=== PATIENT | female | born 1970 | race Caucasian/White ===

== ENCOUNTER 2017-05-03 11:02 | Emergency (ER) | payer OTHER ==
[2017-05-03 11:11] VITALS: BP 117/73; PULSE 83; TEMP 99.1; BMI 25.7
[2017-05-03] MEDS ORDERED: KETOROLAC TROMETHAMINE 60 MG/2 ML VIAL IM ONE (12:04)
--- NOTE | 2017-05-03 12:04 | PDOC ---
History of Present Illness - General Chief Complaint: Pain, Acute Stated Complaint: BACK PAIN Time Seen by Provider: 05/03/17 11:43 History Source: Patient Exam Limitations: No Limitations Past History - Past Medical History Allergies/Adverse Reactions: Allergies Allergy/AdvReac Type Severity Reaction Status Date / Time Iodinated Contrast- Oral and Allergy Hives Verified 05/03/17 11:07 IV Dye [Iodinated Contrast Media - IV Dye] Home Medications: Ambulatory Orders Levetiracetam [Keppra] 1,000 mg PO BID 03/17/15 Cyclobenzaprine HCl [Flexeril -] 10 mg PO HS #10 tablet 05/03/17 Ibuprofen 800 mg PO TID #30 tablet 05/03/17 COPD: No DVT: No Dementia: No Seizures: Yes - Surgical History Appendectomy: Yes - Immunization History Immunization Up to Date: Yes - Suicide/Smoking/Psychosocial Hx Smoking Status: No Smoking History: Never smoked Have you smoked in the past 12 months: No Number of Cigarettes Smoked Daily: 0 Information on smoking cessation initiated: No Hx Alcohol Use: No Drug/Substance Use Hx: No Substance Use Type: None Hx Substance Use Treatment: No *Physical Exam - Vital Signs Last Vital Signs Temp Pulse Resp BP Pulse Ox 99.1 F 83 15 117/73 98 05/03/17 11:08 05/03/17 11:08 05/03/17 11:08 05/03/17 11:08 05/03/17 11:08 *DC/Admit/Observation/Transfer Diagnosis at time of Disposition: Upper back pain on left side - Discharge Dispostion Disposition: HOME Condition at time of disposition: Good Admit: No - Prescriptions Prescriptions: Cyclobenzaprine HCl [Flexeril -] 10 mg PO HS #10 tablet Ibuprofen 800 mg PO TID #30 tablet - Referrals Referrals: Burt Mas MD [Staff Physician] - Kareem Clark MD [Staff Physician] - - Patient Instructions Printed Discharge Instructions: DI for Thoracic Back Pain Additional Instructions: You have back pain due to a muscle spasm. Please take ibuprofen 800 mg 3 times a day not to exceed 3000 mg a day. You were also prescribed Flexeril. Please take this medication every 8 hours for the first day. Then take the medication before you go to bed. Do not drive after taking this medication as it may make you sleepy. You may use warm compresses on your back to help with your symptoms. Please follow-up with your primary care doctor. If your symptoms do not resolve in 3-5 days, follow-up with orthopedics. A referral has been provided for you. Return to the emergency department if you have worsening back pain, bladder or bowel incontinence, numbness and tingling in her legs, changes in the way you walk, or any new or worsening symptoms. - Post Discharge Activity Forms/Work/School Notes: Back to Work
[2017-05-03] MEDS ORDERED: CYCLOBENZAPRINE HCL 10 MG TABLET (FP) PO ONE (12:06)
[2017-05-03] MEDS ORDERED: KETOROLAC TROMETHAMINE 60 MG/2 ML VIAL ONE (12:08)
[2017-05-03] MEDS ORDERED: CYCLOBENZAPRINE HCL 10 MG TABLET (FP) ONE (12:12)
== END 2017-05-03 12:44 | disposition home or self-care (01) ==
LOC: JERFT 11:02
PROC: 3E0233Z Introduction of Anti-inflammatory into Muscle, Percutaneous Approach (ICD-10-PCS; principal; 2017-05-03)
DX: M54.6 Pain in thoracic spine (principal); Z86.69 Personal history of other diseases of the nervous system and sense organs
CPT/HCPCS: 96372; 99281-25

== ENCOUNTER 2017-07-19 09:27 | Day surgery (SDC) | payer OTHER ==
[2017-07-16 15:10] VITALS: BMI 26.5
[2017-07-19] MEDS ORDERED: PROPOFOL 20 ML ONE (09:34)
[2017-07-19] MEDS ORDERED: LIDOCAINE HCL 2% (20ML MULTI-DOSE VIAL) NR ONE (09:34)
[2017-07-19 12:11] VITALS: TEMP 97.6
--- NOTE | 2017-07-19 12:16 | PROC ---
Endoscopy Procedure Endoscopy procedure completed. Please see scanned procedure report.
[2017-07-19 12:36] VITALS: PULSE 54
[2017-07-19 13:22] VITALS: BP 109/60
[2017-07-19] MEDS ORDERED: CITRIC ACID/SODIUM CITRATE 30 ML UNIT-DOSE CUP ONE (14:10)
--- NOTE | 2017-07-20 11:55 | PATH ---
Surgical Pathology Report Patient Name: ANURAG VALVERDE [facility]. Rec. #: [id number] /Age/Gender: 1970 (Age: 47) / F Account: [id number] Location: [facility]-ENDOSCOPY Taken: 07/19/2017 Received: 07/19/2017 Reported: 07/20/2017 Physicians: Ziggy Rivero M.D. Specimen(s) Received A: BX SECOND PORTION DUODENUM B: BX ANTRUM / BODY C: POLYP IN THE FUNDUS Clinical History Preoperative diagnosis: Epigastric pain, family history of GI malignancy Postoperative diagnosis: Polyp in the fundus, gastritis, normal colonoscopy Final Diagnosis A. DUODENUM, SECOND PORTION, BIOPSY: DUODENAL MUCOSA WITH NO PATHOLOGIC CHANGES. NO HISTOLOGIC EVIDENCE OF GLUTEN SENSITIVE ENTEROPATHY (CELIAC SPRUE) IDENTIFIED. B. STOMACH, ANTRUM AND BODY, BIOPSY: GASTRIC MUCOSA WITH NO PATHOLOGIC CHANGES. IMMUNOSTAIN FOR H. PYLORI IS NEGATIVE. C. STOMACH, FUNDUS POLYP, BIOPSY: HYPERPLASTIC FOVEOLAR GLAND POLYP WITH ASSOCIATED MILD CHRONIC INFLAMMATION. NO ADENOMATOUS CHANGE IDENTIFIED. IMMUNOSTAIN FOR H. PYLORI IS NEGATIVE. Electronically Signed Sunday Burch M.D. Gross Description A. Received in formalin, labeled "biopsy second portion of duodenum" is a shaw, irregular portion of soft tissue measuring 0.5 cm. in greatest dimension. The specimen is submitted in toto in one cassette. B. Received in formalin, labeled "biopsy antrum/body" are 3 shaw, irregular portions of soft tissue ranging from 0.1-0.3 cm. in greatest dimension. The specimens are submitted in toto in one cassette. C. Received in formalin, labeled "biopsy polyp in the fundus" are 2 shaw, irregular portions of soft tissue measuring 0.2 and 0.5 cm. in greatest dimension. The specimens are submitted in toto in one cassette. /07/19/201707/19/2017
== END 2017-07-19 14:09 | disposition home or self-care (01) ==
LOC: JASU-ENDO 09:27
PROVIDERS: ATTEND Internal Medicine Gastroenterology
PROC: 0DB68ZX Excision of Stomach, Via Natural or Artificial Opening Endoscopic, Diagnostic (ICD-10-PCS; 2017-07-19)
PROC: 0DJD8ZZ Inspection of Lower Intestinal Tract, Via Natural or Artificial Opening Endoscopic (ICD-10-PCS; 2017-07-19)
PROC: 0DB98ZX Excision of Duodenum, Via Natural or Artificial Opening Endoscopic, Diagnostic (ICD-10-PCS; principal; 2017-07-19 10:30)
DX: Z12.11 Encounter for screening for malignant neoplasm of colon (principal); Z80.0 Family history of malignant neoplasm of digestive organs; K64.8 Other hemorrhoids; K25.9 Gastric ulcer, unspecified as acute or chronic, without hemorrhage or perforation; K31.7 Polyp of stomach and duodenum
CPT/HCPCS: 43239; G0105; 88305-TC; 88342-TC

== ENCOUNTER 2018-04-25 23:49 | Inpatient (IN) | payer OTHER ==
--- NOTE | 2018-04-26 01:15 | PDOC ---
History of Present Illness - General Chief Complaint: Pain, Acute Stated Complaint: BACK PAIN Time Seen by Provider: 04/26/18 01:13 History Source: Patient - History of Present Illness Initial Comments: 04/26/18 01:47 48-year-old Female complaining of left-sided back pain radiating to left side abdomen for the last 10 days. Patient reports that for the past 3 days she's been having consistent pain to the left side/flank, dysuria, frequency of urination, chills. Patient has been taking Motrin at home with no relief in pain. Patient medical history : seizures, hysterectomy for DUB / right oopherctomy for cyst, left ovarian cyst multiple family members have history of renal disease, renal cancers. 04/26/18 04:12 Past History - Past Medical History Allergies/Adverse Reactions: Allergies Allergy/AdvReac Type Severity Reaction Status Date / Time Iodinated Contrast- Oral and Allergy Hives Verified 05/07/18 17:54 IV Dye [Iodinated Contrast Media - IV Dye] Home Medications: Ambulatory Orders Levetiracetam [Keppra] 1,000 mg PO BID 03/17/15 Propranolol HCl 20 mg PO DAILY 04/27/18 Anemia: No Asthma: No Cancer: No Cardiac Disorders: No CVA: No COPD: No CHF: No DVT: No Dementia: No Diabetes: No GI Disorders: No Disorders: No HTN: No Hypercholesterolemia: No Liver Disease: No Seizures: Yes (EPILEPSY) Thyroid Disease: No - Surgical History Abdominal Surgery: No Appendectomy: Yes Cardiac Surgery: No Cholecystectomy: No Lung Surgery: No Neurologic Surgery: No Orthopedic Surgery: No - Immunization History Immunization Up to Date: Yes - Suicide/Smoking/Psychosocial Hx Smoking Status: No Smoking History: Never smoked Have you smoked in the past 12 months: No Number of Cigarettes Smoked Daily: 0 Hx Alcohol Use: No Drug/Substance Use Hx: No Substance Use Type: None Hx Substance Use Treatment: No Review of Systems - Review of Systems Able to Perform ROS?: Yes Is the patient limited Sinhala proficient: No Constitutional: Yes: Chills ABD/GI: Yes: Abdominal cramping : Yes: Burning, Dysuria, Frequency, Flank Pain, Urgency *Physical Exam - Vital Signs 04/26/18 01:50 Last Vital Signs Temp Pulse Resp BP Pulse Ox 97.8 F 76 22 H 118/77 96 04/25/18 23:55 04/25/18 23:55 04/25/18 23:55 04/25/18 23:55 04/25/18 23:55 - Physical Exam General Appearance: Yes: Appropriately Dressed Gastrointestinal/Abdominal: positive: Normal Bowel Sounds, Tender (LLQ), Soft Musculoskeletal: positive: CVA Tenderness (L). negative: Vertebral Tenderness Extremity: positive: Normal Capillary Refill, Normal Inspection, Normal Range of Motion Integumentary: positive: Normal Color, Dry, Warm Neurologic: positive: Fully Oriented, Alert, Normal Mood/Affect ED Treatment Course - LABORATORY CBC & Chemistry Diagram: 04/27/18 07:00 04/27/18 07:00 Medical Decision Making - Medical Decision Making 04/26/18 01:51 A: pyelonephritis CT spiral: Mild left perinephric fat stranding and periureteral fat stranding may be due to pyelonephritis. Moderate left hydronephrosis and hydroureter. No stones in the left ureter and no stones in the bladder. Left adnexa 5 x 4.3 x 3.1 cm nonspecific mass like prominence of the left ovary with mild left adnexa fat stranding is suspicious for tubo-ovarian abscess infection or a benign or malignant left ovarian mass inseparable from the left distal ureter and associated infection or malignant spread near or surrounding the left distal ureter cannot be completely excluded with partial obstruction of the distal left ureter on axial images 96-109. If clinically indicated recommend correlation with Transabdominal Pelvic Ultrasound And Endovaginal Pelvic Ultrasound.04/26/18 04:11 04/26/18 04:[address] Felipe (interior decorator painting) recommends treatment of abscess. send tumor markers, patient to be admitted for further management of care. patient signed out to Dr. Bowman/ Dr cruz *DC/Admit/Observation/Transfer Diagnosis at time of Disposition: Acute left flank pain, Pyelonephritis, Intractable abdominal pain, Left tubo- ovarian abscess - Discharge Dispostion Disposition: HOME Condition at time of disposition: Good Decision to Admit order: Yes - Referrals - Patient Instructions - Post Discharge Activity
[2018-04-26] MEDS ORDERED: SODIUM CHLORIDE 0.9% 500 ML INFUS.BAG IV ONE (01:32)
[2018-04-26 01:52] LABS: URINE APPEARANCE CLOUDY; URINE BILIRUBIN NEGATIVE (<2.0 mg/dL); URINE COLOR YELLOW; URINE GLUCOSE (UA) NEGATIVE (NEGATIVE); URINE KETONE NEGATIVE (NEGATIVE); URINE LEUK ESTERASE 3+ (NEGATIVE); URINE NITRITE POSITIVE (NEGATIVE); URINE PROTEIN 1+ (NEGATIVE); URINE UROBILINOGEN NEGATIVE mg/dL (0.2-1.0)
[2018-04-26 01:59] LABS: EPI CELLS RARE /HPF (FEW); URINE BACTERIA RARE /hpf (NONE SEEN); URINE HYALINE CAST 3 /lpf; URINE MUCUS MANY
[2018-04-26] MEDS ORDERED: CEFTRIAXONE 1,000 MG in DEXTROSE 5%-WATER - 50 ML IVPB ONE (02:12)
[2018-04-26] MEDS ORDERED: KETOROLAC TROMETHAMINE 30 MG/1 ML VIAL IVPUSH ONE (02:13)
[2018-04-26] MEDS ORDERED: CEFTRIAXONE 1 GM/50 ML BAG ONE (02:17)
[2018-04-26] MEDS ORDERED: KETOROLAC TROMETHAMINE 30 MG/1 ML VIAL ONE (02:17)
[2018-04-26 02:54] LABS: HEMATOCRIT 39.1 % (32.4-45.2); HEMOGLOBIN 13.9 GM/dL (10.7-15.3); RBC 4.21 M/mm3 (3.60-5.2); WHITE BLOOD COUNT 13.2 K/mm3 (4.0-10.0)
[2018-04-26 02:55] LABS: BASO % 0.3 % (0-2.0); EOS % 0.3 % (0-4.5); LYMPH % 23.7 % (8-40); MCH 32.9 pg (25.7-33.7); MCHC 35.5 g/dl (32.0-36.0); MEAN CELL VOLUME 92.8 fl (80-96); MONO % 5.4 % (3.8-10.2); NEUT % 70.3 % (42.8-82.8); RDW 12.3 % (11.6-15.6)
[2018-04-26 03:17] LABS: PLATELET ESTIMATE NORMAL
[2018-04-26 03:20] LABS: ALBUMIN 4.2 g/dl (3.4-5.0); ALK PHOS 79 U/L (45-117); ANION GAP 6 MMOL/L (8-16); BILIRUBIN,TOTAL 0.4 mg/dL (0.2-1); BLOOD UREA NITROGEN 18 mg/dL (7-18); CHLORIDE 104 mmol/L (98-107); CO2 26 mmol/L (21-32); CREATININE 1.1 mg/dL (0.55-1.3); GLUCOSE,RANDOM 101 mg/dL (74-106); PLATELET COUNT 213 K/MM3 (134-434); POTASSIUM 4.2 mmol/L (3.5-5.1); SGOT/AST 22 U/L (15-37); SGPT/ALT 31 U/L (13-61); SODIUM 136 mmol/L (136-145); TOT PROT 8.2 g/dl (6.4-8.2)
[2018-04-26] MEDS ORDERED: DOXYCYCLINE INJECTION 100 MG in DEXTROSE 5%-WATER - 100 ML IVPB ONE (04:46)
[2018-04-26] MEDS ORDERED: morphine CARPU-JECT 4 MG/1 ML DISP.SYRIN IVPUSH ONE (04:50)
[2018-04-26] MEDS ORDERED: SODIUM CHLORIDE 1,000 ML IV SCH (05:00)
--- NOTE | 2018-04-26 05:32 | PN ---
Teaching Attending Note Name of Resident: Larry Bowman ATTENDING PHYSICIAN STATEMENT I saw and evaluated the patient. I reviewed the resident's note and discussed the case with the resident. I agree with the resident's findings and plan as documented. SUBJECTIVE: Seen and examined; please refer to resident note for further historical details. Briefly, this is a 48 y/o female presenting to the ER with 10 days of LLQ and flank pain not made better or worse with anything. Also endorses frequency and severe dysuria and dark urine. She has a history of seizures. Also has a history of R-ovarian cysts that resulted in a R-oopherectomy back in [place]; the L-side was known to have cysts at that time but operative management was deferred. She is not septic. +UA with WBC. 10 sys ROS done and negative aside from HPI PMH and PSH reviewed FH asked and noncontributory Socially denies alcohol or drug abuse Medications reviewed; pending reconciliation OBJECTIVE: VS, labs, imaging reviewed NAD, AAO, resting comfortably in bed RRR s1/2 no mgr Lungs CTAB w/ sym exp Flank pain to fist percussion, vague abd pain to deep palp Normal mood, appropriate behavior Labs show leukocytosis with 13 with elevated LACING OPERATOR count, unremarkable chemistry with normal LFTs. UA with +Nitrite, 3+ LE, +blood/protein. 166 WBC. Blood and urine cx pending EKG reviewed CT abdomen/pelvis shows on prelim read with [id number] L ovarian mass with fat stranding. Hemorrhagic cyst vs. tuboovarian abscess vs. benign v malig ovarian mass that would be inseparable from the L-distal ureter with possible partial ureteral obstruction. Final report pending ASSESSMENT AND PLAN: Patient presents with a UTI found to have a L-adenexal mass with broad ddx that may be causing potential L-uteteral obstruction 1) Acute Cystitis with Hematuria -Given concerns for #2 being a tuboovarian abscess will place on cefoxitin and doxycycline IV and monitor for response. Not septic. Consulting ID for further guidance. Followup blood and urine cultures. 2) L-adenexal mass with fat stranding -Broad ddx as discussed above; DIRECTOR OF INFECTION CONTROL was called by the ER who recommended serologic cancer Ag testing. They will see the patient today. -Placing on IV cefoxitin and doxycycline empirically, consulting ID. -Check Transvaginal US -Check GC probe, RPR -History of R-cysts noted -CA-125, Ca-19-9 ordered and pending 3) History of Seizures -Continue home keppra FENA -PO -PRN replete -Regular -As tolerated
[2018-04-26] MEDS ORDERED: morphine SULFATE 4 MG/ML VIAL ONE (06:22)
[2018-04-26] MEDS ORDERED: ACETAMINOPHEN 1000 MG/100 ML VIAL (NON FORMULARY) IVPB PRN (06:32)
--- NOTE | 2018-04-26 06:37 | HP ---
<Chris Ahumada - Last Filed: 04/26/18 07:02> CHIEF COMPLAINT: PCP: HISTORY OF PRESENT ILLNESS: 48 yo F w/ PMH seizures, hysterectomy for DUB / right oopherctomy for cyst, left ovarian cyst, p/w worsening left-sided flank pain radiating to left side abdomen down L leg x10d associated w/ brown urine, nausea, polyuria/urgency, and 1 episode of diarrhea. Patient reports that for the past 3 days she's been having consistent pain to the left side/flank, dysuria, frequency of urination, chills. Patient has been taking Motrin at home with no relief in pain. Of note, has a history of R-ovarian cysts that resulted in a R-oopherectomy back in [place]; the L-side was known to have cysts at that time but operative management was deferred. Denies fevers, cp ,NAVARRETE, vomit, hematuria ER course was notable for: (1)CTX, 1 L NS, toradol (2) CT A/P (3) Recent Travel: PAST MEDICAL HISTORY: per hpi PAST SURGICAL HISTORY: Appendectomy Social History: Smoking: denies Alcohol: denies Drugs: denies Family History: multiple family members have history of renal disease, renal cancers. Allergies Iodinated Contrast- Oral and IV Dye [Iodinated Contrast Media - IV Dye] Allergy (Verified 04/26/18 01:34) Hives HOME MEDICATIONS: Home Medications Medication Instructions Recorded Levetiracetam [Keppra] 1,000 mg PO BID 03/17/15 REVIEW OF SYSTEMS as per hpi PHYSICAL EXAMINATION Vital Signs - 24 hr 04/25/18 04/26/18 23:55 05:53 Temperature 97.8 F Pulse Rate 76 Respiratory 22 H Rate Blood Pressure 118/77 O2 Sat by Pulse 96 98 Oximetry (%) GENERAL: AOX3 NAD HEAD: Normal with no signs of trauma. EYES: Pupils equal, round and reactive to light, extraocular movements intact, sclera anicteric, conjunctiva clear. No lid lag. EARS, NOSE, THROAT: Ears normal, nares patent, oropharynx clear without exudates. Moist mucous membranes. NECK: Normal range of motion, supple without lymphadenopathy, JVD, or masses. LUNGS: Breath sounds equal, clear to auscultation bilaterally. No wheezes, and no crackles. No accessory muscle use. HEART: Regular rate and rhythm, normal S1 and S2 without murmur, rub or gallop. ABDOMEN: Soft, TTP LLQ and L lower back/flank, not distended, normoactive bowel sounds, no rebound, no masses. MUSCULOSKELETAL: Normal range of motion at all joints. No bony deformities or tenderness. UPPER EXTREMITIES: 2+ pulses, warm, well-perfused. No cyanosis. No clubbing. No peripheral edema. LOWER EXTREMITIES: 2+ pulses, warm, well-perfused. No calf tenderness. No peripheral edema. NEUROLOGICAL: Cranial nerves II-XII intact. Normal speech. PSYCHIATRIC: Cooperative. Good eye contact. Appropriate mood and affect. SKIN: Warm, dry, normal turgor, no rashes or lesions noted, normal capillary refill. Laboratory Results - last 24 hr 04/26/18 04/26/18 04/26/18 01:40 01:40 02:40 WBC 13.2 H RBC 4.21 Hgb 13.9 Hct 39.1 MCV 92.8 MCH 32.9 MCHC 35.5 RDW 12.3 Plt Count 213 MPV 9.0 Absolute Neuts (auto) 9.2 H Neutrophils % 70.3 D Lymphocytes % 23.7 D Monocytes % 5.4 Eosinophils % 0.3 Basophils % 0.3 Nucleated RBC % 0 Platelet Estimate Normal Platelet Comment Present Sodium Potassium Chloride Carbon Dioxide Anion Gap BUN Creatinine Creat Clearance w eGFR Random Glucose Calcium Total Bilirubin AST ALT Alkaline Phosphatase Total Protein Albumin Urine Color Yellow Urine Appearance Cloudy Urine pH 5.0 D Ur Specific [place] 1.018 Urine Protein 1+ H Urine Glucose (UA) Negative Urine Ketones Negative Urine Blood 2+ H Urine Nitrite Positive Urine Bilirubin Negative Urine Urobilinogen Negative Ur Leukocyte Esterase 3+ H Urine WBC (Auto) 166 Urine RBC (Auto) 11 Ur Epithelial Cells Rare Urine Bacteria Rare Hyaline Casts 3 Urine Mucus Many Urine HCG, Qual Negative 04/26/18 02:40 WBC RBC Hgb Hct MCV MCH MCHC RDW Plt Count MPV Absolute Neuts (auto) Neutrophils % Lymphocytes % Monocytes % Eosinophils % Basophils % Nucleated RBC % Platelet Estimate Platelet Comment Sodium 136 Potassium 4.2 Chloride 104 Carbon Dioxide 26 Anion Gap 6 L BUN 18 Creatinine 1.1 Creat Clearance w eGFR 53.47 Random Glucose 101 Calcium 9.0 Total Bilirubin 0.4 AST 22 ALT 31 Alkaline Phosphatase 79 Total Protein 8.2 Albumin 4.2 Urine Color Urine Appearance Urine pH Ur Specific [place] Urine Protein Urine Glucose (UA) Urine Ketones Urine Blood Urine Nitrite Urine Bilirubin Urine Urobilinogen Ur Leukocyte Esterase Urine WBC (Auto) Urine RBC (Auto) Ur Epithelial Cells Urine Bacteria Hyaline Casts Urine Mucus Urine HCG, Qual A: pyelonephritis CT spiral: Mild left perinephric fat stranding and periureteral fat stranding may be due to pyelonephritis. Moderate left hydronephrosis and hydroureter. No stones in the left ureter and no stones in the bladder. Left adnexa 5 x 4.3 x 3.1 cm nonspecific mass like prominence of the left ovary with mild left adnexa fat stranding is suspicious for tubo-ovarian abscess infection or a benign or malignant left ovarian mass inseparable from the left distal ureter and associated infection or malignant spread near or surrounding the left distal ureter cannot be completely excluded with partial obstruction of the distal left ureter on axial images 96-109. If clinically indicated recommend correlation with Transabdominal Pelvic Ultrasound And Endovaginal Pelvic Ultrasound.04/26/18 04:11 ASSESSMENT/PLAN: 48 yo F w/ PMH seizures, hysterectomy for DUB / right oopherctomy for cyst, left ovarian cyst, p/w worsening left-sided flank pain radiating to left side abdomen down L leg x10d associated w/ brown urine, nausea, polyuria/urgency, and 1 episode of diarrhea. UTI with Hematuria - afebrile. leukocytosis, pos UA ID consult s/p CTX, 1 L NS, toradol in ED cefoxitin and doxycycline IV for UTI as well as covering for concerns of a tuboovarian abscess Follow up blood and urine cultures. L-adenexal mass with fat stranding - CT A/P prelim read reviewed above -OBGYN consult -cefoxitin and doxycycline IV -Check Transvaginal US -Check GC probe, RPR -History of R-cysts noted -CA-125, Ca-19-9 ordered and pending, per OBGYN recs History of Seizures -Continue home keppra FEN -NS 125cc -PRN replete -NPO pending OBGYN eval for any potential procedures/drainage ppx SCDs for now, SQH or Lovenox pending OBGYN eval for any planned potential procedures/drainage Dispo Med surg Visit type - Emergency Visit Emergency Visit: Yes ED Registration Date: 04/26/18 Care time: The patient presented to the Emergency Department on the above date and was hospitalized for further evaluation of their emergent condition. - New Patient This patient is new to me today: Yes Date on this admission: 04/26/18 - Critical Care Critical Care patient: No <HelenacitlalijomarMehul - Last Filed: 05/09/18 19:41> Seen and examined;agree with all the above aside form as edited by me in my own note. Thank you. Was present for all vital parts of encounter; plan discussed with me. Agree with above as documented by the resident.
[2018-04-26] MEDS ORDERED: DOXYCYCLINE INJECTION 100 MG in DEXTROSE 5%-WATER - 100 ML IVPB SCH ×2 (06:45→16:00)
[2018-04-26] MEDS: SODIUM CHLORIDE 1,000 ML IV SCH ×2 (08:00→17:37)
[2018-04-26] MEDS: cefOXitin SODIUM 2 GM/50 PREMIX IN DEXTROSE (RESTRICTED TO ID) IVPB SCH ×2 (08:18→12:31)
[2018-04-26 08:29] VITALS: BMI 26.1
[2018-04-26] MEDS: levETIRAcetam 500 MG TABLET (FP) PO SCH ×2 (09:02→21:47)
[2018-04-26 09:05] LABS: BASO % 0.8 % (0-2.0); EOS % 0.5 % (0-4.5); HEMOGLOBIN 12.1 GM/dL (10.7-15.3); LYMPH % 28.2 % (8-40); MCH 31.6 pg (25.7-33.7); MCHC 33.5 g/dl (32.0-36.0); MEAN CELL VOLUME 94.2 fl (80-96); MEAN PLT VOLUME 7.7 fl (7.5-11.1); MONO % 6.2 % (3.8-10.2); NEUT % 64.3 % (42.8-82.8); PLATELET COUNT 176 K/MM3 (134-434); RBC 3.82 M/mm3 (3.60-5.2); RDW 12.2 % (11.6-15.6); WHITE BLOOD COUNT 6.5 K/mm3 (4.0-10.0)
[2018-04-26 09:39] LABS: ALBUMIN 3.5 g/dl (3.4-5.0); ALK PHOS 66 U/L (45-117); ANION GAP 8 MMOL/L (8-16); BILIRUBIN,TOTAL 0.4 mg/dL (0.2-1); BLOOD UREA NITROGEN 16 mg/dL (7-18); CALCIUM 8.1 mg/dL (8.5-10.1); CHLORIDE 109 mmol/L (98-107); CO2 24 mmol/L (21-32); CREATININE 1.8 mg/dL (0.55-1.3); GLUCOSE,RANDOM 99 mg/dL (74-106); PHOSPHOROUS 3.5 mg/dL (2.5-4.9); POTASSIUM 4.1 mmol/L (3.5-5.1); SGOT/AST 10 U/L (15-37); SGPT/ALT 24 U/L (13-61); SODIUM 141 mmol/L (136-145); TOT PROT 6.8 g/dl (6.4-8.2)
--- NOTE | 2018-04-26 09:59 | EKG ---
Test Reason : Blood Pressure : / mmHG Vent. Rate : 086 BPM Atrial Rate : 086 BPM P-R Int : 176 ms QRS Dur : 072 ms QT Int : 388 ms P-R-T Axes : 048 064 045 degrees QTc Int : 464 ms NORMAL SINUS RHYTHM NORMAL ECG WHEN COMPARED WITH ECG OF 19-AUG-2007 21:00, NO SIGNIFICANT CHANGE WAS FOUND Confirmed by Chirag Ken MD ([id number]) on 04/26/2018 9:58:51 AM Referred By: Confirmed By:Chirag Ken MD
--- NOTE | 2018-04-26 10:06 | CON.OBG ---
Consult Consult Specialty:: MANAGER GLOBAL COMMUNICATIONS Reason for Consultation:: Left ovarian cyst - History of Present Illness Chief Complaint: Left flank pain History of Present Illness: 48 yo F w/ PMH seizures, hysterectomy for DUB / right oopherctomy for cyst, left ovarian cyst, p/w worsening left-sided flank pain radiating to left side abdomen down L leg x10d associated w/ brown urine, nausea, polyuria/urgency, and 1 episode of diarrhea. Patient reports that for the past 3 days she's been having consistent pain to the left side/flank, dysuria, frequency of urination, chills. Patient has been taking Motrin at home with no relief in pain. She's seen and evaluated; she's lying in bed. No significant discomfort. She's afebrile. 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 No: Peripheral Neuropathy ...: No ...Para: 1 - Past Surgical History Past Surgical History: Yes: Hysterectomy, Appendectomy - Alcohol/Substance Use Hx Alcohol Use: No - Smoking History Smoking history: Never smoked Have you smoked in the past 12 months: No Aproximately how many cigarettes per day: 0 - Social History ADL: Independent History of Recent Travel: No Home Medications - Allergies Allergies/Adverse Reactions: Allergies Allergy/AdvReac Type Severity Reaction Status Date / Time Iodinated Contrast- Oral and Allergy Hives Verified 04/26/18 01:34 IV Dye [Iodinated Contrast Media - IV Dye] - Home Medications Home Medications: Ambulatory Orders Levetiracetam [Keppra] 1,000 mg PO BID 03/17/15 Family Disease History - Family Disease History Family Disease History: Diabetes: Father, Mother, Heart Disease: Father, Mother Review of Systems - Review of Systems Constitutional: reports: No Symptoms Eyes: reports: No Symptoms HENT: reports: No Symptoms Neck: reports: No Symptoms Cardiovascular: reports: No Symptoms Respiratory: reports: No Symptoms Gastrointestinal: reports: No Symptoms Genitourinary: reports: Pain Breasts: reports: No Symptoms Reported Musculoskeletal: reports: No Symptoms Pain Intensity: 6 Physical Exam-MANAGER GLOBAL COMMUNICATIONS Vital Signs: Vital Signs Temperature 97.6 F 04/26/18 08:21 Pulse Rate 82 04/26/18 08:21 Respiratory Rate 20 04/26/18 08:21 Blood Pressure 120/72 04/26/18 08:21 O2 Sat by Pulse Oximetry (%) 99 04/26/18 08:33 Constitutional: Yes: Well Nourished Eyes: Yes: Conjunctiva Clear HENT: Yes: Atraumatic Neck: Yes: Supple Cardiovascular: Yes: Regular Rate and Rhythm Respiratory: Yes: Regular Gastrointestinal: Yes: Normal Bowel Sounds Pelvis: Yes: WNL External Genitalia: Yes: Normal Vaginal Exam: Yes: Normal Breast(s): Yes: WNL Neurological: Yes: Alert, Oriented ...Motor Strength: WNL Psychiatric: Yes: Alert, Oriented Labs: CBC, BMP 04/26/18 08:40 04/26/18 08:40 Assessment/Plan Abdominal pain Pyelonephritis Left ovarian cyst F/U transvaginal sonogram F/U Tumor markers Continue antibiotic Continue analgesia
[2018-04-26 10:53] LABS: INR 1.09 (0.83-1.09); PROTHROMBIN TIME (PATIENT) 12.9 SEC (9.7-13.0)
[2018-04-26 10:55] LABS: ACTIVATED PTT 27.5 SECONDS (25.2-36.5)
--- NOTE | 2018-04-26 12:01 | CON.ID ---
Consult Consult Specialty:: infectious diseases Referred by:: hospitalist Reason for Consultation:: uti,sepsis - History of Present Illness Chief Complaint: left sided abd pain History of Present Illness: 48 yo F w/ PMH seizures, hysterectomy for DUB / right oopherctomy for cyst, left ovarian cyst,came to the hospital with left sided abd pain and left sided flank pain since 14 days .patient mentions that the pain is very severe.Denies any fever but has been having chills . also the pain radiating to the left flank taking motrin at home with no releif Of note, has a history of R-ovarian cysts that resulted in a R-oopherectomy back in [place]; the L-side was known to have cysts at that time but operative management was deferred. currently she comes with severe pain and says she is also nauseous no fevers - History Source History Provided By: Patient, Family Member Limitations to Obtaining History: No Limitations - Past Medical History SAFETY ADVISOR: Yes: Seizure. No: Peripheral Neuropathy ...: No - Past Surgical History Past Surgical History: Yes: Hysterectomy, Appendectomy - Alcohol/Substance Use Hx Alcohol Use: No - Smoking History Smoking history: Never smoked Have you smoked in the past 12 months: No Aproximately how many cigarettes per day: 0 - Social History ADL: Independent History of Recent Travel: No Home Medications - Allergies Allergies/Adverse Reactions: Allergies Allergy/AdvReac Type Severity Reaction Status Date / Time Iodinated Contrast- Oral and Allergy Hives Verified 04/26/18 01:34 IV Dye [Iodinated Contrast Media - IV Dye] - Home Medications Home Medications: Ambulatory Orders Levetiracetam [Keppra] 1,000 mg PO BID 03/17/15 Family Disease History - Family Disease History Family Disease History: Diabetes: Father, Mother, Heart Disease: Father, Mother Review of Systems - Review of Systems Constitutional: reports: Chills Eyes: reports: No Symptoms HENT: reports: No Symptoms Neck: reports: No Symptoms Cardiovascular: reports: No Symptoms Respiratory: reports: No Symptoms Gastrointestinal: reports: No Symptoms Genitourinary: reports: Flank Pain, Pain Musculoskeletal: reports: No Symptoms Integumentary: reports: No Symptoms Neurological: reports: No Symptoms Endocrine: reports: No Symptoms Hematology/Lymphatic: reports: No Symptoms Psychiatric: reports: No Symptoms Physical Exam Vital Signs: Vital Signs Temperature 97.6 F 04/26/18 08:21 Pulse Rate 82 04/26/18 08:21 Respiratory Rate 20 04/26/18 08:21 Blood Pressure 120/72 04/26/18 08:21 O2 Sat by Pulse Oximetry (%) 99 04/26/18 09:00 Constitutional: Yes: Calm, Moderate Distress Eyes: Yes: Conjunctiva Clear Neck: Yes: Supple, Trachea Midline Cardiovascular: Yes: Regular Rate and Rhythm Respiratory: Yes: Regular, CTA Bilaterally Gastrointestinal: Yes: Normal Bowel Sounds, Soft Renal/: Yes: CVA Tenderness - Right, Other Musculoskeletal: Yes: WNL Extremities: Yes: WNL Neurological: Yes: Alert, Oriented Psychiatric: Yes: Alert, Oriented Labs: CBC, BMP 04/26/18 08:40 04/26/18 08:40 Imaging - Results Chest X-ray: Report Reviewed, Image Reviewed Cat Scan: Report Reviewed, Image Reviewed Assessment/Plan 48 yo F w/ PMH seizures, hysterectomy for DUB / right oopherctomy for cyst, left ovarian cyst, p/w worsening left-sided flank pain radiating to left side abdomen down L leg x10d associated w/ brown urine, nausea, polyuria/urgency, and 1 episode of diarrhea. 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
[2018-04-26] MEDS: oxyCODONE HCL 5 MG TABLET PO PRN ×2 (13:06→21:49)
[2018-04-26] MEDS: DOCUSATE SODIUM 100 MG CAPSULE (FP) PO SCH (13:09)
[2018-04-26] MEDS ORDERED: DEXTROSE 5%-WATER - 50 ML IVPB ONE ×2 (13:13→17:27)
[2018-04-26] MEDS ORDERED: PIPERACILLIN/TAZOBACTAM 2.25 GM VIAL IVPB ONE ×2 (13:13→17:26)
[2018-04-26] MEDS: PIPERACILLIN/TAZOB 2.25 GM 2.25 GM in DEXTROSE 5%-WATER - 50 ML IVPB SCH ×2 (13:17→17:36)
--- NOTE | 2018-04-26 14:56 | PN ---
Physical Exam: SUBJECTIVE: Patient seen and examined this AM. She states that her pain is better but still present. She denies any fevers or chills overnight OBJECTIVE: Vital Signs Period Temp Pulse Resp BP Sys/Davis Pulse Ox Last 24 Hr 97.6 F-97.8 F 72-82 18-22 118-121/61-77 96-99 Laboratory Results - last 24 hr 04/26/18 04/26/18 04/26/18 01:40 01:40 02:40 WBC 13.2 H RBC 4.21 Hgb 13.9 Hct 39.1 MCV 92.8 MCH 32.9 MCHC 35.5 RDW 12.3 Plt Count 213 MPV 9.0 Absolute Neuts (auto) 9.2 H Neutrophils % 70.3 D Lymphocytes % 23.7 D Monocytes % 5.4 Eosinophils % 0.3 Basophils % 0.3 Nucleated RBC % 0 Platelet Estimate Normal Platelet Comment Present PT with INR INR PTT (Actin FS) Sodium Potassium Chloride Carbon Dioxide Anion Gap BUN Creatinine Creat Clearance w eGFR Random Glucose Calcium Phosphorus Magnesium Total Bilirubin AST ALT Alkaline Phosphatase Total Protein Albumin Urine Color Yellow Urine Appearance Cloudy Urine pH 5.0 D Ur Specific [place] 1.018 Urine Protein 1+ H Urine Glucose (UA) Negative Urine Ketones Negative Urine Blood 2+ H Urine Nitrite Positive Urine Bilirubin Negative Urine Urobilinogen Negative Ur Leukocyte Esterase 3+ H Urine WBC (Auto) 166 Urine RBC (Auto) 11 Ur Epithelial Cells Rare Urine Bacteria Rare Hyaline Casts 3 Urine Mucus Many Urine HCG, Qual Negative RPR Titer 04/26/18 04/26/18 04/26/18 02:40 08:40 08:40 WBC 6.5 RBC 3.82 Hgb 12.1 Hct 36.0 MCV 94.2 MCH 31.6 MCHC 33.5 RDW 12.2 Plt Count 176 MPV 7.7 D Absolute Neuts (auto) 4.2 Neutrophils % 64.3 Lymphocytes % 28.2 Monocytes % 6.2 Eosinophils % 0.5 Basophils % 0.8 Nucleated RBC % 0 Platelet Estimate Platelet Comment PT with INR INR PTT (Actin FS) Sodium 136 141 Potassium 4.2 4.1 Chloride 104 109 H Carbon Dioxide 26 24 Anion Gap 6 L 8 BUN 18 16 Creatinine 1.1 1.8 H Creat Clearance w eGFR 53.47 30.29 Random Glucose 101 99 Calcium 9.0 8.1 L Phosphorus 3.5 Magnesium 2.0 Total Bilirubin 0.4 0.4 AST 22 10 L ALT 31 24 Alkaline Phosphatase 79 66 Total Protein 8.2 6.8 Albumin 4.2 3.5 Urine Color Urine Appearance Urine pH Ur Specific [place] Urine Protein Urine Glucose (UA) Urine Ketones Urine Blood Urine Nitrite Urine Bilirubin Urine Urobilinogen Ur Leukocyte Esterase Urine WBC (Auto) Urine RBC (Auto) Ur Epithelial Cells Urine Bacteria Hyaline Casts Urine Mucus Urine HCG, Qual RPR Titer 04/26/18 04/26/18 08:40 10:17 WBC RBC Hgb Hct MCV MCH MCHC RDW Plt Count MPV Absolute Neuts (auto) Neutrophils % Lymphocytes % Monocytes % Eosinophils % Basophils % Nucleated RBC % Platelet Estimate Platelet Comment PT with INR 12.90 INR 1.09 PTT (Actin FS) 27.5 Sodium Potassium Chloride Carbon Dioxide Anion Gap BUN Creatinine Creat Clearance w eGFR Random Glucose Calcium Phosphorus Magnesium Total Bilirubin AST ALT Alkaline Phosphatase Total Protein Albumin Urine Color Urine Appearance Urine pH Ur Specific [place] Urine Protein Urine Glucose (UA) Urine Ketones Urine Blood Urine Nitrite Urine Bilirubin Urine Urobilinogen Ur Leukocyte Esterase Urine WBC (Auto) Urine RBC (Auto) Ur Epithelial Cells Urine Bacteria Hyaline Casts Urine Mucus Urine HCG, Qual RPR Titer Nonreactive Active Medications Generic Name Dose Route Start Last Admin Trade Name Freq PRN Reason Stop Dose Admin Acetaminophen 1,000 mg 04/26/18 06:32 04/26/18 11:02 Ofirmev Injection - IVPB 1,000 mg Q6H PRN Administration PAIN LEVEL 6-10 Docusate Sodium 100 mg 04/26/18 13:00 04/26/18 13:09 Colace - PO 100 mg DAILY RENATO Administration Cefoxitin Sodium 2 gm/ 100 mls @ 200 mls/hr 04/26/18 06:45 Dextrose IVPB Q6H-IV RENATO Protocol Sodium Chloride 1,000 mls @ 125 mls/hr 04/26/18 06:46 04/26/18 08:00 Normal Saline - IV 125 mls/hr ASDIR RENATO Administration Piperacillin Sod/Tazobactam 50 mls @ 100 mls/hr 04/26/18 12:30 04/26/18 13:17 Sod 2.25 gm/ Dextrose IVPB 100 mls/hr Q8H-IV RENATO Administration Protocol Levetiracetam 1,000 mg 04/26/18 10:00 04/26/18 09:02 Keppra - PO 1,000 mg BID RENATO Administration Oxycodone HCl 5 mg 04/26/18 12:22 04/26/18 13:06 Roxicodone - PO 5 mg Q4H PRN Administration PAIN LEVEL 6-10 ASSESSMENT/PLAN: 48 yo F w/ PMH seizures, hysterectomy for DUB / right oopherctomy for cyst, left ovarian cyst, admitted with worsening left-sided flank pain radiating to left side abdomen down L leg x10d associated w/ brown urine, nausea, polyuria/ urgency, and 1 episode of diarrhea. UTI with concerns for Ureteritis vs Pylonephritis -3+ LE, 166 WBCs, CT questionable for Ureteritis and mass like density in left hemipelvis -Gynecology Consult appreciated, no surgical intervention at this time likely pyelo -TVUS: several left ovarian follicles, recommend outpatient MRI to rule out malignancy -Tumor markers pending -Oxycodone 5 mg Q4 for pain, Colace PRN, Zofran PRN for nausea -ID consult appreciated: Zosyn -Will consult Urology with possibility of ureteritis. less concern for obstruction with CT findings but cannot be ruled out with Cr elevation Seizure Disorder -Currently stable with no seizures on this admission -Keppra 1000 mg PO BID DVT Prophylaxis -Lovenox 40 mg SQ Daily FEN -Fluids: NS @ 125 cc/hr -Electrolytes: No electrolyte abnormalities, BMP in AM -Nutrition: Clear liquids as tolerated, can advance when tolerating well Disposition Med/Surg Visit type - Emergency Visit Emergency Visit: Yes ED Registration Date: 04/26/18 Care time: The patient presented to the Emergency Department on the above date and was hospitalized for further evaluation of their emergent condition. - New Patient This patient is new to me today: No - Critical Care Critical Care patient: No
[2018-04-26] MEDS: ONDANSETRON 4 MG/2 ML VIAL IVPUSH PRN ×2 (16:10→21:46)
--- NOTE | 2018-04-26 16:21 | PN ---
Teaching Attending Note Name of Resident: Casey Max ATTENDING PHYSICIAN STATEMENT I saw and evaluated the patient. I reviewed the resident's note and discussed the case with the resident. I agree with the resident's findings and plan as documented. SUBJECTIVE: Patient is having left sided abdominal and flank pain. OBJECTIVE: Vital Signs Period Temp Pulse Resp BP Sys/Davis Pulse Ox Last 24 Hr 97.6 F-97.8 F 72-82 18-22 118-121/61-77 96-99 HEART: S1S2, RRR LUNGS: Clear ABDOMEN: Soft, non-distended, (+) LLQ tenderness, (+) left CVA tenderness, normal BS EXTREMITIES: No edema Laboratory Results - last 24 hr 04/26/18 04/26/18 04/26/18 01:40 01:40 02:40 WBC 13.2 H RBC 4.21 Hgb 13.9 Hct 39.1 MCV 92.8 MCH 32.9 MCHC 35.5 RDW 12.3 Plt Count 213 MPV 9.0 Absolute Neuts (auto) 9.2 H Neutrophils % 70.3 D Lymphocytes % 23.7 D Monocytes % 5.4 Eosinophils % 0.3 Basophils % 0.3 Nucleated RBC % 0 Platelet Estimate Normal Platelet Comment Present PT with INR INR PTT (Actin FS) Sodium Potassium Chloride Carbon Dioxide Anion Gap BUN Creatinine Creat Clearance w eGFR Random Glucose Calcium Phosphorus Magnesium Total Bilirubin AST ALT Alkaline Phosphatase Total Protein Albumin Urine Color Yellow Urine Appearance Cloudy Urine pH 5.0 D Ur Specific [place] 1.018 Urine Protein 1+ H Urine Glucose (UA) Negative Urine Ketones Negative Urine Blood 2+ H Urine Nitrite Positive Urine Bilirubin Negative Urine Urobilinogen Negative Ur Leukocyte Esterase 3+ H Urine WBC (Auto) 166 Urine RBC (Auto) 11 Ur Epithelial Cells Rare Urine Bacteria Rare Hyaline Casts 3 Urine Mucus Many Urine HCG, Qual Negative RPR Titer 04/26/18 04/26/18 04/26/18 02:40 08:40 08:40 WBC 6.5 RBC 3.82 Hgb 12.1 Hct 36.0 MCV 94.2 MCH 31.6 MCHC 33.5 RDW 12.2 Plt Count 176 MPV 7.7 D Absolute Neuts (auto) 4.2 Neutrophils % 64.3 Lymphocytes % 28.2 Monocytes % 6.2 Eosinophils % 0.5 Basophils % 0.8 Nucleated RBC % 0 Platelet Estimate Platelet Comment PT with INR INR PTT (Actin FS) Sodium 136 141 Potassium 4.2 4.1 Chloride 104 109 H Carbon Dioxide 26 24 Anion Gap 6 L 8 BUN 18 16 Creatinine 1.1 1.8 H Creat Clearance w eGFR 53.47 30.29 Random Glucose 101 99 Calcium 9.0 8.1 L Phosphorus 3.5 Magnesium 2.0 Total Bilirubin 0.4 0.4 AST 22 10 L ALT 31 24 Alkaline Phosphatase 79 66 Total Protein 8.2 6.8 Albumin 4.2 3.5 Urine Color Urine Appearance Urine pH Ur Specific [place] Urine Protein Urine Glucose (UA) Urine Ketones Urine Blood Urine Nitrite Urine Bilirubin Urine Urobilinogen Ur Leukocyte Esterase Urine WBC (Auto) Urine RBC (Auto) Ur Epithelial Cells Urine Bacteria Hyaline Casts Urine Mucus Urine HCG, Qual RPR Titer 04/26/18 04/26/18 08:40 10:17 WBC RBC Hgb Hct MCV MCH MCHC RDW Plt Count MPV Absolute Neuts (auto) Neutrophils % Lymphocytes % Monocytes % Eosinophils % Basophils % Nucleated RBC % Platelet Estimate Platelet Comment PT with INR 12.90 INR 1.09 PTT (Actin FS) 27.5 Sodium Potassium Chloride Carbon Dioxide Anion Gap BUN Creatinine Creat Clearance w eGFR Random Glucose Calcium Phosphorus Magnesium Total Bilirubin AST ALT Alkaline Phosphatase Total Protein Albumin Urine Color Urine Appearance Urine pH Ur Specific [place] Urine Protein Urine Glucose (UA) Urine Ketones Urine Blood Urine Nitrite Urine Bilirubin Urine Urobilinogen Ur Leukocyte Esterase Urine WBC (Auto) Urine RBC (Auto) Ur Epithelial Cells Urine Bacteria Hyaline Casts Urine Mucus Urine HCG, Qual RPR Titer Nonreactive Current Medications Generic Name Dose Route Start Last Admin Trade Name Jasonq PRN Reason Stop Dose Admin Acetaminophen 1,000 mg 04/26/18 06:32 04/26/18 11:02 Ofirmev Injection - IVPB 1,000 mg Q6H PRN Administration PAIN LEVEL 6-10 Docusate Sodium 100 mg 04/26/18 13:00 04/26/18 13:09 Colace - PO 100 mg DAILY RENATO Administration Cefoxitin Sodium 2 gm/ 100 mls @ 200 mls/hr 04/26/18 06:45 Dextrose IVPB Q6H-IV RENATO Protocol Sodium Chloride 1,000 mls @ 125 mls/hr 04/26/18 06:46 04/26/18 08:00 Normal Saline - IV 125 mls/hr ASDIR RENATO Administration Piperacillin Sod/Tazobactam 50 mls @ 100 mls/hr 04/26/18 12:30 04/26/18 13:17 Sod 2.25 gm/ Dextrose IVPB 100 mls/hr Q8H-IV RENATO Administration Protocol Levetiracetam 1,000 mg 04/26/18 10:00 04/26/18 09:02 Keppra - PO 1,000 mg BID RENATO Administration Ondansetron HCl 4 mg 04/26/18 16:04 04/26/18 16:10 Zofran Injection IVPUSH 4 mg Q6H PRN Administration NAUSEA Oxycodone HCl 5 mg 04/26/18 12:22 04/26/18 13:06 Roxicodone - PO 5 mg Q4H PRN Administration PAIN LEVEL 6-10 ASSESSMENT AND PLAN: This is a 48 year old woman with a history of seizures, ovarian cysts, right oophorectomy, abnormal uterine bleeding, hysterectomy who presented to the ED with left flank and left abdominal pain with nausea, urinary frequency and urgency, brown urine, chills, and diarrhea 1. Acute cystitis with hematuria, left pelvic mass with fat stranding -Given concerns for #2 being a tuboovarian abscess will place on cefoxitin and doxycycline IV and monitor for response. Not septic. Consulting ID for further guidance. Followup blood and urine cultures. -Broad ddx as discussed above; [employer] JOU[employer]LIST was called by the ER who recommended serologic cancer Ag testing. They will see the patient today. -Placing on IV cefoxitin and doxycycline empirically, consulting ID. -Check Transvaginal US -Check GC probe, RPR -History of R-cysts noted -CA-125, Ca-19-9 ordered and pending 2. History of seizures -Continue home keppra
--- NOTE | 2018-04-26 19:02 | CONSULT ---
Consult - text type - Consultation Consultation Note: CC: left ovarian abscess with uti hpi: Patient with history of mass involving left ovary. Patient also with uti but is afebrile. Patient does have left flank and lower pelvic pain with nausea. Patient has also had a bump in her creatinine to 1.8 PE afebrile/VSS abd- mild left CVAT with left lower quadran tenderness imp left ovarian abscess with involvement of left ureter with mild left hydro plan follow creatinine continue iv antibiotics for left ovarian abscess
[2018-04-27] MEDS ORDERED: DEXTROSE 5%-WATER - 50 ML IVPB ONE ×3 (01:57→16:46)
[2018-04-27] MEDS ORDERED: PIPERACILLIN/TAZOBACTAM 2.25 GM VIAL IVPB ONE ×2 (01:57→09:10)
[2018-04-27] MEDS: PIPERACILLIN/TAZOB 2.25 GM 2.25 GM in DEXTROSE 5%-WATER - 50 ML IVPB SCH ×2 (02:05→11:05)
[2018-04-27] MEDS: oxyCODONE HCL 5 MG TABLET PO PRN ×2 (02:05→21:53)
[2018-04-27] MEDS: SODIUM CHLORIDE 1,000 ML IV SCH ×2 (07:45→20:30)
[2018-04-27 07:46] LABS: BASO % 0.6 % (0-2.0); EOS % 1.2 % (0-4.5); HEMOGLOBIN 10.9 GM/dL (10.7-15.3); LYMPH % 36.9 % (8-40); MCH 32.8 pg (25.7-33.7); MCHC 35.2 g/dl (32.0-36.0); MEAN PLT VOLUME 7.7 fl (7.5-11.1); MONO % 5.2 % (3.8-10.2); NEUT % 56.1 % (42.8-82.8); PLATELET COUNT 175 K/MM3 (134-434); RBC 3.33 M/mm3 (3.60-5.2); RDW 12.2 % (11.6-15.6); WHITE BLOOD COUNT 5.2 K/mm3 (4.0-10.0)
[2018-04-27] MEDS: CEFOXITIN SODIUM 2 GM in DEXTROSE 5%-WATER - 100 ML IVPB SCH (07:46)
[2018-04-27 08:18] LABS: ANION GAP 3 MMOL/L (8-16); BLOOD UREA NITROGEN 9 mg/dL (7-18); CALCIUM 8.2 mg/dL (8.5-10.1); CHLORIDE 111 mmol/L (98-107); CO2 26 mmol/L (21-32); CREATININE 0.7 mg/dL (0.55-1.3); GLUCOSE,RANDOM 83 mg/dL (74-106); MAGNESIUM 2.2 mg/dL (1.8-2.4); PHOSPHOROUS 3.1 mg/dL (2.5-4.9); POTASSIUM 4.4 mmol/L (3.5-5.1); SODIUM 140 mmol/L (136-145)
[2018-04-27] MEDS: levETIRAcetam 500 MG TABLET (FP) PO SCH ×2 (11:02→21:50)
[2018-04-27] MEDS: ENOXAPARIN NA (PORCINE) 40 MG/0.4 ML DISP.SYRIN SQ SCH (11:02)
[2018-04-27] MEDS: DOCUSATE SODIUM 100 MG CAPSULE (FP) PO SCH (11:03)
--- NOTE | 2018-04-27 11:57 | PN ---
Progress Note, Physician History of Present Illness: patient stable still with pain urology note noted - Current Medication List Current Medications: Active Medications Acetaminophen (Ofirmev Injection -) 1,000 mg IVPB Q6H PRN PRN Reason: PAIN LEVEL 6-10 Last Admin: 04/26/18 11:02 Dose: 1,000 mg Docusate Sodium (Colace -) 100 mg PO DAILY [facility] Last Admin: 04/27/18 11:03 Dose: 100 mg Enoxaparin Sodium (Lovenox -) 40 mg SQ DAILY [facility] Last Admin: 04/27/18 11:02 Dose: 40 mg Sodium Chloride (Normal Saline -) 1,000 mls @ 125 mls/hr IV ASDIR [facility] Last Admin: 04/27/18 07:45 Dose: Not Given Piperacillin Sod/Tazobactam (Sod 2.25 gm/ Dextrose) 50 mls @ 100 mls/hr IVPB Q8H-IV RENATO; Protocol Last Admin: 04/27/18 11:05 Dose: 100 mls/hr Levetiracetam (Keppra -) 1,000 mg PO BID [facility] Last Admin: 04/27/18 11:02 Dose: 1,000 mg Ondansetron HCl (Zofran Injection) 4 mg IVPUSH Q6H PRN PRN Reason: NAUSEA Last Admin: 04/26/18 21:46 Dose: 4 mg Oxycodone HCl (Roxicodone -) 5 mg PO Q4H PRN PRN Reason: PAIN LEVEL 6-10 Last Admin: 04/27/18 02:05 Dose: 5 mg - Objective Vital Signs: Vital Signs Temperature 98.3 F 04/27/18 06:38 Pulse Rate 82 04/27/18 06:38 Respiratory Rate 20 04/27/18 06:38 Blood Pressure 85/53 L 04/27/18 06:38 O2 Sat by Pulse Oximetry (%) 94 L 04/26/18 21:00 Constitutional: Yes: No Distress, Calm Cardiovascular: Yes: Regular Rate and Rhythm Respiratory: Yes: Regular, CTA Bilaterally Gastrointestinal: Yes: Normal Bowel Sounds, Soft Musculoskeletal: Yes: WNL Extremities: Yes: WNL Neurological: Yes: Alert, Oriented Psychiatric: Yes: Alert, Oriented Labs: CBC, BMP 04/27/18 07:00 04/27/18 07:00 INR, PTT INR 1.09 (0.83-1.09) 04/26/18 10:17 Assessment/Plan 48 yo F w/ PMH seizures, hysterectomy for DUB / right oopherctomy for cyst, left ovarian cyst, p/w worsening left-sided flank pain radiating to left side abdomen down L leg x10d associated w/ brown urine, nausea, polyuria/urgency, and 1 episode of diarrhea. UTI Hematuria - L-adenexal mass with fat stranding seizures ureteritis ac renal failure leukocytosis creatinine has normalized plan continue abx await for plan for the mass/abscess rest as per the team monitor enal functions will change dose of abx
--- NOTE | 2018-04-27 13:36 | PN ---
Progress Note, Physician History of Present Illness: 48 yo F w/ PMH seizures, hysterectomy for DUB / right oopherctomy for cyst, left ovarian cyst, p/w worsening left-sided flank pain radiating to left side abdomen down L leg x10d associated w/ brown urine, nausea, polyuria/urgency, and 1 episode of diarrhea. Patient reports that for the past 3 days she's been having consistent pain to the left side/flank, dysuria, frequency of urination, chills. Patient has been taking Motrin at home with no relief in pain. Transvaginal sonogram and tumor markers reviewed; there's evidence of left ovarian follicles but tumor markers are WNL. Ovarian neoplasm is unlikely. - Current Medication List Current Medications: Active Medications Acetaminophen (Ofirmev Injection -) 1,000 mg IVPB Q6H PRN PRN Reason: PAIN LEVEL 6-10 Last Admin: 04/26/18 11:02 Dose: 1,000 mg Docusate Sodium (Colace -) 100 mg PO DAILY [facility] Last Admin: 04/27/18 11:03 Dose: 100 mg Enoxaparin Sodium (Lovenox -) 40 mg SQ DAILY [facility] Last Admin: 04/27/18 11:02 Dose: 40 mg Sodium Chloride (Normal Saline -) 1,000 mls @ 125 mls/hr IV ASDIR [facility] Last Admin: 04/27/18 07:45 Dose: Not Given Piperacillin Sod/Tazobactam (Sod 3.375 gm/ Dextrose) 50 mls @ 100 mls/hr IVPB Q8H-IV RENATO; Protocol Levetiracetam (Keppra -) 1,000 mg PO BID [facility] Last Admin: 04/27/18 11:02 Dose: 1,000 mg Ondansetron HCl (Zofran Injection) 4 mg IVPUSH Q6H PRN PRN Reason: NAUSEA Last Admin: 04/26/18 21:46 Dose: 4 mg Oxycodone HCl (Roxicodone -) 5 mg PO Q4H PRN PRN Reason: PAIN LEVEL 6-10 Last Admin: 04/27/18 02:05 Dose: 5 mg - Objective Vital Signs: Vital Signs Temperature 98.3 F 04/27/18 06:38 Pulse Rate 82 04/27/18 06:38 Respiratory Rate 20 04/27/18 06:38 Blood Pressure 85/53 L 04/27/18 06:38 O2 Sat by Pulse Oximetry (%) 94 L 04/26/18 21:00 Constitutional: Yes: Well Nourished Eyes: Yes: Conjunctiva Clear HENT: Yes: Atraumatic Neck: Yes: Supple Cardiovascular: Yes: Regular Rate and Rhythm Respiratory: Yes: Regular Gastrointestinal: Yes: Normal Bowel Sounds Neurological: Yes: Alert, Oriented Psychiatric: Yes: Alert, Oriented Labs: CBC, BMP 04/27/18 07:00 04/27/18 07:00 INR, PTT INR 1.09 (0.83-1.09) 04/26/18 10:17 Assessment/Plan Abdominal pain Pyelonephritis Left ovarian cyst Continue management as per PMD F/U with [employer] as outpatient
[2018-04-27] MEDS: PIPERACILLIN/TAZOB 3.375 GM 3.375 GM in DEXTROSE 5%-WATER - 50 ML IVPB SCH ×2 (14:22→17:19)
[2018-04-27] MEDS ORDERED: ACETAMINOPHEN/CAFFEINE/BUTALBITAL 1 TAB PO ONE (16:15)
[2018-04-27] MEDS ORDERED: PIPERACILLIN/TAZOBACTAM 3.375 GM VIAL IVPB ONE (16:46)
--- NOTE | 2018-04-27 17:40 | PN ---
Teaching Attending Note Name of Resident: Casey Max ATTENDING PHYSICIAN STATEMENT I saw and evaluated the patient. I reviewed the resident's note and discussed the case with the resident. I agree with the resident's findings and plan as documented. SUBJECTIVE: Patient reports left flank/abdominal pain is improving. OBJECTIVE: Vital Signs Period Temp Pulse Resp BP Sys/Davis Pulse Ox Last 24 Hr 97.9 F-98.9 F 77-83 18-20 82-103/53-65 94 HEART: S1S2, RRR LUNGS: Clear ABDOMEN: Soft, non-distended, (+) LLQ tenderness, (+) left CVA tenderness, normal BS EXTREMITIES: No edema Laboratory Results - last 24 hr 04/26/18 04/27/18 04/27/18 08:40 07:00 07:00 WBC 5.2 RBC 3.33 L Hgb 10.9 Hct 31.0 L MCV 93.0 MCH 32.8 MCHC 35.2 RDW 12.2 Plt Count 175 MPV 7.7 Absolute Neuts (auto) 2.9 Neutrophils % 56.1 Lymphocytes % 36.9 D Monocytes % 5.2 Eosinophils % 1.2 D Basophils % 0.6 Nucleated RBC % 0 Sodium 140 Potassium 4.4 Chloride 111 H Carbon Dioxide 26 Anion Gap 3 L BUN 9 Creatinine 0.7 Creat Clearance w eGFR > 60 Random Glucose 83 Calcium 8.2 L Phosphorus 3.1 Magnesium 2.2 CA 19-9 Antigen 13 CA 125 Antigen 5.1 Current Medications Generic Name Dose Route Start Last Admin Trade Name Freq PRN Reason Stop Dose Admin Docusate Sodium 100 mg 04/26/18 13:00 04/27/18 11:03 Colace - PO 100 mg DAILY RENATO Administration Enoxaparin Sodium 40 mg 04/27/18 10:00 04/27/18 11:02 Lovenox - SQ 40 mg DAILY RENATO Administration Sodium Chloride 1,000 mls @ 125 mls/hr 04/26/18 06:46 04/27/18 07:45 Normal Saline - IV Not Given ASDIR RENATO Piperacillin Sod/Tazobactam 50 mls @ 100 mls/hr 04/27/18 12:00 04/27/18 17:19 Sod 3.375 gm/ Dextrose IVPB 100 mls/hr Q8H-IV RENATO Administration Protocol Levetiracetam 1,000 mg 04/26/18 10:00 04/27/18 11:02 Keppra - PO 1,000 mg BID RENATO Administration Ondansetron HCl 4 mg 04/26/18 16:04 04/26/18 21:46 Zofran Injection IVPUSH 4 mg Q6H PRN Administration NAUSEA Oxycodone HCl 5 mg 04/26/18 12:22 04/27/18 02:05 Roxicodone - PO 5 mg Q4H PRN Administration PAIN LEVEL 6-10 Propranolol HCl 20 mg 04/27/18 16:15 04/27/18 17:19 Inderal - PO 20 mg DAILY RENATO Administration ASSESSMENT AND PLAN:
--- NOTE | 2018-04-27 17:52 | PN ---
Physical Exam: SUBJECTIVE: Patient seen and examined this AM. Abdominal pain improving, though pt complains of headache. She states she gets regular headaches at home and has a medication she takes but does not know the name of it. OBJECTIVE: Vital Signs Period Temp Pulse Resp BP Sys/Davis Pulse Ox Last 24 Hr 97.9 F-98.9 F 77-83 18-20 82-103/53-65 94 GENERAL: A&O, no acute distress HEAD: Normocephalic, atraumatic. EYES: PERRL, no scleral icterus EARS, NOSE, THROAT: oropharynx clear without exudates. Moist mucous membranes. NECK: supple without lymphadenopathy LUNGS: CTA b/l, no crackles or wheezes HEART: Regular rate and rhythm, normal S1 and S2 without murmur ABDOMEN: Soft, tender to palpation more so on the left, normoactive bowel sounds MUSCULOSKELETAL: Left sided CVA tenderness EXTREMITIES: 2+ pulses, warm, well-perfused. No peripheral edema. NEUROLOGICAL: Cranial nerves II-XII grossly intact. Normal speech. PSYCHIATRIC: Cooperative. Good eye contact. Appropriate mood and affect. SKIN: Warm, dry, no rashes or lesions noted Laboratory Results - last 24 hr 04/26/18 04/27/18 04/27/18 08:40 07:00 07:00 WBC 5.2 RBC 3.33 L Hgb 10.9 Hct 31.0 L MCV 93.0 MCH 32.8 MCHC 35.2 RDW 12.2 Plt Count 175 MPV 7.7 Absolute Neuts (auto) 2.9 Neutrophils % 56.1 Lymphocytes % 36.9 D Monocytes % 5.2 Eosinophils % 1.2 D Basophils % 0.6 Nucleated RBC % 0 Sodium 140 Potassium 4.4 Chloride 111 H Carbon Dioxide 26 Anion Gap 3 L BUN 9 Creatinine 0.7 Creat Clearance w eGFR > 60 Random Glucose 83 Calcium 8.2 L Phosphorus 3.1 Magnesium 2.2 CA 19-9 Antigen 13 CA 125 Antigen 5.1 Active Medications Generic Name Dose Route Start Last Admin Trade Name Freq PRN Reason Stop Dose Admin Docusate Sodium 100 mg 04/26/18 13:00 04/27/18 11:03 Colace - PO 100 mg DAILY RENATO Administration Enoxaparin Sodium 40 mg 04/27/18 10:00 04/27/18 11:02 Lovenox - SQ 40 mg DAILY RENATO Administration Sodium Chloride 1,000 mls @ 125 mls/hr 04/26/18 06:46 04/27/18 07:45 Normal Saline - IV Not Given ASDIR RENATO Piperacillin Sod/Tazobactam 50 mls @ 100 mls/hr 04/27/18 12:00 04/27/18 17:19 Sod 3.375 gm/ Dextrose IVPB 100 mls/hr Q8H-IV RENATO Administration Protocol Levetiracetam 1,000 mg 04/26/18 10:00 04/27/18 11:02 Keppra - PO 1,000 mg BID RENATO Administration Ondansetron HCl 4 mg 04/26/18 16:04 04/26/18 21:46 Zofran Injection IVPUSH 4 mg Q6H PRN Administration NAUSEA Oxycodone HCl 5 mg 04/26/18 12:22 04/27/18 02:05 Roxicodone - PO 5 mg Q4H PRN Administration PAIN LEVEL 6-10 Propranolol HCl 20 mg 04/27/18 16:15 04/27/18 17:19 Inderal - PO 20 mg DAILY RENATO Administration ASSESSMENT/PLAN: 48 yo F w/ PMH seizures, hysterectomy for DUB / right oopherctomy for cyst, left ovarian cyst, admitted with worsening left-sided flank pain radiating to left side abdomen down L leg x10d associated w/ brown urine, nausea, polyuria/ urgency, and 1 episode of diarrhea. UTI with concerns for Ureteritis vs Pylonephritis -3+ LE, 166 WBCs, CT questionable for Ureteritis and mass like density in left hemipelvis -Gynecology Consult appreciated, no surgical intervention at this time likely pyelo -TVUS: several left ovarian follicles, recommend outpatient MRI to rule out malignancy -Tumor markers normal, unlikely ovarian malignancy -Oxycodone 5 mg Q4 for pain, Colace PRN, Zofran PRN for nausea -ID consult appreciated: Zosyn -Urology recommends no surgical management at this time, continue abx for pylo Seizure Disorder -Currently stable with no seizures on this admission -Keppra 1000 mg PO BID Headache, possible migraine disorder -Continue home propranolol -Will give one time Fioricet and reevaluate DVT Prophylaxis -Lovenox 40 mg SQ Daily FEN -Fluids: NS @ 125 cc/hr -Electrolytes: No electrolyte abnormalities, BMP in AM -Nutrition: Regular diet Disposition Med/Surg Visit type - Emergency Visit Emergency Visit: Yes ED Registration Date: 04/26/18 Care time: The patient presented to the Emergency Department on the above date and was hospitalized for further evaluation of their emergent condition. - New Patient This patient is new to me today: No - Critical Care Critical Care patient: No
[2018-04-28] MEDS ORDERED: PIPERACILLIN/TAZOBACTAM 3.375 GM VIAL IVPB ONE ×2 (02:50→08:57)
[2018-04-28] MEDS ORDERED: DEXTROSE 5%-WATER - 50 ML IVPB ONE ×3 (02:50→16:07)
[2018-04-28] MEDS: PIPERACILLIN/TAZOB 3.375 GM 3.375 GM in DEXTROSE 5%-WATER - 50 ML IVPB SCH ×2 (03:00→09:49)
[2018-04-28] MEDS: SODIUM CHLORIDE 1,000 ML IV SCH ×2 (06:12→22:58)
[2018-04-28] MEDS ORDERED: oxyCODONE HCL 5 MG TABLET PO PRN (07:52)
[2018-04-28] MEDS ORDERED: PT OWN MED DRAWER 7, Y5N ONE (08:56)
[2018-04-28] MEDS: ENOXAPARIN NA (PORCINE) 40 MG/0.4 ML DISP.SYRIN SQ SCH (09:49)
[2018-04-28] MEDS: DOCUSATE SODIUM 100 MG CAPSULE (FP) PO SCH (09:49)
[2018-04-28] MEDS: levETIRAcetam 500 MG TABLET (FP) PO SCH ×2 (09:49→21:40)
--- NOTE | 2018-04-28 14:32 | PN ---
Physical Exam: SUBJECTIVE: Patient seen and examined this AM. She states that her headache is improved though she is still having left sided abdominal and flank pain which is also present somewhat on the right flank as well. OBJECTIVE: Vital Signs Period Temp Pulse Resp BP Sys/Davis Pulse Ox Last 24 Hr 97.9 F-98.4 F 64-83 18-20 102-114/60-70 96-96 GENERAL: A&O, no acute distress HEAD: Normocephalic, atraumatic. EYES: PERRL, no scleral icterus EARS, NOSE, THROAT: oropharynx clear without exudates. Moist mucous membranes. NECK: supple without lymphadenopathy LUNGS: CTA b/l, no crackles or wheezes HEART: Regular rate and rhythm, normal S1 and S2 without murmur ABDOMEN: Soft, tender to palpation more so on the left, normoactive bowel sounds MUSCULOSKELETAL: Left sided CVA tenderness EXTREMITIES: 2+ pulses, warm, well-perfused. No peripheral edema. NEUROLOGICAL: Cranial nerves II-XII grossly intact. Normal speech. PSYCHIATRIC: Cooperative. Good eye contact. Appropriate mood and affect. SKIN: Warm, dry, no rashes or lesions noted Active Medications Generic Name Dose Route Start Last Admin Trade Name Freq PRN Reason Stop Dose Admin Docusate Sodium 100 mg 04/26/18 13:00 04/28/18 09:49 Colace - PO 100 mg DAILY RENATO Administration Enoxaparin Sodium 40 mg 04/27/18 10:00 04/28/18 09:49 Lovenox - SQ 40 mg DAILY RENATO Administration Sodium Chloride 1,000 mls @ 125 mls/hr 04/26/18 06:46 04/28/18 06:12 Normal Saline - IV 125 mls/hr ASDIR RENATO Administration Piperacillin Sod/Tazobactam 50 mls @ 100 mls/hr 04/27/18 12:00 04/28/18 09:49 Sod 3.375 gm/ Dextrose IVPB 100 mls/hr Q8H-IV RENATO Administration Protocol Levetiracetam 1,000 mg 04/26/18 10:00 04/28/18 09:49 Keppra - PO 1,000 mg BID RENATO Administration Ondansetron HCl 4 mg 04/26/18 16:04 04/26/18 21:46 Zofran Injection IVPUSH 4 mg Q6H PRN Administration NAUSEA Propranolol HCl 20 mg 04/27/18 16:15 04/28/18 09:49 Inderal - PO 20 mg DAILY RENATO Administration ASSESSMENT/PLAN: 48 yo F w/ PMH seizures, hysterectomy for DUB / right oopherctomy for cyst, left ovarian cyst, admitted with worsening left-sided flank pain radiating to left side abdomen down L leg x10d associated w/ brown urine, nausea, polyuria/ urgency, and 1 episode of diarrhea. UTI with concerns for Ureteritis vs Pylonephritis -3+ LE, 166 WBCs, CT questionable for Ureteritis and mass like density in left hemipelvis -Gynecology Consult appreciated, no surgical intervention at this time likely pyelo -TVUS: several left ovarian follicles, recommend outpatient MRI to rule out malignancy -Tumor markers normal, unlikely ovarian malignancy -Zofran PRN for nausea -Oxycodone d/c as pt was not requiring -ID consult appreciated: Zosyn switched to Ceftriaxone -Urology recommends no surgical management at this time, continue abx for pylo Seizure Disorder -Currently stable with no seizures on this admission -Keppra 1000 mg PO BID Headache, possible migraine disorder -Continue home propranolol -Fioricet once with good effect, discussed with pt to ask for more if further headaches DVT Prophylaxis -Lovenox 40 mg SQ Daily FEN -Fluids: NS @ 125 cc/hr -Electrolytes: No electrolyte abnormalities, BMP in AM -Nutrition: Regular diet Disposition Med/Surg Visit type - Emergency Visit Emergency Visit: Yes ED Registration Date: 04/26/18 Care time: The patient presented to the Emergency Department on the above date and was hospitalized for further evaluation of their emergent condition. - New Patient This patient is new to me today: No - Critical Care Critical Care patient: No
--- NOTE | 2018-04-28 15:39 | PN ---
Progress Note, Physician History of Present Illness: stable says pain better had 2 loose bowel movement greenish in color - Current Medication List Current Medications: Active Medications Docusate Sodium (Colace -) 100 mg PO DAILY [facility] Last Admin: 04/28/18 09:49 Dose: 100 mg Enoxaparin Sodium (Lovenox -) 40 mg SQ DAILY [facility] Last Admin: 04/28/18 09:49 Dose: 40 mg Sodium Chloride (Normal Saline -) 1,000 mls @ 125 mls/hr IV ASDIR [facility] Last Admin: 04/28/18 06:12 Dose: 125 mls/hr Piperacillin Sod/Tazobactam (Sod 3.375 gm/ Dextrose) 50 mls @ 100 mls/hr IVPB Q8H-IV RENATO; Protocol Last Admin: 04/28/18 09:49 Dose: 100 mls/hr Levetiracetam (Keppra -) 1,000 mg PO BID [facility] Last Admin: 04/28/18 09:49 Dose: 1,000 mg Ondansetron HCl (Zofran Injection) 4 mg IVPUSH Q6H PRN PRN Reason: NAUSEA Last Admin: 04/26/18 21:46 Dose: 4 mg Propranolol HCl (Inderal -) 20 mg PO DAILY [facility] Last Admin: 04/28/18 09:49 Dose: 20 mg - Objective Vital Signs: Vital Signs Temperature 98.3 F 04/28/18 15:30 Pulse Rate 82 04/28/18 15:30 Respiratory Rate 18 04/28/18 15:30 Blood Pressure 123/70 04/28/18 15:30 O2 Sat by Pulse Oximetry (%) 96 04/28/18 09:00 Constitutional: Yes: No Distress, Calm Cardiovascular: Yes: Regular Rate and Rhythm Respiratory: Yes: Regular, CTA Bilaterally Gastrointestinal: Yes: Normal Bowel Sounds, Soft, Tenderness Musculoskeletal: Yes: WNL Extremities: Yes: WNL Neurological: Yes: Alert, Oriented Psychiatric: Yes: Alert, Oriented Labs: CBC, BMP 04/27/18 07:00 04/27/18 07:00 INR, PTT INR 1.09 (0.83-1.09) 04/26/18 10:17 Assessment/Plan 48 yo F w/ PMH seizures, hysterectomy for DUB / right oopherctomy for cyst, left ovarian cyst, p/w worsening left-sided flank pain radiating to left side abdomen down L leg x10d associated w/ brown urine, nausea, polyuria/urgency, and 1 episode of diarrhea. UTI Hematuria - L-adenexal mass with fat stranding seizures ureteritis ac renal failure leukocytosis creatinine has normalized plan will change abx to ceftriaxone await for final plan if dirrhoea sens for cdiff rest as per the team
[2018-04-28] MEDS ORDERED: cefTRIAXone SODIUM 1 GM VIAL ONE (16:07)
[2018-04-28] MEDS: CEFTRIAXONE 1 GM in DEXTROSE 5%-WATER - 50 ML IVPB SCH (16:09)
--- NOTE | 2018-04-28 18:20 | PN ---
Teaching Attending Note Name of Resident: Casey Max ATTENDING PHYSICIAN STATEMENT I saw and evaluated the patient. I reviewed the resident's note and discussed the case with the resident. I agree with the resident's findings and plan as documented. SUBJECTIVE: OBJECTIVE: Vital Signs Period Temp Pulse Resp BP Sys/Davis Pulse Ox Last 24 Hr 98.1 F-99 F 64-82 18-20 98-123/53-70 96-96 Current Medications Generic Name Dose Route Start Last Admin Trade Name Freq PRN Reason Stop Dose Admin Enoxaparin Sodium 40 mg 04/27/18 10:00 04/28/18 09:49 Lovenox - SQ 40 mg DAILY RENATO Administration Sodium Chloride 1,000 mls @ 125 mls/hr 04/26/18 06:46 04/28/18 06:12 Normal Saline - IV 125 mls/hr ASDIR RENATO Administration Ceftriaxone Sodium 1 gm/ 50 mls @ 100 mls/hr 04/28/18 15:45 04/28/18 16:09 Dextrose IVPB 100 mls/hr DAILY RENATO Administration Protocol Levetiracetam 1,000 mg 04/26/18 10:00 04/28/18 09:49 Keppra - PO 1,000 mg BID RENATO Administration Ondansetron HCl 4 mg 04/26/18 16:04 04/26/18 21:46 Zofran Injection IVPUSH 4 mg Q6H PRN Administration NAUSEA Propranolol HCl 20 mg 04/27/18 16:15 04/28/18 09:49 Inderal - PO 20 mg DAILY RENATO Administration ASSESSMENT AND PLAN:
[2018-04-28] MEDS ORDERED: KETOROLAC TROMETHAMINE 30 MG/1 ML VIAL IVPUSH ONE (21:32)
[2018-04-29] MEDS ORDERED: cefTRIAXone SODIUM 1 GM VIAL ONE (10:30)
[2018-04-29] MEDS ORDERED: PT OWN MED DRAWER 7, Y5N ONE (10:30)
[2018-04-29] MEDS ORDERED: DEXTROSE 5%-WATER - 50 ML IVPB ONE (10:31)
[2018-04-29] MEDS: CEFTRIAXONE 1 GM in DEXTROSE 5%-WATER - 50 ML IVPB SCH (10:33)
[2018-04-29] MEDS: levETIRAcetam 500 MG TABLET (FP) PO SCH (10:33)
[2018-04-29] MEDS: ENOXAPARIN NA (PORCINE) 40 MG/0.4 ML DISP.SYRIN SQ SCH (10:34)
[2018-04-29] MEDS: SODIUM CHLORIDE 1,000 ML IV SCH (10:36)
--- NOTE | 2018-04-29 12:25 | PN ---
Progress Note, Physician History of Present Illness: stable no new issues pain improving - Current Medication List Current Medications: Active Medications Enoxaparin Sodium (Lovenox -) 40 mg SQ DAILY [facility] Last Admin: 04/29/18 10:34 Dose: 40 mg Sodium Chloride (Normal Saline -) 1,000 mls @ 125 mls/hr IV ASDIR RENATO Last Admin: 04/29/18 10:36 Dose: 125 mls/hr Ceftriaxone Sodium 1 gm/ (Dextrose) 50 mls @ 100 mls/hr IVPB DAILY [facility]; Protocol Last Admin: 04/29/18 10:33 Dose: 100 mls/hr Levetiracetam (Keppra -) 1,000 mg PO BID [facility] Last Admin: 04/29/18 10:33 Dose: 1,000 mg Ondansetron HCl (Zofran Injection) 4 mg IVPUSH Q6H PRN PRN Reason: NAUSEA Last Admin: 04/26/18 21:46 Dose: 4 mg Propranolol HCl (Inderal -) 20 mg PO DAILY [facility] Last Admin: 04/29/18 10:34 Dose: 20 mg - Objective Vital Signs: Vital Signs Temperature 98.1 F 04/29/18 09:00 Pulse Rate 70 04/29/18 09:00 Respiratory Rate 20 04/29/18 09:00 Blood Pressure 104/57 L 04/29/18 09:00 O2 Sat by Pulse Oximetry (%) 96 04/29/18 09:00 Constitutional: Yes: No Distress, Calm Cardiovascular: Yes: Regular Rate and Rhythm Respiratory: Yes: Regular, CTA Bilaterally Gastrointestinal: Yes: Normal Bowel Sounds, Soft Musculoskeletal: Yes: WNL Extremities: Yes: WNL Neurological: Yes: Alert, Oriented Psychiatric: Yes: Alert, Oriented Labs: CBC, BMP 04/27/18 07:00 04/27/18 07:00 INR, PTT INR 1.09 (0.83-1.09) 04/26/18 10:17 Assessment/Plan 48 yo F w/ PMH seizures, hysterectomy for DUB / right oopherctomy for cyst, left ovarian cyst, p/w worsening left-sided flank pain radiating to left side abdomen down L leg x10d associated w/ brown urine, nausea, polyuria/urgency, and 1 episode of diarrhea. UTI Hematuria - L-adenexal mass with fat stranding seizures ureteritis ac renal failure leukocytosis plan continue abx patient improving will d/w the team rest as per the eam
--- NOTE | 2018-04-29 12:59 | PN ---
Teaching Attending Note Name of Resident: Casey Max ATTENDING PHYSICIAN STATEMENT I saw and evaluated the patient. I reviewed the resident's note and discussed the case with the resident. I agree with the resident's findings and plan as documented. SUBJECTIVE: OBJECTIVE: Vital Signs Period Temp Pulse Resp BP Sys/Davis Pulse Ox Last 24 Hr 98.1 F-99 F 62-82 18-20 98-123/53-71 96-96 Laboratory Results - last 24 hr 04/27/18 13:00 C. trachomatis (SHIMA) Negative N. gonorrhoeae (SHIMA) Negative Current Medications Generic Name Dose Route Start Last Admin Trade Name Freq PRN Reason Stop Dose Admin Enoxaparin Sodium 40 mg 04/27/18 10:00 04/29/18 10:34 Lovenox - SQ 40 mg DAILY RENATO Administration Sodium Chloride 1,000 mls @ 125 mls/hr 04/26/18 06:46 04/29/18 10:36 Normal Saline - IV 125 mls/hr ASDIR RENATO Administration Ceftriaxone Sodium 1 gm/ 50 mls @ 100 mls/hr 04/28/18 15:45 04/29/18 10:33 Dextrose IVPB 100 mls/hr DAILY RENATO Administration Protocol Levetiracetam 1,000 mg 04/26/18 10:00 04/29/18 10:33 Keppra - PO 1,000 mg BID RENATO Administration Ondansetron HCl 4 mg 04/26/18 16:04 04/26/18 21:46 Zofran Injection IVPUSH 4 mg Q6H PRN Administration NAUSEA Propranolol HCl 20 mg 04/27/18 16:15 04/29/18 10:34 Inderal - PO 20 mg DAILY RENATO Administration ASSESSMENT AND PLAN:
[2018-04-29 14:16] VITALS: TEMP 97.9
--- NOTE | 2018-04-29 16:50 | DS ---
Physical Exam: SUBJECTIVE: Patient seen and examined this AM. She states that her pain is much improved. Discussed with patient the possibility of going home and she was very excited about possibly being discharged today. OBJECTIVE: Vital Signs Period Temp Pulse Resp BP Sys/Davis Pulse Ox Last 24 Hr 97.9 F-98.1 F 62-76 18-20 102-105/57-71 96-96 PHYSICAL EXAM GENERAL: A&O, no acute distress HEAD: Normocephalic, atraumatic. EYES: PERRL, no scleral icterus EARS, NOSE, THROAT: oropharynx clear without exudates. Moist mucous membranes. NECK: supple without lymphadenopathy LUNGS: CTA b/l, no crackles or wheezes HEART: Regular rate and rhythm, normal S1 and S2 without murmur ABDOMEN: Soft, nontender to palpation, normoactive bowel sounds MUSCULOSKELETAL: still with some Left sided CVA tenderness though improved EXTREMITIES: 2+ pulses, warm, well-perfused. No peripheral edema. NEUROLOGICAL: Cranial nerves II-XII grossly intact. Normal speech. PSYCHIATRIC: Cooperative. Good eye contact. Appropriate mood and affect. SKIN: Warm, dry, no rashes or lesions noted LABS Laboratory Results - last 24 hr 04/27/18 13:00 C. trachomatis ([facility]IM[facility]) Negative N. gonorrhoeae ([facility]IMA) Negative HOSPITAL COURSE: Date of Admission:04/26/18 Date of Discharge: 04/29/18 HPI on Admission: 48 yo F w/ PMH seizures, hysterectomy for DUB / right oopherctomy for cyst, left ovarian cyst, p/w worsening left-sided flank pain radiating to left side abdomen down L leg x10d associated w/ brown urine, nausea, polyuria/urgency, and 1 episode of diarrhea. Patient reports that for the past 3 days she's been having consistent pain to the left side/flank, dysuria, frequency of urination, chills. Patient has been taking Motrin at home with no relief in pain. Of note, has a history of R-ovarian cysts that resulted in a R-oopherectomy back in [place]; the L-side was known to have cysts at that time but operative management was deferred. Denies fevers, cp ,NAVARRETE, vomit, hematuria Hospital Course: CT revealed mass like structure around left ovary, on TVUS appeared as follicles with some debri. Given Zosyn initially for possible abscess vs pyelonephritis. Seen by Enroute Controller and Urology who both agreed with pyelonephritis. Cultures grew E. coli pittman sensitive. She was converted to ceftriaxone. She clinically improved quickly and was deemed medically safe for discharge with total 10 day course of abx (d/c on Keflex) and close follow up with primary care physician and gynecology. Minutes to complete discharge: 35 Discharge Summary Reason For Visit: ACUTE LT FLANK PAIN, LT TUBO-OVARIAN ABSCELL INTRA Current Active Problems Acute left flank pain (Acute) Intractable abdominal pain (Acute) Left tubo-ovarian abscess (Acute) Pyelonephritis (Acute) Condition: Good - Instructions Diet, Activity, Other Instructions: You were admitted with a Urinary tract infection that likely spread up to your kidney which was causing you a lot of pain. On your initial imaging there was some concern for a mass or an abscess, but further imaging and lab work was not concerning. It is likely you have some ovarian follicles that are not emergently concerning at this time. Your infection improved with antibiotics and you are medically safe to go home today. You should take Keflex (antibiotic) for 7 more days. You should take one tablet in the morning and one at night. You can take a probiotic prior to starting the antibiotic and daily to help prevent any diarrhea that may be caused by the antibiotic. You should otherwise take all of your home meds as they are prescribed. You should follow up with your primary doctor within 1 week of discharge. You should follow up with a electronic warfare technician within 2 weeks of discharge. If you have high fevers, severe pain, or any other concerning symptoms, you should be seen by your doctor or return to the emergency department. Referrals: Burt Mas MD [Primary Care Provider] - Alondra Felipe MD [Staff Physician] - Disposition: HOME - Home Medications Comprehensive Discharge Medication List: Ambulatory Orders Levetiracetam [Keppra] 1,000 mg PO BID 03/17/15 Propranolol HCl 20 mg PO DAILY 04/27/18 Cephalexin Monohydrate [Keflex -] 500 mg PO BID #7 capsule 04/29/18 This patient is new to me today: No Emergency Visit: Yes ED Registration Date: 04/26/18 Care time: The patient presented to the Emergency Department on the above date and was hospitalized for further evaluation of their emergent condition. Critical Care patient: No - Discharge Referral Referred to [facility] Med [facility] No
[2018-04-29 17:37] VITALS: BP 105/62; PULSE 59
--- NOTE | 2018-06-02 08:01 | EKG ---
Test Reason : Blood Pressure : / mmHG Vent. Rate : 084 BPM Atrial Rate : 084 BPM P-R Int : 174 ms QRS Dur : 078 ms QT Int : 376 ms P-R-T Axes : 054 072 050 degrees QTc Int : 444 ms NORMAL SINUS RHYTHM NORMAL ECG WHEN COMPARED WITH ECG OF 26-APR-2018 07:19, NO SIGNIFICANT CHANGE WAS FOUND Confirmed by VIRGINIA GANN MD ([id number]) on 04/27/2018 1:07:33 PM Also confirmed by VIRGINIA GANN MD ([id number]), industrial editor IVÁN BECKETT ([id number]) on 06/02/2018 8:00:39 AM Referred By: Bianca CARDENAS Confirmed By:VIRGINIA GANN MD
== END 2018-04-29 17:55 | disposition home or self-care (01) | DRG 463 ==
LOC: JER 23:49 → JERBED 04-26 04:45 → J8W 04-26 08:20
PROVIDERS: ADMIT Internal Medicine; ATTEND Internal Medicine
DX: N30.01 Acute cystitis with hematuria (principal); N70.92 Oophoritis, unspecified; D72.829 Elevated white blood cell count, unspecified; N13.6 Pyonephrosis; G40.909 Epilepsy, unspecified, not intractable, without status epilepticus; N17.9 Acute kidney failure, unspecified; N83.202 Unspecified ovarian cyst, left side; G43.909 Migraine, unspecified, not intractable, without status migrainosus
CPT/HCPCS: 36415; 71046-TC-FY; 74176; 76830-TC; 80048; 80053; 81003; 81015; 83735; 84100; 84703; 85025; 85610; 85730; 86301; 86304; 86593; 87040; 87086; 87186; 87491; 87591; 93005; 93010; 99282-25; J0131; J7030

== ENCOUNTER 2018-05-07 17:45 | Emergency (ER) | payer OTHER ==
[2018-05-07 17:59] VITALS: BP 114/79; PULSE 79; TEMP 97.8; BMI 26.0
--- NOTE | 2018-05-07 18:10 | PDOC ---
Attending Attestation - HPI HPI: 05/07/18 18:36 The patient is a 48 year old female with a past medical history of ovarian abscess here today for evaluation of abdominal pain. The patient reports coming to [place] on 04/26/18 and was diagnosed with an ovarian cyst that caused hydronephrosis and pyelonephritis. She reports left lower quadrant abdominal pain today. Patient denies headache, lightheadedness. Denies fever, chills. Denies chest pain, shortness of breath. Denies nausea, vomiting, diarrhea. Allergies: iodinated contrast, oral and IV dye PCP: none reported - Physicial Exam PE: 05/07/18 18:37 Constitutional: Awake, alert, oriented. No acute distress. Head: Normocephalic. Atraumatic Eyes: PERRL. EOMI. Conjunctivae are not pale. ENT: Mucous membranes are moist and intact. Posterior pharynx without exudates or erythema. Uvula midline. Neck: Supple. Full ROM. No lymphadenopathy. Cardiovascular: Regular rate. Regular rhythm. S1, S2 regular. Distal pulses are 2+ and symmetric. Pulmonary/Chest: No evidence of respiratory distress. Clear to auscultation bilaterally No wheezing, rales or rhonchi. Abdominal: +left lower quadrant tenderness. +left lower quadrant pain reproducible when right lower quadrant is palpated. Soft and non-distended. No rebound, guarding or rigidity. No organomegaly. No palpable masses. Good bowel sounds. Back: +left CVA tenderness. Musculoskeletal: No edema. No cyanosis. No clubbing. Full range of motion in all extremities. No calf tenderness. Radial/pedal pulses are intact and 2+ bilaterally Skin: Skin is warm and dry. No petechiae. No purpura. Neurological: Alert and oriented to person, place, and time. Cranial nerves II -XII are grossly intact. Normal speech. Strength is grossly symmetric. No sensory deficits. Psychiatric: Good eye contact. Normal interaction, affect and behavior. - Medical Decision Making 05/07/18 18:37 Documentation prepared by MARCO Shah, acting as medical device for Stella Sawant DO. <Pierce Carolina - Last Filed: 05/07/18 18:36> - Resident Resident Name: Valdo Srinivasan - ED Attending Attestation I have performed the following: I have examined & evaluated the patient, The case was reviewed & discussed with the resident, I agree w/resident's findings & plan, Exceptions are as noted - Medical Decision Making 05/07/18 18:10 I, Dr. Stella Sawant, DO, attest that this document has been prepared under my direction and personally reviewed by me in its entirety. I further attest, that it accurately reflects all work, treatment, procedures and medical decision -making performed by me. 05/07/18 18:32 a/p: 48yo female with recent L TOA and L pyelo/hydro from the TOA presents for persistent and worsening pain -LLQ, L CVA ttp, concern for persistent TOA/Pyelo -saw Dr. Katz on - repeated UA, but doesn't have results -pain worsens throughout the day -acutely ttp LLQ and L cva -will send labs, urine culture -will obtain ct abd/pelvis -will give pain control, nausea control -will monitor and reassess -Dr. Muir was urology, Dr. Felipe was PROCESS SERVER 05/07/18 18:59 pt will be signed out to the oncoming ED physician pending labs and imaging L adnexal ttp on exam <Stella Sawant - Last Filed: 05/07/18 18:59>
--- NOTE | 2018-05-07 18:11 | PDOC ---
History of Present Illness - General Chief Complaint: Back Pain Stated Complaint: PAIN Time Seen by Provider: 05/07/18 18:07 - History of Present Illness Initial Comments: 05/07/18 18:10 48 yo F w/ PMH seizures, hysterectomy for DUB / right oopherctomy for cyst, left ovarian cyst, p/w worsening left-sided flank pain radiating to left side abdomen down L leg x10d associated w/ brown urine, nausea, polyuria/urgency, and 1 episode of diarrhea. Patient reports that for the past 3 days she's been having consistent pain to the left side/flank, dysuria, frequency of urination, chills. Patient has been taking Motrin at home with no relief in pain. Of note, has a history of R-ovarian cysts that resulted in a R-oopherectomy back in [place]; the L-side was known to have cysts at that time but operative management was deferred. Denies fevers, cp ,NAVARRETE, vomit, hematuria Hospital Course: CT revealed mass like structure around left ovary, on TVUS appeared as follicles with some debri. Given Zosyn initially for possible abscess vs pyelonephritis. Seen by [facility] who both agreed with pyelonephritis. Cultures grew E. coli pittman sensitive. She was converted to ceftriaxone. She clinically improved quickly and was deemed medically safe for discharge with total 10 day course of abx (d/c on Keflex) and close follow up with primary care physician and gynecology. Past History - Past Medical History Allergies/Adverse Reactions: Allergies Allergy/AdvReac Type Severity Reaction Status Date / Time Iodinated Contrast- Oral and Allergy Hives Verified 05/07/18 17:54 IV Dye [Iodinated Contrast Media - IV Dye] Home Medications: Ambulatory Orders Levetiracetam [Keppra] 1,000 mg PO BID 03/17/15 Propranolol HCl 20 mg PO DAILY 04/27/18 Cephalexin Monohydrate [Keflex -] 500 mg PO BID #14 capsule 04/29/18 Anemia: No Asthma: No Cancer: No Cardiac Disorders: No CVA: No COPD: No CHF: No DVT: No Dementia: No Diabetes: No GI Disorders: No Disorders: No HTN: No Hypercholesterolemia: No Liver Disease: No Seizures: Yes (EPILEPSY) Thyroid Disease: No - Surgical History Abdominal Surgery: No Appendectomy: Yes Cardiac Surgery: No Cholecystectomy: No Lung Surgery: No Neurologic Surgery: No Orthopedic Surgery: No - Immunization History Immunization Up to Date: Yes - Suicide/Smoking/Psychosocial Hx Smoking Status: No Smoking History: Never smoked Have you smoked in the past 12 months: No Number of Cigarettes Smoked Daily: 0 Hx Alcohol Use: No Drug/Substance Use Hx: No Substance Use Type: None Hx Substance Use Treatment: No *Physical Exam - Vital Signs Last Vital Signs Temp Pulse Resp BP Pulse Ox 97.8 F 79 17 114/79 98 05/07/18 17:54 05/07/18 17:54 05/07/18 17:54 05/07/18 17:54 05/07/18 17:54 Moderate Sedation - Procedure Monitoring Vital Signs: Procedure Monitoring Vital Signs Temperature 97.8 F 05/07/18 17:54 Pulse Rate 79 05/07/18 17:54 Respiratory Rate 17 05/07/18 17:54 Blood Pressure 114/79 05/07/18 17:54 O2 Sat by Pulse Oximetry (%) 98 05/07/18 17:54
--- NOTE | 2018-05-07 18:30 | PDOC ---
History of Present Illness - General Chief Complaint: Back Pain Stated Complaint: PAIN Time Seen by Provider: 05/07/18 18:07 - History of Present Illness Initial Comments: 48 year old female with PMH of seizures, hysterectomy for DUB, right oopherctomy for a large cyst, left ovarian cyst, presenting with left sided flank pain for the past few weeks and urinary symptoms. Patient was recently discharged from [facility] 8 days prior for a large left ovarian cyst and pyelonephritis for which she was given IV abx including ceftriaxone then discharged with remaining 10 dya course of keflex. She saw her PCP two days prior and he repeated a urinalysis of which she hasn't yet received the results. Her pain a has overall improved from when she was first admitted a few weeks ago but still bothersome. The pain is worse with movement and she hasn't tried Tylenol or Motrin. She does have some mild nausea but no vomiting, diarrhea, chest pain, SOB, fevers, or other symptoms. States that she finished her abx course a few days prior. She does have [facility] follow up appointment in a few weeks. Past History - Past Medical History Allergies/Adverse Reactions: Allergies Allergy/AdvReac Type Severity Reaction Status Date / Time Iodinated Contrast- Oral and Allergy Hives Verified 05/07/18 17:54 IV Dye [Iodinated Contrast Media - IV Dye] Home Medications: Ambulatory Orders Levetiracetam [Keppra] 1,000 mg PO BID 03/17/15 Propranolol HCl 20 mg PO DAILY 04/27/18 Anemia: No Asthma: No Cancer: No Cardiac Disorders: No CVA: No COPD: No CHF: No DVT: No Dementia: No Diabetes: No GI Disorders: No Disorders: No HTN: No Hypercholesterolemia: No Liver Disease: No Seizures: Yes (EPILEPSY) Thyroid Disease: No - Surgical History Abdominal Surgery: No Appendectomy: Yes Cardiac Surgery: No Cholecystectomy: No Lung Surgery: No Neurologic Surgery: No Orthopedic Surgery: No - Immunization History Immunization Up to Date: Yes - Suicide/Smoking/Psychosocial Hx Smoking Status: No Smoking History: Never smoked Have you smoked in the past 12 months: No Number of Cigarettes Smoked Daily: 0 Hx Alcohol Use: No Drug/Substance Use Hx: No Substance Use Type: None Hx Substance Use Treatment: No Review of Systems - Review of Systems Constitutional: Yes: Chills. No: Diaphoresis, Fever, Loss of Appetite HEENTM: No: Blurred Vision, Tearing, Recent change in vision Respiratory: No: Cough, Orthopnea, Shortness of Breath, SOB with Exertion Cardiac (ROS): No: Chest Pain, Edema, Irregular Heart Rate, Lightheadedness ABD/GI: Yes: Nausea. No: Constipated, Poor Appetite, Poor Fluid Intake, Vomiting : No: Dysuria, Discharge, Frequency Musculoskeletal: No: Back Pain, Joint Pain Integumentary: No: Bruising, Pallor, Rash Neurological: No: Headache, Numbness, Paresthesia, Weakness Psychiatric: No: Anxiety, Depression Hematologic/Lymphatic: No: Anemia, Blood Clots, Easy Bleeding *Physical Exam - Vital Signs Last Vital Signs Temp Pulse Resp BP Pulse Ox 97.8 F 79 17 114/79 98 05/07/18 17:54 05/07/18 17:54 05/07/18 17:54 05/07/18 17:54 05/07/18 17:54 - Physical Exam General Appearance: Yes: Nourished, Appropriately Dressed. No: Apparent Distress HEENT: positive: EOMI, GERONIMO, Normal ENT Inspection, Normal Voice Neck: positive: Trachea midline, Normal Thyroid, Supple. negative: Tender, Rigid Respiratory/Chest: positive: Lungs Clear, Normal Breath Sounds. negative: Chest Tender, Respiratory Distress, Accessory Muscle Use Cardiovascular: positive: Regular Rhythm, Regular Rate Female Pelvic Exam: positive: normal external exam. negative: normal adnexa Gastrointestinal/Abdominal: positive: Normal Bowel Sounds, Tender (let lower quadrant tenderness), Flat, Soft Musculoskeletal: positive: Normal Inspection. negative: CVA Tenderness Extremity: positive: Normal Capillary Refill, Normal Inspection, Normal Range of Motion. negative: Tender Integumentary: positive: Normal Color, Dry, Warm Neurologic: positive: Fully Oriented, Alert, Normal Mood/Affect, Normal Response , Motor Strength 5/5 Moderate Sedation - Procedure Monitoring Vital Signs: Procedure Monitoring Vital Signs Temperature 97.8 F 05/07/18 17:54 Pulse Rate 79 05/07/18 17:54 Respiratory Rate 17 05/07/18 17:54 Blood Pressure 114/79 05/07/18 17:54 O2 Sat by Pulse Oximetry (%) 98 05/07/18 17:54 ED Treatment Course - LABORATORY CBC & Chemistry Diagram: 05/07/18 18:36 05/07/18 18:36 Medical Decision Making - Medical Decision Making 48 year old with known left ovarian cyst and recent admission for pyelonephritis for which she has received an appropriate dose of antibiotics presenting with left sided lower abdominal pain. Pelvic demonstrating left adnexal tenderness and fullness. Patient pending abdomen/ pelvis dry and tvus + labs. Want to evaluate size of cyst and re-evaluate left kidney for pyelo/ hydro. Signed out to Dr. Kebede pending these studies. 05/07/18 18:55 *DC/Admit/Observation/Transfer Diagnosis at time of Disposition: Abdominal pain Qualifiers: Abdominal location: left lower quadrant Qualified Code(s): R10.32 - Left lower quadrant pain - Discharge Dispostion Condition at time of disposition: Stable - Referrals - Patient Instructions - Post Discharge Activity
[2018-05-07] MEDS ORDERED: ACETAMINOPHEN 1000 MG/100 ML VIAL (NON FORMULARY) IVPB ONE (18:31)
[2018-05-07] MEDS ORDERED: KETOROLAC TROMETHAMINE 15 MG/ML VIAL IVPUSH ONE (18:31)
[2018-05-07] MEDS ORDERED: SODIUM CHLORIDE 0.9% 1000 ML INFUS.BAG IV ONE (18:31)
[2018-05-07] MEDS ORDERED: METOCLOPRAMIDE HCL INJECTION 10 MG/2 ML VIAL IVPUSH ONE (18:31)
[2018-05-07] MEDS ORDERED: METOCLOPRAMIDE HCL INJECTION 10 MG/2 ML VIAL ONE (18:39)
[2018-05-07] MEDS ORDERED: KETOROLAC TROMETHAMINE 60 MG/2 ML VIAL ONE (18:39)
[2018-05-07] MEDS ORDERED: ACETAMINOPHEN INJECTION 100 ML IVPB ONE (18:39)
[2018-05-07 18:48] LABS: BASO % 1.1 % (0-2.0); EOS % 1.3 % (0-4.5); HEMOGLOBIN 13.2 GM/dL (10.7-15.3); LYMPH % 43.9 % (8-40); MCH 32.5 pg (25.7-33.7); MCHC 34.8 g/dl (32.0-36.0); MEAN CELL VOLUME 93.5 fl (80-96); MEAN PLT VOLUME 7.4 fl (7.5-11.1); MONO % 8.2 % (3.8-10.2); NEUT % 45.5 % (42.8-82.8); PLATELET COUNT 278 K/MM3 (134-434); RBC 4.06 M/mm3 (3.60-5.2); RDW 12.2 % (11.6-15.6)
[2018-05-07 19:12] LABS: URINE APPEARANCE CLEAR; URINE BILIRUBIN NEGATIVE (<2.0 mg/dL); URINE COLOR LTYELLOW; URINE GLUCOSE (UA) NEGATIVE (NEGATIVE); URINE KETONE NEGATIVE (NEGATIVE); URINE LEUK ESTERASE NEGATIVE (NEGATIVE); URINE NITRITE NEGATIVE (NEGATIVE); URINE PROTEIN NEGATIVE (NEGATIVE); URINE UROBILINOGEN NEGATIVE mg/dL (0.2-1.0)
--- NOTE | 2018-05-07 19:18 | PDOC ---
*Physical Exam - Vital Signs Last Vital Signs Temp Pulse Resp BP Pulse Ox 97.8 F 79 17 114/79 98 05/07/18 17:54 05/07/18 17:54 05/07/18 17:54 05/07/18 17:54 05/07/18 17:54 ED Treatment Course - LABORATORY CBC & Chemistry Diagram: 05/07/18 18:36 05/07/18 18:36 - ADDITIONAL ORDERS Additional order review: Laboratory Results 05/07/18 18:30 Urine Color Ltyellow Urine Appearance Clear Urine pH 8.0 D Ur Specific [place] 1.017 Urine Protein Negative Urine Glucose (UA) Negative Urine Ketones Negative Urine Blood Negative Urine Nitrite Negative Urine Bilirubin Negative Urine Urobilinogen Negative Ur Leukocyte Esterase Negative 05/07/18 18:36 RBC 4.06 MCV 93.5 MCHC 34.8 RDW 12.2 MPV 7.4 L Neutrophils % 45.5 Lymphocytes % 43.9 H Monocytes % 8.2 Eosinophils % 1.3 Basophils % 1.1 - Medications Given in the ED: ED Medications Discontinued Medications Generic Name Dose Route Start Last Admin Trade Name Kong PRN Reason Stop Dose Admin Acetaminophen 1,000 mg 05/07/18 18:31 05/07/18 18:49 Ofirmev Injection - IVPB 05/07/18 18:32 1,000 mg ONCE ONE Administration Ketorolac Tromethamine 15 mg 05/07/18 18:31 05/07/18 18:48 Toradol Injection - IVPUSH 05/07/18 18:32 15 mg ONCE ONE Administration Metoclopramide HCl 10 mg 05/07/18 18:31 05/07/18 19:05 Reglan Injection - IVPUSH 05/07/18 18:32 10 mg ONCE ONE Administration Sodium Chloride 1,000 ml 05/07/18 18:31 05/07/18 18:48 Normal Saline - IV 05/07/18 18:32 1,000 ml ONCE ONE Administration Medical Decision Making - Medical Decision Making 05/07/18 19:16 I picked up patient on signout. She has a normal WBC/CBC as well as UA. Chem pending. Pt is awaiting pelvic sono today as well as a non-con CT scan of the abd pelvis. She complains of pelvic pain that remains despite her treatment for pyelonephritis in our hospital recently. She is afebrile. cancerous markers as well as RPR GC that were sent in the last visit were also normal. All of her VSS are normal 05/07/18 20:45 Patient Name: ANURAG VALVERDE THIS IS A PRELIMINARY REPORT FROM [facility] DATE OF SERVICE: 2018-05-07 19:20:23 IMAGES: 31 EXAM: TRANSVAGINAL ULTRASOUND US HISTORY: 48 year-old female with left-sided ovarian cyst/pain. COMPARISON: Noncontrast CT scan abdomen and pelvis a April 2018. Findings: Left ovary measures 4.0 x 1.9 x 3.3 cm. There is a left ovarian cyst measuring 1.4 x 1.1 x 1.4 cm. Color flow and Doppler arterial/venous signal to the left ovary demonstrated. No free fluid seen adjacent to the left ovary or left adnexa. Minimal debris suggested within the left ovarian cyst. Right ovary not visualized. Uterus not visualized. Impression: 1.. Uterus and right ovary not visualized; consistent with patient's surgical history. 2.. 1.4 x 1.1 x 1.4 cm minimally complex cyst, left ovary. No findings to suggest ovarian torsion. 05/07/18 20:46 Patient Name: ANURAG VALVERDE History: 48 year old female with ovarian cyst Comparison: CT scan abdomen and pelvis April 26, 2018. Pelvic ultrasound May 07, 2018. Procedure: CT scan abdomen and pelvis; dated May 07, 2018 . Axial images obtained followed by coronal and sagittal reconstructions. Study performed unenhanced. Findings: The unenhanced liver, spleen, pancreas, and adrenal glands are unremarkable. Gallbladder and gallbladder fossa normal in appearance. No intrarenal calculi identified. No evidence of right or left-sided hydronephrosis, hydroureter, ureteral or bladder calculi. Again noted exophytic cyst upper pole right kidney. Rectum and perirectal space unremarkable. No inflammatory changes of the large or small bowel identified. Terminal ileum normal in appearance. Appendix not visualized. Uterus and right ovary not visualized, consistent with patient's surgical history. Left ovary similar in size to previous exam however inflammatory changes previously noted adjacent to the left ovary not visualized with the current exam. No free intraperitoneal air or fluid identified. No abdominal wall defects noted. Abdominal aorta/branch vessels/IVC normal configuration. Impression: Inflammatory changes previously noted adjacent left ovary not identified with the current examination. Please see pelvic ultrasound report from same date for further evaluation of the left ovary. No evidence of GI or tract obstruction or inflammatory change. Terminal ileum normal in appearance. Appendix not visualized. Pt's imflammation is improved. HER pain is 3/10. She will be given a dose of toradol She will follow with Dr. Robbins She understands to return for intractable pain; I discussed ovarian torsion with her; ovarian fluid filled cysts and hemorrhagic cysts. She understands that she should return for feeling faint or lightheaded. 05/07/18 21:54 She will be discharged home with her son. *DC/Admit/Observation/Transfer Diagnosis at time of Disposition: Abdominal pain Qualifiers: Abdominal location: left lower quadrant Qualified Code(s): R10.32 - Left lower quadrant pain - Discharge Dispostion Disposition: HOME Condition at time of disposition: Fair - Referrals - Patient Instructions Printed Discharge Instructions: DI for Low Back Pain Additional Instructions: You were evaluated today for your abdominal pain. A transvaginal ultrasound and your cat scan showed no concerning findings. At this time you are safe for discharge home. You can take Tylenol (up to 4000 mg daily) for your pain. Follow up with Dr. Osorio as previously scheduled as well as your primary care doctor within 1 week. We are providing you with copies of your cat scans, please take these with you to your follow-up appointments. Your care is not complete until you are evaluated by heart surgeon and your primary care doctor. Your gonorrhea and chlamydia test results are pending. You can call the hospital at the number provided in your discharge instructions for the results. Return to the Emergency Department for any new/worsening/concerning symptoms. - Post Discharge Activity
[2018-05-07 19:21] LABS: ALBUMIN 4.1 g/dl (3.4-5.0); ALK PHOS 75 U/L (45-117); ANION GAP 6 MMOL/L (8-16); BILIRUBIN,TOTAL 0.7 mg/dL (0.2-1); BLOOD UREA NITROGEN 14 mg/dL (7-18); CALCIUM 8.9 mg/dL (8.5-10.1); CHLORIDE 106 mmol/L (98-107); CO2 29 mmol/L (21-32); CREATININE 0.9 mg/dL (0.55-1.3); GLUCOSE,RANDOM 82 mg/dL (74-106); POTASSIUM 4.2 mmol/L (3.5-5.1); SGOT/AST 16 U/L (15-37); SGPT/ALT 47 U/L (13-61); SODIUM 142 mmol/L (136-145); TOT PROT 7.8 g/dl (6.4-8.2)
--- NOTE | 2018-05-07 19:45 | PDOC ---
*Physical Exam - Vital Signs Last Vital Signs Temp Pulse Resp BP Pulse Ox 97.8 F 79 17 114/79 98 05/07/18 17:54 05/07/18 17:54 05/07/18 17:54 05/07/18 17:54 05/07/18 17:54 - Physical Exam General Appearance: Yes: Nourished, Obese HEENT: positive: Normal Voice, Hearing Grossly Normal Neck: positive: Trachea midline, Supple Cardiovascular: positive: S1, S2 Gastrointestinal/Abdominal: positive: Soft. negative: Guarding, Rebound, Tenderness, Hernia, Mass Musculoskeletal: positive: CVA Tenderness (L). negative: CVA Tenderness (R) Extremity: positive: Normal Capillary Refill, Normal Inspection Integumentary: positive: Normal Color, Dry, Warm Neurologic: positive: Fully Oriented, Alert ED Treatment Course - LABORATORY CBC & Chemistry Diagram: 05/07/18 18:36 05/07/18 18:36 - ADDITIONAL ORDERS Additional order review: Laboratory Results 05/07/18 05/07/18 18:36 18:30 Sodium 142 Potassium 4.2 Chloride 106 Carbon Dioxide 29 Anion Gap 6 L BUN 14 Creatinine 0.9 Creat Clearance w eGFR > 60 Random Glucose 82 Calcium 8.9 Total Bilirubin 0.7 AST 16 ALT 47 Alkaline Phosphatase 75 Total Protein 7.8 Albumin 4.1 Urine Color Ltyellow Urine Appearance Clear Urine pH 8.0 D Ur Specific [place] 1.017 Urine Protein Negative Urine Glucose (UA) Negative Urine Ketones Negative Urine Blood Negative Urine Nitrite Negative Urine Bilirubin Negative Urine Urobilinogen Negative Ur Leukocyte Esterase Negative 05/07/18 18:36 RBC 4.06 MCV 93.5 MCHC 34.8 RDW 12.2 MPV 7.4 L Neutrophils % 45.5 Lymphocytes % 43.9 H Monocytes % 8.2 Eosinophils % 1.3 Basophils % 1.1 - Medications Given in the ED: ED Medications Discontinued Medications Generic Name Dose Route Start Last Admin Trade Name Freq PRN Reason Stop Dose Admin Acetaminophen 1,000 mg 05/07/18 18:31 05/07/18 18:49 Ofirmev Injection - IVPB 05/07/18 18:32 1,000 mg ONCE ONE Administration Ketorolac Tromethamine 15 mg 05/07/18 18:31 05/07/18 18:48 Toradol Injection - IVPUSH 01/19/19 18:32 15 mg ONCE ONE Administration Metoclopramide HCl 10 mg 05/07/18 18:31 05/07/18 19:05 Reglan Injection - IVPUSH 05/07/18 18:32 10 mg ONCE ONE Administration Sodium Chloride 1,000 ml 05/07/18 18:31 05/07/18 18:48 Normal Saline - IV 05/07/18 18:32 1,000 ml ONCE ONE Administration Medical Decision Making - Medical Decision Making 05/07/18 19:44 Patient signed out by Dr. Srinivasan (Resident) and Dr. Sawant (Attending) 48 year old female with L sided flank pain and polyuria/increased urgency. Patient is recently s/p evaluation at our facility for L ovarian cyst and pyelonephritis. Completing Keflex abx course. UA clean. Labs unremarkable. Patient allergic to IV contrast, abdominal CT and TVUS pending to evaluate for further renal pathology and cyst rupture. 05/07/18 20:21 TVUS shows minimally complex L ovarian cyst 1.4 x 1.1 x 1.4; no torsion, ovary measures 4.0 x1.9 x 3.3; uterus, R ovary not visualized c/w patient's previous hysterectomy + R sided oophorectomy. 05/07/18 20:[address] shows no L sided hydronephrosis, no ureter, bladder caluli; inflammatory changes on 04/26/18 scan noted to be improved Patient reassessed @ bedside, belly soft, L sided CVA tenderness. AT this time I suspect patient's pain is MSK less likely renal and no medical emergency. Will discharge home with PMD and [facility] follow-up 05/07/18 20:46 Patient states she has a follow-up appointment with her PMD, Dr. Reynaga in 2 days as well as appointment with Dr. Osorio. Patient given copies of CT scan, return precautions and instructions for supportive care. I discussed the physical exam findings, ancillary test results and final diagnoses with the patient. I answered all of the patient's questions. The patient was satisfied with the care received and felt comfortable with the discharge plan and treatment plan. The patient will return to the Emergency Department with any new, persistent or worsening symptoms. *DC/Admit/Observation/Transfer Diagnosis at time of Disposition: Abdominal pain Qualifiers: Abdominal location: left lower quadrant Qualified Code(s): R10.32 - Left lower quadrant pain - Discharge Dispostion Disposition: HOME Condition at time of disposition: Fair Decision to Admit order: No - Referrals - Patient Instructions Printed Discharge Instructions: DI for Low Back Pain Additional Instructions: You were evaluated today for your abdominal pain. A transvaginal ultrasound and your cat scan showed no concerning findings. At this time you are safe for discharge home. You can take Tylenol (up to 4000 mg daily) for your pain. Follow up with Dr. Osorio as previously scheduled as well as your primary care doctor within 1 week. We are providing you with copies of your cat scans, please take these with you to your follow-up appointments. Your care is not complete until you are evaluated by visual merchandiser and your primary care doctor. Your gonorrhea and chlamydia test results are pending. You can call the hospital at the number provided in your discharge instructions for the results. Return to the Emergency Department for any new/worsening/concerning symptoms. - Post Discharge Activity
[2018-05-07] MEDS ORDERED: KETOROLAC TROMETHAMINE 30 MG/1 ML VIAL IVPUSH ONE (20:42)
[2018-05-07] MEDS ORDERED: KETOROLAC TROMETHAMINE 30 MG/1 ML VIAL ONE (20:47)
== END 2018-05-07 20:52 | disposition home or self-care (01) ==
LOC: JER 17:45
PROC: 3E033NZ Introduction of Analgesics, Hypnotics, Sedatives into Peripheral Vein, Percutaneous Approach (ICD-10-PCS; principal; 2018-05-07)
PROC: 3E0333Z Introduction of Anti-inflammatory into Peripheral Vein, Percutaneous Approach (ICD-10-PCS; 2018-05-07)
PROC: 3E033GC Introduction of Other Therapeutic Substance into Peripheral Vein, Percutaneous Approach (ICD-10-PCS; 2018-05-07)
DX: R10.32 Left lower quadrant pain (principal); N83.202 Unspecified ovarian cyst, left side
CPT/HCPCS: 36415; 74176-TC; 76830-TC; 80053; 81003; 85025; 86593; 87086; 87491; 87591; 99283-25; J0131; J7030

== ENCOUNTER 2018-10-05 11:22 | Emergency (ER) | payer OTHER | END 2018-10-05 20:34 | disposition home or self-care (01) | LOC: JER 11:22 ==

== ENCOUNTER 2018-10-06 14:32 | Inpatient (IN) | payer OTHER ==
[~2018-10-06 14:32] MED LIST: BUPIVACAINE HCL/PF (5 MG/ML) 30 ML VIAL IJ ONE
[2018-10-06 14:41] VITALS: BMI 27.3
--- NOTE | 2018-10-06 15:42 | PDOC ---
History of Present Illness - General Chief Complaint: Pain Stated Complaint: SENT BY PCP Time Seen by Provider: 10/06/18 15:42 - History of Present Illness Initial Comments: 10/06/18 15:42 Ms. Madrigal is a 48 yo female w/ pmh of epilepsy who presents for evaluation of 1 week of left lower quadrant pain. Patient was evaluated yesterday in ED w/ TVUS and Abd/Pelvic CT which revealed complex L ovarian cyst concerning for hemorrhagic cyst with f/u to LEGAL RECEPTIONIST. Patient re-presents to ER as LEGAL RECEPTIONIST directed her here for reported L ovary removal given size of cyst. Patient has no new complaints at this time. Allergies: Iodinated contrast - Oral and IV dye. Surgical History: Appendectomy PCP: Dr. Mas Past History - Past Medical History Allergies/Adverse Reactions: Allergies Allergy/AdvReac Type Severity Reaction Status Date / Time Iodinated Contrast- Oral and Allergy Hives Verified 10/06/18 14:41 IV Dye [Iodinated Contrast Media - IV Dye] Home Medications: Ambulatory Orders Levetiracetam [Keppra] 1,000 mg PO BID 03/17/15 Ibuprofen [Motrin -] 600 mg PO TID PRN #21 tablet 10/05/18 Anemia: No Asthma: No Cancer: No Cardiac Disorders: No CVA: No COPD: No CHF: No DVT: No Dementia: No Diabetes: No GI Disorders: No Disorders: No HTN: No Hypercholesterolemia: No Liver Disease: No Seizures: Yes (EPILEPSY) Thyroid Disease: No - Surgical History Abdominal Surgery: No Appendectomy: Yes Cardiac Surgery: No Cholecystectomy: No Lung Surgery: No Neurologic Surgery: No Orthopedic Surgery: No - Reproductive History Is Patient Now?: No - Immunization History Immunization Up to Date: Yes - Suicide/Smoking/Psychosocial Hx Smoking Status: No Smoking History: Never smoked Have you smoked in the past 12 months: No Number of Cigarettes Smoked Daily: 0 Information on smoking cessation initiated: No Hx Alcohol Use: No Drug/Substance Use Hx: No Substance Use Type: None Hx Substance Use Treatment: No Review of Systems - Review of Systems Comments:: 10/06/18 16:04 GENERAL/CONSTITUTIONAL: No fever or chills. No weakness. HEAD, EYES, EARS, NOSE AND THROAT: No change in vision. No ear pain or discharge. No sore throat. CARDIOVASCULAR: No chest pain or shortness of breath RESPIRATORY: No cough, wheezing, or hemoptysis. GASTROINTESTINAL: +LLQ pain as described. GENITOURINARY: No dysuria, frequency, or change in urination. MUSCULOSKELETAL: No joint or muscle swelling or pain. No neck or back pain. SKIN: No rash NEUROLOGIC: No headache, vertigo, loss of consciousness, or change in strength/ sensation. ENDOCRINE: No increased thirst. No abnormal weight change HEMATOLOGIC/LYMPHATIC: No anemia, easy bleeding, or history of blood clots. ALLERGIC/IMMUNOLOGIC: No hives or skin allergy. *Physical Exam - Vital Signs Last Vital Signs Temp Pulse Resp BP Pulse Ox 98.6 F 83 16 138/82 100 10/06/18 14:38 10/06/18 14:38 10/06/18 14:38 10/06/18 14:38 10/06/18 14:38 - Physical Exam Comments: 10/06/18 16:04 GENERAL: Awake, alert, and fully oriented, in no acute distress HEAD: No signs of trauma, normocephalic, atraumatic EYES: PERRLA, EOMI, sclera anicteric, conjunctiva clear ENT: Auricles normal inspection, hearing grossly normal, nares patent, oropharynx clear without exudates. Moist mucosa NECK: Normal ROM, supple, no lymphadenopathy, JVD, or masses LUNGS: No distress, speaks full sentences, clear to auscultation bilaterally HEART: Regular rate and rhythm, normal S1 and S2, no murmurs, rubs or gallops, peripheral pulses normal and equal bilaterally. ABDOMEN: +LLQ TTP. Soft, normoactive bowel sounds. No guarding, no rebound. No masses EXTREMITIES: Normal inspection, Normal range of motion, no edema. No clubbing or cyanosis. NEUROLOGICAL: Cranial nerves II through XII grossly intact. Normal speech, normal gait, no focal sensorimotor deficits SKIN: Warm, Dry, normal turgor, no rashes or lesions noted. Medical Decision Making - Medical Decision Making 10/06/18 16:29 Ms. Madrigal is a 48 yo female w/ pmh as described who presents for admission for same day L sided oophorectomy. Patient discussed with Dr. Ortega who will be performing procedure. Patient pre-op performed and admitted to hospital. Patient has not had anything PO since noon reportedly. *DC/Admit/Observation/Transfer Diagnosis at time of Disposition: Ovarian mass, left - Discharge Dispostion Condition at time of disposition: Fair Decision to Admit order: Yes - Referrals - Patient Instructions - Post Discharge Activity
[2018-10-06] MEDS ORDERED: PROPOFOL 20 ML ONE (15:49)
[2018-10-06] MEDS ORDERED: SUCCINYLCHOLINE CHLORIDE 200 MG/10 ML SYRINGE ONE (15:50)
[2018-10-06] MEDS ORDERED: ONDANSETRON 4 MG/2 ML VIAL IVPUSH ONE (16:05)
[2018-10-06] MEDS ORDERED: morphine CARPU-JECT 2 MG/1 ML DISP.SYRIN IVPUSH ONE (16:05)
--- NOTE | 2018-10-06 16:12 | PDOC ---
Attending Attestation - Resident Resident Name: Brenden Kelly - ED Attending Attestation I have performed the following: I have examined & evaluated the patient, The case was reviewed & discussed with the resident, I agree w/resident's findings & plan, Exceptions are as noted - HPI HPI: 10/06/18 16:07 48yo female with LLQ pain. Pt was seen in the ED last night and dx with L ovary mass/cyst. Pt followed up with DR. Laws today and sent back to the ER for OR with Dr. Ortega for oophorectomy. Pt states last po intake was noon today. Pt c/ o LLQ pain, nausea. No vomiting. No dysuria. No vaginal discharge. No new complaints since last night, except persistent pain. Pt is ambulatory in the ED. - Physicial Exam PE: 10/06/18 16:09 Gen: aaox3, uncomfortable heart: +s1s2 reg lungs: cta b/l abd: soft, LLQ/L pelvis ttp, no rebound or guarding, no cva ttp ext: no c/c/e - Medical Decision Making 10/06/18 16:07 I, Dr. Stella Sawant, DO, attest that this document has been prepared under my direction and personally reviewed by me in its entirety. I further attest, that it accurately reflects all work, treatment, procedures and medical decision -making performed by me. 10/06/18 16:10 a/p: 48yo female with L ovarian cyst/mass -sent by [facility] from the office for surgery [facility] -told to call Dr. Ortega upon arrival in the ED -pt NPO since noon today -labs drawn yesterday -will give zofran for nausea, npo, morphine for pain, ivf hydration -will monitor and reassess 10/06/18 16:[address] Ortega who requests coags and type and screen accepts pt to [facility] service *DC/Admit/Observation/Transfer Diagnosis at time of Disposition: Ovarian mass, left - Discharge Dispostion Condition at time of disposition: Fair Decision to Admit order: Yes - Referrals Referrals: Burt Mas MD [Primary Care Provider] - - Patient Instructions - Post Discharge Activity
[2018-10-06] MEDS ORDERED: SODIUM CHLORIDE 0.9% 1000 ML INFUS.BAG IV ONE (16:17)
--- NOTE | 2018-10-06 16:30 | HP ---
Admitting History and Physical - Past Medical History PATIENT FINANCIAL ADVOCATE: Yes: Seizure. No: Peripheral Neuropathy Cardiovascular: No: HTN, [place] Gastrointestinal: No: GERD Reproductive: Yes: Fibroids (h/o SIMA), Other (ovarian cyst) ...: No Infectious Disease: No: HIV, MRSA, STD's Psych: No: Depression, Panic - Past Surgical History Past Surgical History: Yes: Hysterectomy, Appendectomy - Smoking History Smoking history: Never smoked Have you smoked in the past 12 months: No Aproximately how many cigarettes per day: 0 - Alcohol/Substance Use Hx Alcohol Use: No - Social History ADL: Independent History of Recent Travel: No Home Medications - Allergies Allergies/Adverse Reactions: Allergies Allergy/AdvReac Type Severity Reaction Status Date / Time Iodinated Contrast- Oral and Allergy Hives Verified 10/06/18 14:41 IV Dye [Iodinated Contrast Media - IV Dye] - Home Medications Home Medications: Ambulatory Orders Levetiracetam [Keppra] 1,000 mg PO BID 03/17/15 Ibuprofen [Motrin -] 600 mg PO TID PRN #21 tablet 10/05/18 Family Disease History - Family Disease History Family Disease History: Diabetes: Father, Mother, Heart Disease: Father, Mother Review of Systems - Review of Systems Constitutional: reports: No Symptoms Eyes: reports: No Symptoms HENT: reports: No Symptoms Neck: reports: No Symptoms Cardiovascular: reports: No Symptoms Respiratory: reports: No Symptoms Gastrointestinal: reports: No Symptoms Genitourinary: reports: Other (pelvic pain, left ovarian cyst) Integumentary: reports: No Symptoms Neurological: reports: No Symptoms Endocrine: reports: No Symptoms Hematology/Lymphatic: reports: No Symptoms Psychiatric: reports: No Symptoms Physical Examination Vital Signs: Vital Signs Temperature 98.6 F 10/06/18 14:38 Pulse Rate 83 10/06/18 14:38 Respiratory Rate 16 10/06/18 14:38 Blood Pressure 138/82 10/06/18 14:38 O2 Sat by Pulse Oximetry (%) 100 10/06/18 14:38 Constitutional: Yes: Well Nourished, Calm Eyes: Yes: Conjunctiva Clear HENT: Yes: Atraumatic Neck: Yes: Supple Cardiovascular: Yes: Regular Rate and Rhythm Gastrointestinal: Yes: Normal Bowel Sounds, Soft, Tenderness Neurological: Yes: Alert, Oriented Psychiatric: Yes: Alert, Oriented Problem List - Problems (1) Ovarian cyst Code(s): N83.20 - UNSPECIFIED OVARIAN CYSTS * DO NOT USE * Qualifiers: Laterality: bilateral (2) Abdominal pain Code(s): R10.9 - UNSPECIFIED ABDOMINAL PAIN Qualifiers: Abdominal location: left lower quadrant Qualified Code(s): R10.32 - Left lower quadrant pain Assessment/Plan Pt with severe pelvic pain, large left ovarian cyst plan for laparoscopic cystectomy vs. oophorectomy - pt expressed desire for oophorectomy R/B/A discussed with pt informed consent signed anesthesia/OR team aware
[2018-10-06] MEDS ORDERED: MIDAZOLAM HCL 2 MG/2 ML SINGLE DOSE VIAL ONE (16:48)
[2018-10-06 17:00] LABS: INR 1.01 (0.83-1.09); PROTHROMBIN TIME (PATIENT) 11.9 SEC (9.7-13.0)
[2018-10-06 17:03] LABS: ACTIVATED PTT 28.6 SECONDS (25.2-36.5)
[2018-10-06] MEDS ORDERED: DEXAMETHASONE SOD PHOSPHATE 4 MG/1 ML VIAL ONE ×2 (17:18→19:03)
[2018-10-06] MEDS ORDERED: LIDOCAINE HCL/PF 2% SDV 5ML VIAL ONE (17:18)
[2018-10-06] MEDS ORDERED: ceFAZolin SODIUM 1 GM VIAL ONE ×2 (17:18→21:09)
[2018-10-06] MEDS ORDERED: KETOROLAC TROMETHAMINE 30 MG/1 ML VIAL ONE (17:18)
[2018-10-06] MEDS ORDERED: GLYCOPYRROLATE 0.2 MG/1 ML VIAL ONE (17:18)
[2018-10-06] MEDS ORDERED: NEOSTIGMINE METHYLSULFATE 0.5 MG/ML - 10 ML MDV ONE (17:18)
[2018-10-06] MEDS ORDERED: SODIUM CHLORIDE 0.9% P/F 10 ML VIAL IJ ONE (17:18)
[2018-10-06] MEDS ORDERED: BUPIVACAINE HCL/PF 0.5% (5MG/ML) 10 ML VIAL ONE (17:32)
[2018-10-06] MEDS ORDERED: BUPIVACAINE HCL/PF (5 MG/ML) 30 ML VIAL IJ ONE (19:07)
[2018-10-06] MEDS ORDERED: IBUPROFEN 800 MG/8 ML IJ IVPB PRN (19:24)
--- NOTE | 2018-10-06 19:24 | OP ---
Operative Note - Note: Operative Date: 10/06/18 (dictation [id number]) Pre-Operative Diagnosis: pelvic pain, left ovarian cyst Post-Operative Diagnosis: Other (same as preop with omental adhesions to anterior abdominal wall, colorectal adhesions to left ovary) Surgeon: Barbara Ortega Oral Pathologist: Shellie Ferreira (Dr. Winn for intraop consult) Anesthesiologist/BLUEPRINTING MACHINE OPERATOR: Chirag Herrera Anesthesia: General Specimens Removed: left ovarian cyst, portion of left ovary Estimated Blood Loss (mls): 100 Operative Report Dictated: Yes
[2018-10-06] MEDS ORDERED: oxyCODONE HCL 5 MG TABLET PO PRN (19:31)
[2018-10-06] MEDS ORDERED: METHYLERGONOVINE MALEATE 0.2 MG/1 ML AMP IM PRN (19:31)
[2018-10-06] MEDS ORDERED: ACETAMINOPHEN INJECTION 100 ML IVPB ONE (19:35)
[2018-10-06] MEDS ORDERED: ONDANSETRON 4 MG/2 ML VIAL IVPUSH PRN (19:43)
[2018-10-06] MEDS ORDERED: ACETAMINOPHEN 1000 MG/100 ML VIAL (NON FORMULARY) IVPB ONE (19:47)
[2018-10-06] MEDS: LACTATED RINGERS SOLUTION 1,000 ML IV SCH (21:00)
[2018-10-06] MEDS ORDERED: CEFAZOLIN 1 GM/D5W 1 GM/50 ML BAG IVPB SCH (21:15)
[2018-10-06] MEDS ORDERED: CEFAZOLIN 1 GM in DEXTROSE 5%-WATER - 50 ML IVPB SCH (21:34)
[2018-10-06] MEDS: levETIRAcetam 500 MG TABLET (FP) PO SCH (23:00)
[2018-10-07] MEDS: SIMETHICONE 80 MG TAB.CHEW (FP) PO PRN ×3 (00:11→14:12)
[2018-10-07] MEDS: CEFAZOLIN 1 GM/D5W 1 GM/50 ML BAG IVPB SCH ×3 (01:57→17:40)
[2018-10-07] MEDS: ACETAMINOPHEN 325 MG TABLET (FP) PO PRN ×3 (02:56→14:12)
[2018-10-07] MEDS: LACTATED RINGERS SOLUTION 1,000 ML IV SCH ×2 (05:13→20:34)
--- NOTE | 2018-10-07 07:57 | OP ---
DATE OF OPERATION: 10/06/2018 PREOPERATIVE DIAGNOSES: Pelvic pain, left ovarian cyst. POSTOPERATIVE DIAGNOSES: Pelvic pain, left ovarian cyst with colorectal adhesions to the left ovary as well as omental adhesions to the anterior abdominal wall. SURGEON: Barbara Ortega DO TUTORIAL LABORATORY SUPERVISOR: JOSE F Voss INTRAOPERATIVE CONSULTATION: With General Surgery, Sumit Winn MD. ANESTHESIA: General by Chirag Herrera MD. PROCEDURE: Laparoscopic left ovarian cystectomy and partial oophorectomy and lysis of adhesions. ESTIMATED BLOOD LOSS: 100 mL. COUNTS: Sponge, needle and instrument count correct. COMPLICATIONS: None. DISPOSITION: Stable to PACU. BRIEF HISTORY AND PROCEDURE: Patient is a 48-year-old female who was seen in the emergency department as well as subsequently in the office complaining of pelvic pain. Was found to have a large left ovarian cyst. The patient was sent to the emergency department and added on to the surgical schedule due to the severity of the patient's pain. She was consented for possible oophorectomy or ovarian cystectomy prior to the procedure. She was then taken back to the operating room, given general anesthesia and placed in the dorsal lithotomy position. A Pineda catheter was placed under sterile conditions. She was prepped and draped in the usual sterile fashion. A hard timeout was performed. A 5-mm skin incision was created in the umbilicus and a Veress needle was introduced into the 5-mm incision. The abdomen was insufflated with CO2 gas. A 5-mm trocar was then placed and the camera was inserted. After confirmation of intraperitoneal placement 2 lower quadrant ports were placed. A 5-mm left lower quadrant and a 12-mm right lower quadrant port were placed. Omental adhesions were noted to the anterior abdominal wall at the level of the umbilicus which were taken down with the LigaSure device at this time. Then the left ovary was noted to be adhered to the left pelvic sidewall as well as to the left colon and the left rectum. The ovary was bluntly dissected using the laparoscopic peanut from the left colon and the left rectum as well and elevated at this time. Anatomy was somewhat distorted due to the adhesions. The left infundibulopelvic ligament was identified and at the base of the ovary being sure to stay within the pelvic sidewall the IP ligament was clamped, cut and cauterized with the LigaSure device. The ovarian cyst was ruptured by accident during this portion of the case. The ovarian tissue was elevated and dissected off its adhesions to the colon bluntly and the free portion of the ovary was elevated and resected using the LigaSure device. At this time an EndoCatch bag was placed in the 12-mm right lower quadrant port and the specimen removed in its entirety. The surgical bed was noted to be having some bleeding. It was noted to be very close to the rectum at which point General Surgery was called in to evaluate the colorectal tissue. It did not appear that any bowel perforation had occurred. Attempts to place a serosal suture with the Endo Assist device by General Surgery was completed. However, this did continue to tear through the tissue. At this point this portion of the surgery was aborted and the surgical site was again noted to be slightly bleeding. FloSeal was placed on top the surgical site as well as a piece of Surgicel. Several minutes had passed and hemostasis was achieved. The abdomen was suctioned of any liquid and blood. At this time excellent hemostasis was again noted. The right lower quadrant port was closed with the Yang-Mitch device using 0 Vicryl suture. The abdomen was desufflated. The skin incisions were reapproximated using 4-0 Biosyn suture and skin glue. The patient was awoken from anesthesia and recovering in stable condition in the PACU at the time of this dictation. BARBARA ORTEGA DO /[id number]
[2018-10-07 08:30] LABS: BASO % 0.1 % (0-2.0); HEMATOCRIT 31.6 % (32.4-45.2); HEMOGLOBIN 10.9 GM/dL (10.7-15.3); LYMPH % 10.8 % (8-40); MCH 32.2 pg (25.7-33.7); MCHC 34.4 g/dl (32.0-36.0); MEAN CELL VOLUME 93.6 fl (80-96); MONO % 1.7 % (3.8-10.2); NEUT % 87.4 % (42.8-82.8); PLATELET COUNT 173 K/MM3 (134-434); RBC 3.38 M/mm3 (3.60-5.2); RDW 11.8 % (11.6-15.6); WHITE BLOOD COUNT 7.6 K/mm3 (4.0-10.0)
[2018-10-07] MEDS: oxyCODONE HCL 5 MG TABLET PO PRN ×2 (08:32→14:13)
--- NOTE | 2018-10-07 09:26 | PN ---
Progress Note, Physician Chief Complaint: Pt seen/evaluated. Having diffuse abdominal pain overnight. Tolerating clears , phillip catheter draining adequate clear yellow urine. No nausea/vomiting. No other complaints. - Current Medication List Current Medications: Active Medications Acetaminophen (Tylenol -) 650 mg PO Q4H PRN PRN Reason: PAIN LEVEL 1 - 3 Last Admin: 10/07/18 08:33 Dose: 650 mg Lactated Ringer's (Lactated Ringers Solution) 1,000 mls @ 125 mls/hr IV ASDIR RENATO Last Admin: 10/07/18 05:13 Dose: 125 mls/hr Cefazolin Sodium (Ancef 1 Gm Premixed Ivpb -) 1 gm in 50 mls @ 100 mls/hr IVPB Q8H-IV RENATO Stop: 10/07/18 21:33 Last Admin: 10/07/18 01:57 Dose: 100 mls/hr Ibuprofen (Caldolor Injection -) 800 mg IVPB Q8H PRN PRN Reason: Fever - If PO not effective Last Admin: 10/07/18 00:08 Dose: 800 mg Levetiracetam (Keppra -) 1,000 mg PO BID RENATO Last Admin: 10/06/18 23:00 Dose: 1,000 mg Ondansetron HCl (Zofran Injection) 4 mg IVPUSH Q6H PRN PRN Reason: NAUSEA AND/OR VOMITING Oxycodone HCl (Roxicodone -) 5 mg PO Q4H PRN PRN Reason: PAIN LEVEL 4 - 6 Last Admin: 10/07/18 05:09 Dose: 5 mg Oxycodone HCl (Roxicodone -) 10 mg PO Q4H PRN PRN Reason: PAIN LEVEL 7 - 10 Last Admin: 10/07/18 08:32 Dose: 10 mg Simethicone (Mylicon -) 80 mg PO Q4H PRN PRN Reason: GAS Last Admin: 10/07/18 08:33 Dose: 80 mg - Objective Vital Signs: Vital Signs Temperature 98.1 F 10/07/18 05:00 Pulse Rate 76 10/07/18 05:00 Respiratory Rate 18 10/07/18 05:00 Blood Pressure 93/51 L 10/07/18 05:00 O2 Sat by Pulse Oximetry (%) 99 06/20/19 21:31 Constitutional: Yes: Well Nourished, Calm Eyes: Yes: Conjunctiva Clear, EOM Intact HENT: Yes: Normocephalic Neck: Yes: Trachea Midline Cardiovascular: Yes: Regular Rate and Rhythm Respiratory: Yes: Regular, CTA Bilaterally Gastrointestinal: Yes: Tenderness (post surgical tenderness). No: Distention, Vomiting Genitourinary: Yes: Phillip Present (with clear yellow urine) Extremities: Yes: WNL Edema: No Wound/Incision: Yes: Clean/Dry, Well Approximated Labs: CBC, BMP 10/07/18 07:38 INR, PTT INR 1.01 (0.83-1.09) 10/06/18 16:25 Problem List - Problems (1) Ovarian cyst Code(s): N83.20 - UNSPECIFIED OVARIAN CYSTS * DO NOT USE * Qualifiers: Laterality: bilateral (2) Abdominal pain Code(s): R10.9 - UNSPECIFIED ABDOMINAL PAIN Qualifiers: Abdominal location: left lower quadrant Qualified Code(s): R10.32 - Left lower quadrant pain Assessment/Plan POD#1 s/p laparoscopic left ovarian cystectomy, partial oophporectomy, lysis of adhesions with intraop surgical consult Afebrile not tachycardic slighly hypotensive overnight, may be due to medications/anesthesia, will monitor WBC normal, Hgb 10.9 repeat labs around noon d/c marjan Black[facility]
[2018-10-07] MEDS: levETIRAcetam 500 MG TABLET (FP) PO SCH ×2 (10:10→21:27)
--- NOTE | 2018-10-07 12:35 | SURG ---
Surgery Silo Man Note Silo Man: Shellie Ferreira PA-C Date of Service: 10/07/18 Diagnosis: pelvic pain, left ovarian cyst Procedure: laparoscopic left ovarian cystectomy, partial oorpherctomy, with Lysis of adhesions I was present for the entirety of the operative procedure. For further detail, please refer to operative report. Visit type - Case Type Case Type: ED Admission - Emergency Emergency Visit: Yes ED Registration Date: 10/06/18 Care time: The patient presented to the Emergency Department on the above date and was hospitalized for further evaluation of their emergent condition. - New patient This patient is new to me today: Yes Date on this admission: 10/07/18
[2018-10-07 12:47] LABS: BASO % 0.1 % (0-2.0); HEMATOCRIT 31.4 % (32.4-45.2); HEMOGLOBIN 10.8 GM/dL (10.7-15.3); LYMPH % 9.1 % (8-40); MCH 32.3 pg (25.7-33.7); MCHC 34.4 g/dl (32.0-36.0); MEAN CELL VOLUME 93.9 fl (80-96); MEAN PLT VOLUME 7.9 fl (7.5-11.1); MONO % 3.2 % (3.8-10.2); NEUT % 87.6 % (42.8-82.8); PLATELET COUNT 173 K/MM3 (134-434); RBC 3.34 M/mm3 (3.60-5.2); RDW 11.8 % (11.6-15.6); WHITE BLOOD COUNT 9.3 K/mm3 (4.0-10.0)
[2018-10-07 14:22] LABS: ALBUMIN 3.1 g/dl (3.4-5.0); BILIRUBIN,TOTAL 0.2 mg/dL (0.2-1); BLOOD UREA NITROGEN 9.7 mg/dL (7-18); CALCIUM 8.5 mg/dL (8.5-10.1); CREATININE 0.9 mg/dL (0.55-1.3); TOT PROT 6.4 g/dl (6.4-8.2)
[2018-10-07] MEDS ORDERED: IBUPROFEN 800 MG/8 ML IJ IVPB SCH (16:00)
--- NOTE | 2018-10-07 16:09 | PN ---
Progress Note (short form) - Note Progress Note: Pt seen around 330pm, per pt and RN pt attempted to ambulate however was unable to take more than 2 steps due to severe pain. On exam, pt laying in bed with eyes closed, daughter bedside. Opens eyes to voice, continues to endorse 10/10 pain despite 10mg Oxycodone PO at 1400. Abdomen soft, distended (slightly moreso than this AM), hypoactive bowel sounds. +TTP in all quadrants, +rebound/guarding. Afternoon labs stable, VSS D/w attending Dr Ortega, stat CT noncon ordered to r/o free air. Radiology contacted, will call for pt shortly. RN aware.
[2018-10-07] MEDS: MORPHINE SULFATE 2 MG/ML VIAL IVPUSH PRN ×2 (17:01→22:13)
[2018-10-07] MEDS: ACETAMINOPHEN 1000 MG/100 ML VIAL (NON FORMULARY) IVPB SCH ×2 (17:23→21:27)
[2018-10-07] MEDS ORDERED: BISACODYL 10 MG SUPP.RECT RC PRN (19:31)
[2018-10-07] MEDS ORDERED: ACETAMINOPHEN 325 MG TABLET (FP) PO PRN (23:08)
[2018-10-08] MEDS: oxyCODONE HCL 5 MG TABLET PO PRN (06:03)
[2018-10-08] MEDS: SIMETHICONE 80 MG TAB.CHEW (FP) PO PRN (06:03)
--- NOTE | 2018-10-08 06:28 | PN ---
Progress Note, Physician Chief Complaint: Pt feeling much better this a.m. States pain is much improved. Was able to sleep overnight. +flatus and void, no BM yet. CT scan read noted last night, no acute issues per read/images. - Current Medication List Current Medications: Active Medications Acetaminophen (Tylenol -) 650 mg PO Q4H PRN PRN Reason: FEVER Last Admin: 10/08/18 06:03 Dose: 650 mg Levetiracetam (Keppra -) 1,000 mg PO BID RENATO Last Admin: 10/07/18 21:27 Dose: 1,000 mg Oxycodone HCl (Roxicodone -) 5 mg PO Q4H PRN PRN Reason: PAIN LEVEL 4 - 6 Last Admin: 10/07/18 05:09 Dose: 5 mg Oxycodone HCl (Roxicodone -) 10 mg PO Q4H PRN PRN Reason: PAIN LEVEL 7 - 10 Last Admin: 10/08/18 06:03 Dose: 10 mg Simethicone (Mylicon -) 80 mg PO Q4H PRN PRN Reason: GAS Last Admin: 10/08/18 06:03 Dose: 80 mg - Objective Vital Signs: Vital Signs Temperature 98.4 F 10/08/18 06:00 Pulse Rate 88 10/08/18 06:00 Respiratory Rate 18 10/08/18 06:00 Blood Pressure 96/73 10/08/18 06:00 O2 Sat by Pulse Oximetry (%) 99 10/06/18 21:31 Constitutional: Yes: Well Nourished, No Distress, Calm Eyes: Yes: Conjunctiva Clear HENT: Yes: Atraumatic Neck: Yes: Supple Cardiovascular: Yes: Regular Rate and Rhythm Respiratory: Yes: WNL Gastrointestinal: Yes: Normal Bowel Sounds, Soft Genitourinary: No: Hematuria, Vaginal Bleeding Extremities: Yes: WNL Edema: No Wound/Incision: Yes: Clean/Dry, Well Approximated Neurological: Yes: Alert, Oriented Psychiatric: Yes: Alert, Oriented Labs: CBC, BMP 10/07/18 12:18 10/07/18 12:18 INR, PTT INR 1.01 (0.83-1.09) 10/06/18 16:25 Problem List - Problems (1) Ovarian cyst Code(s): N83.20 - UNSPECIFIED OVARIAN CYSTS * DO NOT USE * Qualifiers: Laterality: bilateral (2) Abdominal pain Code(s): R10.9 - UNSPECIFIED ABDOMINAL PAIN Qualifiers: Abdominal location: left lower quadrant Qualified Code(s): R10.32 - Left lower quadrant pain Assessment/Plan POD#2 s/p laparoscopic left ovarian cystectomy, partial oophporectomy, lysis of adhesions with intraop surgical consult Afebrile not tachycardic WBC normal, Hgb stable regular diet OOB once pain control optimized with oral medications will plan for discharge home if still able to void/passing flatus/tolerating regular diet
[2018-10-08] MEDS ORDERED: diphenhydrAMINE HCL 25 MG CAPSULE (FP) PO PRN (07:34)
[2018-10-08 08:38] LABS: BASO % 0.6 % (0-2.0); EOS % 0.1 % (0-4.5); HEMATOCRIT 29.4 % (32.4-45.2); HEMOGLOBIN 10.2 GM/dL (10.7-15.3); LYMPH % 23.3 % (8-40); MCH 32.5 pg (25.7-33.7); MCHC 34.7 g/dl (32.0-36.0); MEAN CELL VOLUME 93.6 fl (80-96); MEAN PLT VOLUME 8.1 fl (7.5-11.1); MONO % 4.5 % (3.8-10.2); NEUT % 71.5 % (42.8-82.8); PLATELET COUNT 150 K/MM3 (134-434); RBC 3.14 M/mm3 (3.60-5.2)
[2018-10-08 08:52] VITALS: BP 114/71; PULSE 61; TEMP 98.2
[2018-10-08 09:06] LABS: BLOOD UREA NITROGEN 12.2 mg/dL (7-18); CALCIUM 8.2 mg/dL (8.5-10.1); CREATININE 0.8 mg/dL (0.55-1.3); POTASSIUM 3.9 mmol/L (3.5-5.1)
[2018-10-08] MEDS: levETIRAcetam 500 MG TABLET (FP) PO SCH (09:30)
--- NOTE | 2018-10-09 09:09 | DS ---
Physical Examination Vital Signs: Vital Signs Temperature 98.2 F 10/08/18 08:52 Pulse Rate 61 10/08/18 08:52 Respiratory Rate 18 10/08/18 08:52 Blood Pressure 114/71 10/08/18 08:52 O2 Sat by Pulse Oximetry (%) 99 10/06/18 21:31 Constitutional: Yes: Well Nourished, No Distress, Calm HENT: Yes: Atraumatic Neck: Yes: Supple Cardiovascular: Yes: Regular Rate and Rhythm Respiratory: Yes: Regular Gastrointestinal: Yes: Normal Bowel Sounds, Soft, Tenderness. No: Distention, Tenderness, Rebound, Vomiting Wound/Incision: Yes: Clean/Dry, Well Approximated Neurological: Yes: Alert, Oriented Labs: CBC, BMP 10/08/18 08:15 10/08/18 08:15 Discharge Summary Reason For Visit: MASS OF LEFT OVARY Procedures: Principal: laparoscopic left ovarian cystectomy, partial oophorecotmy, lysis of adhesions Hospital Course: Pt admitted through ER on 10/06 for severe abdominal pain and left ovarian cyst . Pt underwent laparoscopic left ovarian cystectomy and partial left oophorectomy complicated by adhesions (see operative report). Pt stayed as inpatient for pain control. On post op day 1 had pain out of proportion and CT scan was completed with no acute pathology or free air noted, only resolution of cyst and presence of intraoperative hemostatic agents in pelvis. Pt was kept overnight again and on post op day 2 had much better pain control, was ambulatory, voiding, passing flatus and tolerating diet . Labs were stable and patient was discharged home. Condition: Good - Instructions Diet, Activity, Other Instructions: Dr. Ortega Vp [employer] discharge instructions Physical activity Resume your normal everyday activity as tolerated no heavy lifting or exercise until seen by your surgeon. You may walk unlimited marisa of and climb stairs. You may resume driving the car when you feel safe and comfortable behind the wheel. No sexual activity as instructed by Dr. Ortega. Wound care You have a liquid glue band-aid in place. It may begin to flake off over the next few days, do not peel it, it will come off on its own. You may shower 2 days after surgery. When showering, allow soap and water to run over the incision, do not scrub the incision. Pat dry well after showering. Diet There are no dietary restrictions. Eat healthy, high-fiber foods. Drink 6 to 8 glasses of liquid each day. This will assist in keeping your bowels are regular. Pain management You may take Tylenol (Acetaminophen) or Ibuprofen (for example, Motrin, Advil etc) for mild pain. Any pain prescription medication ordered should be taken as prescribed for moderate to severe pain. Please take as directed. If the prescribed dosage is not controlling your pain, please contact Dr Ortega. Do not drive, drink alcohol or operate heavy machinery while taking narcotic pain medications. You may Acetaminophen and Ibuprofen alternating. For example, you can take Acetaminophen at 10AM followed by Ibuprofen at 1pm, followed by Acetaminophen again at 4pm. We recommend keeping track of the dosage and time you take each to ensure you do not exceed the rn pediatric's recommended daily dosage. Take Ibuprofen with food, Acetaminophen may be taken on an empty stomach. Do not exceed 3g (3000mg) of Acetaminophen in 24 hours. Do not exceed 2400mg Ibuprofen in [address] Ortega for any of the following: Severe pain not relieved by medication Fever of 101 or higher Excessive bleeding or drainage on dressing Inability to urinate Call the office at [phone] for an appointment in seven days. Disposition: HOME - Home Medications Comprehensive Discharge Medication List: Ambulatory Orders RX: Levetiracetam [Keppra] 1,000 mg PO BID 03/17/15 Ibuprofen [Motrin -] 600 mg PO TID PRN #21 tablet 10/05/18 Ibuprofen [Motrin -] 600 mg PO QID PRN #28 tablet 10/08/18 Oxycodone HCl/Acetaminophen [Percocet 5-325 mg Tablet -] 1 - 2 tab PO Q4H #30 tablet MDD 8 10/08/18
--- NOTE | 2018-10-10 16:39 | PATH ---
Surgical Pathology Report Patient Name: ANURAG VALVERDE [facility]. Rec. 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 PHYSICIAN EMERGENCY DEPT Specimen(s) Received LEFT OVARIAN CYST AND PORTION OF LEFT OVARY Clinical History Left ovarian cyst/pelvic pain Final Diagnosis LEFT OVARIAN CYST AND PORTION OF LEFT OVARY, PARTIAL LEFT OOPHORECTOMY: OVARIAN TISSUE WITH HEMORRHAGIC CORPUS LUTEUM CYST. PERIOVARIAN FIBROCONNECTIVE TISSUE WITH SEVERE ACUTE INFLAMMATION.ngitis is TUBO-OVARIAN ADHESION SHOWING PORTION OF FALLOPIAN TUBE WITH HYDROSALPINX. Electronically Signed Adrien Rivas M.D. Gross Description Received in formalin labeled "left ovarian cyst," is a 5.2 x 5.0 x 1.6 cm aggregate of abundant leblanc-brown portions of tissue, consistent with a disrupted ovarian cyst. Sectioning reveals foci of hemorrhage. No normal appearing ovarian parenchyma is identified. 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 DL/10/07/2018 saudi/10/07/2018
== END 2018-10-08 12:45 | disposition home or self-care (01) | DRG 513 ==
LOC: JER 14:32 → JERBED 16:15 → J3W 21:30
PROVIDERS: ADMIT Obstetrics & Gynecology; ATTEND Obstetrics & Gynecology
PROC: 0DNU4ZZ Release Omentum, Percutaneous Endoscopic Approach (ICD-10-PCS; 2018-10-06)
PROC: 0UB14ZZ Excision of Left Ovary, Percutaneous Endoscopic Approach (ICD-10-PCS; principal; 2018-10-06 14:30)
DX: N83.202 Unspecified ovarian cyst, left side (principal); I95.81 Postprocedural hypotension; G40.909 Epilepsy, unspecified, not intractable, without status epilepticus
CPT/HCPCS: 36415; 74176-TC; 80048; 80053; 85025; 85610; 85730; 86850; 86900; 86901; 88305-TC; 94760; 99282-25; J0131

== ENCOUNTER 2018-12-05 11:41 | Inpatient (IN) | payer OTHER ==
[2018-12-05] MEDS ORDERED: SODIUM CHLORIDE 2,177 ML IV ONE (12:05)
[2018-12-05] MEDS ORDERED: ACETAMINOPHEN 1000 MG/100 ML VIAL (NON FORMULARY) IVPB ONE ×2 (12:06→17:07)
[2018-12-05] MEDS ORDERED: ACETAMINOPHEN INJECTION 100 ML IVPB ONE ×2 (12:12→17:38)
[2018-12-05] MEDS ORDERED: METOCLOPRAMIDE HCL INJECTION 10 MG/2 ML VIAL IVPB ONE (12:14)
--- NOTE | 2018-12-05 12:19 | PDOC ---
History of Present Illness - General Chief Complaint: SIRS, Suspected/Possible Stated Complaint: FEVER, BODYACHE, VOMITING Time Seen by Provider: 12/05/18 12:04 History Source: Patient Exam Limitations: No Limitations - History of Present Illness Initial Comments: 12/05/18 12:15 48yo F with PMH of Epilepsy, Migraines presenting to ED with family with complaints of fever, body aches and headache since yesterday. Pt returned from a 15 day trip to [place] yesterday and since the return she has had fevers, body aches and headache. She took 4 Advil yesterday with out much relief and 2 Motrin today. She says she was bitten by mosquitos. She also states that there were 4 people that she knew in the area that were sick with Dengue Fever. She states that the headache is all around her head, associated with photophobia and pain in her neck. She also endorses abdominal pain (only when touched), nausea, joint pains. She also notes dysuria, frequency and urgency. Denies rashes, diarrhea, constipation, vomiting, cough, sore throat, congestion. Denies history of STDs, Herpes, HIV. PMD: Tg PMH: see hpi PSH: hysterectomy Meds: Keppra Allergies: contrast Past History - Past Medical History Allergies/Adverse Reactions: Allergies Allergy/AdvReac Type Severity Reaction Status Date / Time Iodinated Contrast Media Allergy Hives Verified 12/05/18 11:49 [Iodinated Contrast Media - IV Dye] Home Medications: Ambulatory Orders Levetiracetam [Keppra] 1,000 mg PO BID 03/17/15 Anemia: No Asthma: No Cancer: No Cardiac Disorders: No CVA: No COPD: No CHF: No DVT: No Dementia: No Diabetes: No GI Disorders: No Disorders: No HTN: No Hypercholesterolemia: No Liver Disease: No Seizures: Yes (EPILEPSY) Thyroid Disease: No - Surgical History Abdominal Surgery: No Appendectomy: Yes Cardiac Surgery: No Cholecystectomy: No Lung Surgery: No Neurologic Surgery: No Orthopedic Surgery: No - Immunization History Immunization Up to Date: Yes - Suicide/Smoking/Psychosocial Hx Smoking Status: No Smoking History: Never smoked Have you smoked in the past 12 months: No Number of Cigarettes Smoked Daily: 0 Hx Alcohol Use: No Drug/Substance Use Hx: No Substance Use Type: None Hx Substance Use Treatment: No Review of Systems - Review of Systems Constitutional: Yes: Chills, Fever, Weakness HEENTM: Yes: See HPI. No: Throat Pain, Throat Swelling Respiratory: No: Cough, Shortness of Breath Cardiac (ROS): No: Chest Pain, Syncope, Chest Tightness ABD/GI: Yes: See HPI, Nausea. No: Constipated, Diarrhea, Rectal Bleeding, Vomiting : Yes: Burning, Dysuria, Frequency Musculoskeletal: Yes: Back Pain, Joint Pain, Muscle Pain, Neck Pain Integumentary: No: Pruritus, Rash Neurological: Yes: Headache. No: Numbness, Paresthesia, Tingling, Tremors *Physical Exam - Vital Signs Last Vital Signs Temp Pulse Resp BP Pulse Ox 103.0 F H 130 H 20 132/78 100 12/05/18 11:43 12/05/18 11:43 12/05/18 11:43 12/05/18 11:43 12/05/18 11:43 - Physical Exam General Appearance: Yes: Nourished, Appropriately Dressed, Moderate Distress HEENT: positive: EOMI, GERONIMO, Normal ENT Inspection. negative: Pharyngeal Erythema, Rhinorrhea Neck: positive: Tender, Trachea midline, Supple. negative: Lymphadenopathy (R) , Lymphadenopathy (L) Respiratory/Chest: positive: Chest Tender, Lungs Clear, Normal Breath Sounds. negative: Crackles, Rales, Rhonchi, Stridor, Wheezing Cardiovascular: positive: Regular Rhythm, S1, S2, Tachycardia. negative: Edema , JVD, Murmur Vascular Pulses: Dorsalis-Pedis (R): 2+, Doralis-Pedis (L): 2+ Gastrointestinal/Abdominal: positive: Normal Bowel Sounds, Soft, Tenderness ( diffuse tenderness) Musculoskeletal: positive: CVA Tenderness (R). negative: CVA Tenderness (L), Muscle Spasm, Vertebral Tenderness Extremity: positive: Pelvis Stable. negative: Swelling, Calf Tenderness Integumentary: positive: Normal Color, Dry, Warm. negative: Jaundice, Mottled, Pale, Hives, Petechiae, Rash Neurologic: positive: tax analyst II-XII NML intact, Fully Oriented, Alert, Normal Mood/ Affect, Normal Response, Motor Strength 5/5, Other (negative kernig, negative brudzinski) ED Treatment Course - LABORATORY CBC & Chemistry Diagram: 12/05/18 12:00 12/05/18 12:13 - RADIOLOGY Radiology Studies Ordered: Category Date Time Status CHEST X-RAY PORTABLE* [RAD] Stat Radiology 12/05/18 12:05 Ordered Medical Decision Making - Medical Decision Making 12/05/18 12:19 48yo F with PMH of Epilepsy, Migraines presenting to ED with family with complaints of fever, body aches and headache since yesterday. Pt returned from a 15 day trip to [place] yesterday and since the return she has had fevers, body aches and headache. She took 4 Advil yesterday with out much relief and 2 Motrin today. She says she was bitten by mosquitos. She also states that there was somebody in the house behind her who was sick. She states that the headache is all around her head, associated with photophobia and pain in her neck. She also endorses abdominal pain, nausea, joint pains. She also notes dysuria, frequency and urgency. Denies rashes, diarrhea, constipation, vomiting, cough, sore throat, congestion. vitals: febrile, tachycardic pe: diffuse joint, muscle tenderness, diffuse abdominal tenderness. negative kernig, negative brudzinski ddx includes but not limited to viral illness, meningitis, arthropod transmitted illness (dengue, yellow fever, malaria), urosepsis, sbo, Lyme sepsis workup, iv fluids, tylenol, reglan, benadryl. pt states headache is improving. labs significant for low wbc (no history of immunodeficiency). lactic >3. will recheck lactate. urine pending 12/05/18 14:56 Refusing LP. Patient told about benefits and risks about getting LP including ruling in or ruling out meningitis, headaches, infection, bleeding. Patient still refusing. She has capacity to make decisions. 12/05/18 15:09 ekg: sinus tachycardia at 108, pr 166 qtc 450. no priscilla or depressions. no twi. 12/05/18 15:[address] Meadows who recommended starting Vanc and Rocephin. Will follow patient during admission. *DC/Admit/Observation/Transfer Diagnosis at time of Disposition: Dengue Sepsis Qualifiers: Sepsis type: sepsis due to unspecified organism Sepsis acute organ dysfunction status: unspecified Qualified Code(s): A41.9 - Sepsis, unspecified organism - Discharge Dispostion Condition at time of disposition: Stable Decision to Admit order: Yes - Referrals - Patient Instructions - Post Discharge Activity
[2018-12-05 12:31] LABS: VENOUS PC02 47.7 mmHg (41-51); VENOUS PH 7.35 (7.31-7.41)
[2018-12-05 12:35] LABS: BASO % 0.4 % (0-2.0); EOS % 0.1 % (0-4.5); HEMATOCRIT 34.3 % (32.4-45.2); HEMOGLOBIN 12.1 GM/dL (10.7-15.3); LYMPH % 10.3 % (8-40); MCH 32.3 pg (25.7-33.7); MCHC 35.3 g/dl (32.0-36.0); MEAN CELL VOLUME 91.6 fl (80-96); MEAN PLT VOLUME 6.8 fl (7.5-11.1); MONO % 9.4 % (3.8-10.2); NEUT % 79.8 % (42.8-82.8); PLATELET COUNT 194 K/MM3 (134-434); RBC 3.75 M/mm3 (3.60-5.2); RDW 12.1 % (11.6-15.6); WHITE BLOOD COUNT 3.4 K/mm3 (4.0-10.0)
[2018-12-05 12:36] LABS: VENOUS PO2 < 49.0 mmHg (30-40)
[2018-12-05] MEDS ORDERED: METOCLOPRAMIDE HCL INJECTION 10 MG/2 ML VIAL ONE (12:46)
[2018-12-05 12:58] LABS: ALBUMIN 3.9 g/dl (3.4-5.0); ALK PHOS 62 U/L (45-117); ANION GAP 9 MMOL/L (8-16); BILIRUBIN,TOTAL 0.3 mg/dL (0.2-1); BLOOD UREA NITROGEN 10.8 mg/dL (7-18); CALCIUM 8.9 mg/dL (8.5-10.1); CHLORIDE 101 mmol/L (98-107); CO2 30 mmol/L (21-32); GLUCOSE,RANDOM 93 mg/dL (74-106); POTASSIUM 3.5 mmol/L (3.5-5.1); SGOT/AST 22 U/L (15-37); SGPT/ALT 44 U/L (13-61); SODIUM 140 mmol/L (136-145); TOT PROT 7.5 g/dl (6.4-8.2)
[2018-12-05 13:12] LABS: INR 1.13 (0.83-1.09); PROTHROMBIN TIME (PATIENT) 13.4 SEC (9.7-13.0)
[2018-12-05 14:11] LABS: PH,URINE >= 9.0 (5.0-8.0); URINE APPEARANCE CLOUDY; URINE BILIRUBIN NEGATIVE (NEGATIVE); URINE COLOR YELLOW; URINE GLUCOSE (UA) NEGATIVE (NEGATIVE); URINE KETONE NEGATIVE (NEGATIVE); URINE LEUK ESTERASE NEGATIVE (NEGATIVE); URINE NITRITE NEGATIVE (NEGATIVE); URINE PROTEIN NEGATIVE (NEGATIVE)
--- NOTE | 2018-12-05 14:42 | PDOC ---
Documentation entered by Yessy Luis SCRIBE, acting as scribe for Shellie Paz MD. Shellie Paz MD: This documentation has been prepared by the Toby kimble Adrianna, SCRIBE, under my direction and personally reviewed by me in its entirety. I confirm that the documentation accurately reflects all work, treatment, procedures, and medical decision making performed by me. Attending Attestation - Resident Resident Name: Radha Ma - [facility] HPI: The patient is a 48 year old female, with a significant PMH of epilepsy and migraines, who presents to the ED for evaluation of body aches and headache for two days, and fever for one day. Patient notes she returned from [place] yesterday , where 4 people had Dengue. Patient reports diffuse body aches and diffuse headache that developed yesterday. She reports associated photophobia and neck stiffness. Patient reports a fever that began today with a max temp of 101. She endorses diffuse abdominal pain, nausea, dysuria, and urinary frequency. Patient notes her symptoms do not feel similar to her migraines in the past. Denies vomit, rash, diarrhea, constipation, cough, sore throat, congestion. Allergies: Iodinated Contrast Surgical History: hysterectomy Social History: Denies EtOH, tobacco, or illicit drug use PCP: Dr. Reynaga - Physicial Exam PE: GENERAL: Awake, alert, and fully oriented, in no acute distress HEAD: No signs of trauma EYES: PERRLA, EOMI, sclera anicteric, conjunctiva clear ENT: Auricles normal inspection, hearing grossly normal, nares patent, oropharynx clear without exudates. Moist mucosa NECK: Normal ROM, supple, no lymphadenopathy, JVD, or masses LUNGS: Breath sounds equal, clear to auscultation bilaterally. No wheezes, and no crackles HEART: +Tachycardic. Regular rhythm, normal S1 and S2, no murmurs, rubs or gallops ABDOMEN: Soft, nontender, normoactive bowel sounds. No guarding, no rebound. No masses EXTREMITIES: Normal range of motion, no edema. No clubbing or cyanosis. No cords, erythema, or tenderness NEUROLOGICAL: Cranial nerves II through XII grossly intact. Normal speech, normal gait SKIN: Warm, Dry, normal turgor, no rashes or lesions noted. - Medical Decision Making 12/05/18 14:34 pt presents to the ED complaining of generalized malaise, fever, diffuse body aches, severe headache and nausea without vomiting. Of note, patient had recently traveled to [place] and had several sick contacts who have dengue. Also complained of dysuria, but labs show no evidence of UTI. PLan was for LP to rule out meningitis, although dengue is more likely. However patient is refusing. Will discuss with ID whether antibiotic tx for meningitis should be started. Will admit to medicine for continued monitoring and supportive care. 12/05/18 14:40 Heart Score/ECG Review - ECG Impressions Tachycardia: Sinus Comment:: Otherwise normal ECG. ED Treatment Course - LABORATORY CBC & Chemistry Diagram: 12/05/18 12:00 12/05/18 12:13 - ADDITIONAL ORDERS Additional order review: Laboratory Results 12/05/18 12/05/18 12/05/18 13:38 12:13 12:13 PT with INR INR PTT (Actin FS) VBG pH POC VBG pCO2 POC VBG pO2 VBG HCO3 VBG O2 Sat (Giuseppe) VBG Base Excess Sodium 140 Potassium 3.5 Chloride 101 Carbon Dioxide 30 Anion Gap 9 BUN 10.8 Creatinine 1.0 Est GFR (CKD-EPI)AfAm 78.24 Est GFR (CKD-EPI)NonAf 67.51 Random Glucose 93 Lactic Acid 3.4 H* Calcium 8.9 Total Bilirubin 0.3 AST 22 ALT 44 Alkaline Phosphatase 62 Troponin I < 0.02 Total Protein 7.5 Albumin 3.9 Serum , Qual Urine Color Yellow Urine Appearance Cloudy Urine pH >= 9.0 H D Ur Specific [place] 1.021 Urine Protein Negative Urine Glucose (UA) Negative Urine Ketones Negative Urine Blood Negative Urine Nitrite Negative Urine Bilirubin Negative Urine Urobilinogen 1.0 Ur Leukocyte Esterase Negative 12/05/18 12/05/18 12/05/18 12:00 12:00 12:00 PT with INR 13.40 H INR 1.13 H PTT (Actin FS) VBG pH 7.35 POC VBG pCO2 47.7 POC VBG pO2 < 49.0 H VBG HCO3 25.6 VBG O2 Sat (Giuseppe) 71.1 VBG Base Excess 0.1 Sodium Potassium Chloride Carbon Dioxide Anion Gap BUN Creatinine Est GFR (CKD-EPI)AfAm Est GFR (CKD-EPI)NonAf Random Glucose Lactic Acid Calcium Total Bilirubin AST ALT Alkaline Phosphatase Troponin I Total Protein Albumin Serum , Qual Negative Urine Color Urine Appearance Urine pH Ur Specific [place] Urine Protein Urine Glucose (UA) Urine Ketones Urine Blood Urine Nitrite Urine Bilirubin Urine Urobilinogen Ur Leukocyte Esterase 12/05/18 12:00 PT with INR INR PTT (Actin FS) 30.3 VBG pH POC VBG pCO2 POC VBG pO2 VBG HCO3 VBG O2 Sat (Giuseppe) VBG Base Excess Sodium Potassium Chloride Carbon Dioxide Anion Gap BUN Creatinine Est GFR (CKD-EPI)AfAm Est GFR (CKD-EPI)NonAf Random Glucose Lactic Acid Calcium Total Bilirubin AST ALT Alkaline Phosphatase Troponin I Total Protein Albumin Serum , Qual Urine Color Urine Appearance Urine pH Ur Specific [place] Urine Protein Urine Glucose (UA) Urine Ketones Urine Blood Urine Nitrite Urine Bilirubin Urine Urobilinogen Ur Leukocyte Esterase 12/05/18 12:00 RBC 3.75 MCV 91.6 MCHC 35.3 RDW 12.1 MPV 6.8 L D Neutrophils % 79.8 Lymphocytes % 10.3 D Monocytes % 9.4 D Eosinophils % 0.1 Basophils % 0.4 - RADIOLOGY Radiograph Interpretation: EXAM#: TYPE/EXAM: RESULT: [id number] RAD/CHEST X-RAY PORTABLE* History. Sepsis Impression No evidence of active pulmonary disease. No pneumothorax, or pleural effusion is seen. Reported By: Jean Marie Collado MD 12/05/18 14:13 - Medications Given in the ED: ED Medications Discontinued Medications Generic Name Dose Route Start Last Admin Trade Name Freq PRN Reason Stop Dose Admin Acetaminophen 1,000 mg 12/05/18 12:06 12/05/18 12:25 Ofirmev Injection - IVPB 12/05/18 12:07 1,000 mg ONCE ONE Administration Diphenhydramine HCl 12.5 mg 12/05/18 12:14 12/05/18 12:54 Benadryl Injection - IVPUSH 12/05/18 12:15 12.5 mg ONCE ONE Administration Sodium Chloride 2,177 mls @ 1,088.5 mls/hr 12/05/18 12:05 12/05/18 12:25 Normal Saline - 30 ml/kg infuse over 2 hr (2177 ml) 12/05/18 14:04 1,088.5 mls/hr IV Administration ONCE ONE Metoclopramide HCl 10 mg 12/05/18 12:14 12/05/18 12:54 Reglan Injection - IVPB 12/05/18 12:15 10 mg ONCE ONE Administration
[2018-12-05] MEDS ORDERED: VANCOMYCIN HCL 1,250 MG in DEXTROSE 5%-WATER - 250 ML IVPB ONE (15:26)
[2018-12-05] MEDS ORDERED: CEFTRIAXONE 2,000 MG in DEXTROSE 5%-WATER - 50 ML IVPB ONE (15:26)
[2018-12-05] MEDS ORDERED: CEFTRIAXONE 2 GM/100 ML BAG IVPB ONE (15:47)
[2018-12-05] MEDS ORDERED: IBUPROFEN 600 MG TABLET (FP) PO ONE (16:52)
[2018-12-05] MEDS: IBUPROFEN 600 MG TABLET (FP) PO ONE ×2 (16:54→16:57)
[2018-12-05] MEDS: SODIUM CHLORIDE 1,000 ML IV SCH ×3 (18:21→22:54)
--- NOTE | 2018-12-05 19:21 | HP ---
Admitting History and Physical - Primary Care Physician PCP: Burt Mas - Admission Chief Complaint: body aches & body aches x 2 days, fever x 1 day. Recently in [place]-2 days ago History of Present Illness: 48yo F with PMH of Epilepsy, Migraines presenting to ED with family with complaints of fever, body aches and headache since yesterday. Pt returned from a 15 day trip to [place] yesterday and since the return she has had fevers, body aches and headache. She took 4 Advil yesterday with out much relief and 2 Motrin today. She says she was bitten by mosquitos. She also states that there were 4 people that she knew in the area that were sick with Dengue Fever. She states that the headache is all around her head, associated with photophobia and pain in her neck. She also endorses abdominal pain (only when touched), nausea, joint pains. She also notes dysuria, frequency and urgency. Denies rashes, diarrhea, constipation, vomiting, cough, sore throat, congestion. Denies history of STDs, Herpes, HIV. 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 - Past Surgical History Past Surgical History: Yes: Hysterectomy, Appendectomy - Smoking History Smoking history: Never smoked Have you smoked in the past 12 months: No Aproximately how many cigarettes per day: 0 - Alcohol/Substance Use Hx Alcohol Use: No - Social History ADL: Independent History of Recent Travel: Yes (in [facility] 2 days ago) Home Medications - Allergies Allergies/Adverse Reactions: Allergies Allergy/AdvReac Type Severity Reaction Status Date / Time Iodinated Contrast Media Allergy Hives Verified 12/05/18 11:49 [Iodinated Contrast Media - IV Dye] - Home Medications Home Medications: Ambulatory Orders Levetiracetam [Keppra] 1,000 mg PO BID 03/17/15 Family Disease History - Family Disease History Family Disease History: Diabetes: Father, Mother, Heart Disease: Father, Mother Review of Systems - Review of Systems Constitutional: reports: Chills, Fever, Lethargy, Loss of Appetite, Malaise, Weakness Eyes: reports: Blurred Vision, Photophobia HENT: reports: No Symptoms Neck: reports: Decreased ROM, Pain on Movement, Stiffness Cardiovascular: reports: Palpitations Respiratory: reports: SOB, SOB on Exertion Genitourinary: reports: No Symptoms Breasts: reports: No Symptoms Reported Musculoskeletal: reports: Back Pain, Extremity Pain, Joint Pain, Muscle Pain Integumentary: reports: No Symptoms Neurological: reports: Dizziness, Headache, Weakness Endocrine: reports: No Symptoms Hematology/Lymphatic: reports: No Symptoms Psychiatric: reports: No Symptoms Physical Examination Vital Signs: Vital Signs Temperature 102.5 F H 12/05/18 18:32 Pulse Rate 88 12/05/18 18:32 Respiratory Rate 20 12/05/18 18:32 Blood Pressure 97/66 12/05/18 18:32 O2 Sat by Pulse Oximetry (%) 95 12/05/18 18:47 Constitutional: Yes: Well Nourished, Moderate Distress Eyes: Yes: WNL, Conjunctiva Clear, EOM Intact HENT: Yes: WNL, Atraumatic, Normocephalic Neck: Yes: WNL, Supple, Trachea Midline Cardiovascular: Yes: WNL, Tachycardia Respiratory: Yes: Regular, CTA Bilaterally, SOB on Exertion Gastrointestinal: Yes: WNL, Normal Bowel Sounds, Soft, Tenderness (to RLQ/LLQ) ...Rectal Exam: Yes: Deferred Renal/: Yes: WNL Breast(s): Yes: WNL Musculoskeletal: Yes: Muscle Pain, Muscle Weakness Extremities: Yes: WNL Edema: No Peripheral Pulses WNL: Yes Integumentary: Yes: WNL Neurological: Yes: WNL, Alert, Oriented, Cran Nerves II-XII Intact ...Motor Strength: WNL Psychiatric: Yes: WNL, Alert, Oriented Labs: CBC, BMP 12/05/18 12:00 12/05/18 12:13 Imaging - Results Chest X-ray: Image Reviewed (NO EFFSUION/INFILTARTES) Cat Scan: Report Reviewed (no acute pathology) Problem List - Problems (1) Dengue fever Assessment/Plan: patient with recent contact in household with multiple people with know Dengue fever, multiple bites noted on lower extremeties presently refusing LP supportive therapy IVF fluid boluses given in ED c/w NS @ 125cc/hr while febrile tylenol PRN for T>100, avoid nsaids reglan/zofran PRN for n/v ID consult in AM-ED spoke with Dr Abdiel jones recs made c/w vanco/zosyn Code(s): A90 - DENGUE FEVER [CLASSICAL DENGUE] (2) Malaria Assessment/Plan: in endemic tropical area c/w supportive treatment, IVF, antiemetics, tylenol Code(s): B54 - UNSPECIFIED MALARIA (3) Abdominal pain Assessment/Plan: diffuse abdominal pain c/w antiemetics supportive therapy diet as tolerated LFTs not elevated, Hepatatis A serologies sent will add INR/PT to assess synthetic function If LFTs are elevated with send Hep B/C panel U/A negative Code(s): R10.9 - UNSPECIFIED ABDOMINAL PAIN Qualifiers: Abdominal location: left lower quadrant Qualified Code(s): R10.32 - Left lower quadrant pain (4) Epilepsy Assessment/Plan: c/w home dose keppra if nor able to take PO will convert to IV at 1:1 ratiio if mental status changes low threshold for Brain MRI & neurology consult Code(s): G40.909 - EPILEPSY, UNSP, NOT INTRACTABLE, WITHOUT STATUS EPILEPTICUS (5) Prophylactic measure Assessment/Plan: FEN IVF NS @ 125cc/hr monitor electolytes given vomiting diet as tolerated DVT given recent airtravel and inmobility with start heparin sq if becomes ambulatory tmrw can stop Dispo admit to tele bed full code discharge planning Code(s): Z29.9 - ENCOUNTER FOR PROPHYLACTIC MEASURES, UNSPECIFIED (6) Fever Code(s): R50.9 - FEVER, UNSPECIFIED (7) SIRS (systemic inflammatory response syndrome) Assessment/Plan: pt meets SIRS criteria, T 103, hr 130, WNC 3.2 no confirmed source of infection, CXR without effusion/infiltatrates blood & urine cx pending abx started in ED, will c/w f/u ID cosult in am cont to trend lactate supportive therapy Code(s): R65.10 - SIRS OF NON-INFECTIOUS ORIGIN W/O ACUTE ORGAN DYSFUNCTION Visit type - Emergency Visit Emergency Visit: Yes ED Registration Date: 12/05/18 Care time: The patient presented to the Emergency Department on the above date and was hospitalized for further evaluation of their emergent condition. - New Patient This patient is new to me today: Yes Date on this admission: 12/05/18 - Critical Care Critical Care patient: No
[2018-12-05] MEDS: levETIRAcetam 500 MG TABLET (FP) PO SCH (22:11)
[2018-12-05] MEDS: ACETAMINOPHEN 325 MG TABLET (FP) PO PRN (22:11)
[2018-12-06] MEDS ORDERED: VANCOMYCIN 1 GRAM (PRE-DOCKED) 1,000 MG/250 ML BAG IVPB ONE ×3 (03:00→18:12)
[2018-12-06 05:10] VITALS: BMI 28.3
[2018-12-06] MEDS: METOCLOPRAMIDE HCL INJECTION 10 MG/2 ML VIAL IVPUSH PRN ×2 (05:21→17:38)
[2018-12-06] MEDS: ACETAMINOPHEN 325 MG TABLET (FP) PO PRN ×2 (06:20→17:42)
[2018-12-06 08:08] LABS: BASO % 0.6 % (0-2.0); LYMPH % 20.2 % (8-40); MCH 32.2 pg (25.7-33.7); MCHC 35.4 g/dl (32.0-36.0); MEAN PLT VOLUME 7.2 fl (7.5-11.1); MONO % 13.8 % (3.8-10.2); NEUT % 65.4 % (42.8-82.8); PLATELET COUNT 150 K/MM3 (134-434); RDW 12.3 % (11.6-15.6); WHITE BLOOD COUNT 2.5 K/mm3 (4.0-10.0)
[2018-12-06 08:35] LABS: ALBUMIN 3.1 g/dl (3.4-5.0); BILIRUBIN,TOTAL 0.3 mg/dL (0.2-1); BLOOD UREA NITROGEN 7.4 mg/dL (7-18); CALCIUM 7.6 mg/dL (8.5-10.1); CREATININE 0.8 mg/dL (0.55-1.3); POTASSIUM 3.4 mmol/L (3.5-5.1); TOT PROT 6.3 g/dl (6.4-8.2)
[2018-12-06] MEDS: levETIRAcetam 500 MG TABLET (FP) PO SCH ×2 (09:21→21:00)
[2018-12-06] MEDS ORDERED: CEFTRIAXONE 2 GM in DEXTROSE 5%-WATER 100 ML IVPB ONE (10:00)
[2018-12-06] MEDS ORDERED: DEXTROSE 5%-WATER 100 ML IVPB ONE (10:09)
--- NOTE | 2018-12-06 11:37 | PN ---
Progress Note, Physician History of Present Illness: Patient is a 48 year old female with a significant past medical history of epilepsy, migraines. She presents to the ED on 12/05/18 with c/o of fever, general malaise, body aches and headaches since 12/04/18. She had a recently traveled to [place] and returned to 2 days ago. On admission, she stated she was bitten by mosquitos. She also states that there were 4 people that she knew in the area that were sick with Dengue Fever. She is being followed by ID and discussed on starting patient on doxycline, vanco and zosyn pending blood cultures. - Current Medication List Current Medications: Active Medications Acetaminophen (Tylenol -) 650 mg PO Q6H PRN PRN Reason: FEVER Last Admin: 12/06/18 06:20 Dose: 650 mg Sodium Chloride (Normal Saline -) 1,000 mls @ 125 mls/hr IV ASDIR RENATO Last Admin: 12/05/18 22:54 Dose: Not Given Levetiracetam (Keppra -) 1,000 mg PO BID RENATO Last Admin: 12/06/18 09:21 Dose: 1,000 mg Metoclopramide HCl (Reglan Injection -) 10 mg IVPUSH Q6H PRN PRN Reason: NAUSEA AND/OR VOMITING Last Admin: 12/06/18 05:21 Dose: 10 mg Ondansetron HCl (Zofran Injection) 4 mg IVPUSH Q6H PRN PRN Reason: NAUSEA AND/OR VOMITING Vancomycin HCl (Vancomycin (Pre-Docked)) 1,000 mg IVPB BID [facility]; Protocol - Objective Vital Signs: Vital Signs Temperature 100.4 F H 12/06/18 10:00 Pulse Rate 68 12/06/18 10:00 Respiratory Rate 20 12/06/18 10:00 Blood Pressure 99/54 L 12/06/18 10:00 O2 Sat by Pulse Oximetry (%) 95 12/06/18 09:00 Constitutional: Yes: Anxious Eyes: Yes: WNL, Sclera Icterus HENT: Yes: Atraumatic, Pharyngeal Erythema, Other (periorbital edema bilaterally ) Cardiovascular: Yes: Regular Rate and Rhythm Respiratory: Yes: Regular Gastrointestinal: Yes: Normal Bowel Sounds, Soft, Abdomen, Obese ...Rectal Exam: Yes: Deferred Genitourinary: Yes: WNL Breast(s): Yes: WNL Musculoskeletal: Yes: WNL Extremities: Yes: WNL Edema: No Integumentary: Yes: WNL Neurological: Yes: Lethargy ...Motor Strength: WNL Labs: CBC, BMP 12/06/18 07:38 12/06/18 07:38 INR, PTT INR 1.13 (0.83-1.09) H 12/05/18 12:00 - ....Imaging Chest X-ray: Report Reviewed Problem List - Problems (1) Severe sepsis Assessment/Plan: Patient presents with fever, tachycardia, leukopenia and lactic acidosis started on zosyn, vanco and doxycline pending blood and urine cultures no confirmed source of infection, CXR without effusion/infiltrates supportive therapy Code(s): A41.9 - SEPSIS, UNSPECIFIED ORGANISM; R65.20 - SEVERE SEPSIS WITHOUT SEPTIC SHOCK (2) Epilepsy Assessment/Plan: on keppra bid Code(s): G40.909 - EPILEPSY, UNSP, NOT INTRACTABLE, WITHOUT STATUS EPILEPTICUS (3) Dengue fever Assessment/Plan: patient with recent contact in household with multiple people with know Dengue fever, multiple bites noted on lower extremeties presently refusing LP. will consult neuro for further recommendations. on vanco, zosyn, doxycyline. blood smear, lymes and viral workup up per ID is pending Code(s): A90 - DENGUE FEVER [CLASSICAL DENGUE] (4) Fever Assessment/Plan: on tylenol prn. Code(s): R50.9 - FEVER, UNSPECIFIED (5) Malaria Assessment/Plan: in endemic tropical area c/w supportive treatment, IVF, antiemetics, tylenol Code(s): B54 - UNSPECIFIED MALARIA (6) Periorbital edema Assessment/Plan: no airway compromise give solumedrol 60mg x 1 dose Code(s): R60.0 - LOCALIZED EDEMA (7) Prophylactic measure Assessment/Plan: fen ns @ 125 monitor electrolytes low salt diet heparin tid Code(s): Z29.9 - ENCOUNTER FOR PROPHYLACTIC MEASURES, UNSPECIFIED Visit type - Emergency Visit Emergency Visit: Yes ED Registration Date: 12/05/18 Care time: The patient presented to the Emergency Department on the above date and was hospitalized for further evaluation of their emergent condition. - New Patient This patient is new to me today: Yes Date on this admission: 12/06/18 - Critical Care Critical Care patient: No - Discharge Referral Referred to [facility] Med [facility].C.: No
[2018-12-06] MEDS ORDERED: ACETAMINOPHEN 1000 MG/100 ML VIAL (NON FORMULARY) IVPB ONE ×2 (12:17→12:45)
--- NOTE | 2018-12-06 13:10 | CON.ID ---
Consult Consult Specialty:: infectious diseases Referred by:: Reason for Consultation:: fever,weakness - History of Present Illness Chief Complaint: fever,weakness History of Present Illness: 48yo F with PMH of Epilepsy, Migraines presenting to ED with family with complaints of fever, body aches and headache since yesterday. Pt returned from a 15 day trip to [place] yesterday and since the return she has had fevers, body aches and headache. She took 4 Advil yesterday with out much relief and 2 Motrin today. She says she was bitten by mosquitos. She also states that there were 4 people that she knew in the area that were sick with Dengue Fever. She states that the headache is all around her head, associated with photophobia and pain in her neck. She also endorses abdominal pain (only when touched), nausea, joint pains. She also notes dysuria, frequency and urgency. Denies rashes, diarrhea, constipation, vomiting, cough, sore throat, congestion. Denies history of STDs, Herpes, HIV. 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 - Past Surgical History Past Surgical History: Yes: Hysterectomy, Appendectomy - Alcohol/Substance Use Hx Alcohol Use: No - Smoking History Smoking history: Never smoked Have you smoked in the past 12 months: No Aproximately how many cigarettes per day: 0 - Social History ADL: Independent History of Recent Travel: Yes (in [place] 2 days ago) Home Medications - Allergies Allergies/Adverse Reactions: Allergies Allergy/AdvReac Type Severity Reaction Status Date / Time Iodinated Contrast Media Allergy Hives Verified 12/05/18 11:49 [Iodinated Contrast Media - IV Dye] - Home Medications Home Medications: Ambulatory Orders RX: Levetiracetam [Keppra] 1,000 mg PO BID 03/17/15 Family Disease History - Family Disease History Family Disease History: Diabetes: Father, Mother, Heart Disease: Father, Mother Review of Systems - Review of Systems Constitutional: reports: Chills, Fever Eyes: reports: No Symptoms HENT: reports: No Symptoms Neck: reports: No Symptoms Cardiovascular: reports: No Symptoms Respiratory: reports: No Symptoms Gastrointestinal: reports: No Symptoms Genitourinary: reports: No Symptoms Musculoskeletal: reports: Other Integumentary: reports: No Symptoms Neurological: reports: Headache Endocrine: reports: No Symptoms Hematology/Lymphatic: reports: No Symptoms Psychiatric: reports: No Symptoms Physical Exam Vital Signs: Vital Signs Temperature 100.4 F H 12/06/18 10:00 Pulse Rate 68 12/06/18 10:00 Respiratory Rate 20 12/06/18 10:00 Blood Pressure 99/54 L 12/06/18 10:00 O2 Sat by Pulse Oximetry (%) 95 12/06/18 09:00 Constitutional: Yes: Well Nourished, Calm, Moderate Distress Eyes: Yes: Conjunctiva Clear HENT: Yes: Atraumatic, Normocephalic Neck: Yes: Supple, Trachea Midline Cardiovascular: Yes: Regular Rate and Rhythm Respiratory: Yes: Regular, CTA Bilaterally Gastrointestinal: Yes: Normal Bowel Sounds, Soft Musculoskeletal: Yes: WNL Extremities: Yes: WNL Neurological: Yes: Alert, Oriented Psychiatric: Yes: Alert, Oriented Labs: CBC, BMP 12/06/18 07:38 12/06/18 07:38 Imaging - Results Chest X-ray: Report Reviewed, Image Reviewed Cat Scan: Report Reviewed, Image Reviewed Assessment/Plan Problem List - Problems (1) Dengue fever Code(s): A90 - DENGUE FEVER [CLASSICAL DENGUE] (2) Malaria Code(s): B54 - UNSPECIFIED MALARIA (3) Abdominal pain Code(s): R10.9 - UNSPECIFIED ABDOMINAL PAIN Qualifiers: Abdominal location: left lower quadrant Qualified Code(s): R10.32 - Left lower quadrant pain (4) Epilepsy Code(s): G40.909 - EPILEPSY, UNSP, NOT INTRACTABLE, WITHOUT STATUS EPILEPTICUS (5) Prophylactic measure Code(s): Z29.9 - ENCOUNTER FOR PROPHYLACTIC MEASURES, UNSPECIFIED (6) Fever Code(s): R50.9 - FEVER, UNSPECIFIED (7) SIRS (systemic inflammatory response syndrome Code(s): R65.10 - SIRS OF NON-INFECTIOUS ORIGIN W/O ACUTE ORGAN DYSFUNCTION plan looking at patients history i have suspicion that patient might be having dengue will order parasite smear r/o malaraia await for all cx reports will hold off on abx close watch monitor wbc platelets and for any rash hydration rest as per the team
[2018-12-06] MEDS: ONDANSETRON 4 MG/2 ML VIAL IVPUSH PRN (15:33)
[2018-12-06] MEDS: ACETAMINOPHEN/CAFFEINE/BUTALBITAL 1 TAB PO PRN (15:55)
--- NOTE | 2018-12-06 16:17 | EKG ---
Test Reason : Blood Pressure : / mmHG Vent. Rate : 108 BPM Atrial Rate : 108 BPM P-R Int : 166 ms QRS Dur : 076 ms QT Int : 336 ms P-R-T Axes : 036 066 060 degrees QTc Int : 450 ms SINUS TACHYCARDIA OTHERWISE NORMAL ECG WHEN COMPARED WITH ECG OF 27-APR-2018 09:23, NO SIGNIFICANT CHANGE WAS FOUND Confirmed by MD KELLY, BREN ([id number]) on 12/06/2018 4:16:56 PM Referred By: Confirmed By:BREN MENDOZA MD
[2018-12-06] MEDS ORDERED: morphine CARPU-JECT 2 MG/1 ML DISP.SYRIN IVPUSH PRN (17:39)
[2018-12-06] MEDS ORDERED: MORPHINE SULFATE 2 MG/ML VIAL IVPUSH PRN (17:43)
[2018-12-06] MEDS ORDERED: PIPERACILLIN/TAZOBACTAM 3.375 GM VIAL IVPB ONE (18:28)
[2018-12-06] MEDS ORDERED: DEXTROSE 5%-WATER - 50 ML IVPB ONE (18:28)
[2018-12-06] MEDS: PIPERACILLIN/TAZOB 3.375 GM 3.375 GM in DEXTROSE 5%-WATER - 50 ML IVPB SCH (18:34)
[2018-12-06] MEDS ORDERED: methylPREDNISolone NA SUCC 40 MG/1 ML VIAL IVPUSH ONE (20:02)
[2018-12-06] MEDS: DOXYCYCLINE INJECTION 100 MG in DEXTROSE 5%-WATER 100 ML IVPB SCH (21:00)
[2018-12-06] MEDS: HEPARIN NA (PORCINE) 5,000 UNITS/ML 1ML VIAL SQ SCH (21:36)
[2018-12-06] MEDS: SODIUM CHLORIDE 1,000 ML IV SCH (22:47)
[2018-12-07] MEDS ORDERED: PIPERACILLIN/TAZOBACTAM 3.375 GM VIAL IVPB ONE ×2 (00:37→09:21)
[2018-12-07] MEDS ORDERED: DEXTROSE 5%-WATER - 50 ML IVPB ONE ×2 (00:38→09:21)
[2018-12-07] MEDS: PIPERACILLIN/TAZOB 3.375 GM 3.375 GM in DEXTROSE 5%-WATER - 50 ML IVPB SCH ×2 (02:47→09:40)
[2018-12-07] MEDS: ACETAMINOPHEN/CAFFEINE/BUTALBITAL 1 TAB PO PRN ×3 (06:00→23:58)
[2018-12-07] MEDS: HEPARIN NA (PORCINE) 5,000 UNITS/ML 1ML VIAL SQ SCH ×3 (06:00→21:53)
[2018-12-07] MEDS: SODIUM CHLORIDE 1,000 ML IV SCH ×3 (06:10→23:53)
[2018-12-07] MEDS: ACETAMINOPHEN 325 MG TABLET (FP) PO PRN (08:49)
[2018-12-07] MEDS ORDERED: PT OWN MED DRAWER 7, Y5N ONE (09:22)
[2018-12-07 09:31] LABS: BASO % 0.3 % (0-2.0); HEMATOCRIT 35.3 % (32.4-45.2); HEMOGLOBIN 12.3 GM/dL (10.7-15.3); LYMPH % 21.1 % (8-40); MCH 31.8 pg (25.7-33.7); MCHC 34.8 g/dl (32.0-36.0); MEAN CELL VOLUME 91.3 fl (80-96); MEAN PLT VOLUME 7.9 fl (7.5-11.1); MONO % 4.8 % (3.8-10.2); NEUT % 73.8 % (42.8-82.8); PLATELET COUNT 120 K/MM3 (134-434); RBC 3.87 M/mm3 (3.60-5.2); RDW 11.9 % (11.6-15.6); WHITE BLOOD COUNT 2.4 K/mm3 (4.0-10.0)
[2018-12-07] MEDS: levETIRAcetam 500 MG TABLET (FP) PO SCH ×2 (09:40→21:54)
--- NOTE | 2018-12-07 09:48 | CONSULT ---
Consult - text type - Consultation Consultation Note: Neurology Chief Complaint: body aches & body aches x 2 days, fever x 1 day. Recently in [place]-2 days ago History of Present Illness: 48yo F with PMH of Epilepsy, Migraines presenting to ED with family with complaints of fever, body aches and headache since yesterday. Pt returned from a 15 day trip to [place] yesterday and since the return she has had fevers, body aches and headache. She took 4 Advil yesterday with out much relief and 2 Motrin today. She says she was bitten by mosquitos. She also states that there were 4 people that she knew in the area that were sick with Dengue Fever. She states that the headache is all around her head, associated with photophobia and pain in her neck. She also endorses abdominal pain (only when touched), nausea, joint pains. She also notes dysuria, frequency and urgency. Denies rashes, diarrhea, constipation, vomiting, cough, sore throat, congestion. Denies history of STDs, Herpes, HIV. Consulted for headache which she reports h/ o migraines for over 12 years but this headache is different more diffuse and achy. Likely tension type due to underlying infection. She is on Keppra for seizures which can be continued. Will add topamax which may help with headache though may not get better until infection subsides. 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 - Past Surgical History Past Surgical History: Yes: Hysterectomy, Appendectomy - Smoking History Smoking history: Never smoked Have you smoked in the past 12 months: No Aproximately how many cigarettes per day: 0 - Alcohol/Substance Use Hx Alcohol Use: No - Social History ADL: Independent History of Recent Travel: [facility] Family; HTN Home Medications - Allergies Allergies/Adverse Reactions: Allergies Allergy/AdvReac Type Severity Reaction Status Date / Time Iodinated Contrast Media Allergy Hives Verified 12/05/18 11:49 [Iodinated Contrast Media - IV Dye] - Home Medications Home Medications: Ambulatory Orders Levetiracetam [Keppra] 1,000 mg PO BID 03/17/15 Active Medications Acetaminophen (Tylenol -) 650 mg PO Q6H PRN PRN Reason: FEVER Last Admin: 12/07/18 08:49 Dose: 650 mg Acetaminophen/Butalbital/Caffeine (Fioricet -) 1 tablet PO Q6H PRN PRN Reason: HEADACHE Last Admin: 12/07/18 06:00 Dose: 1 tablet Heparin Sodium (Porcine) (Heparin -) 5,000 unit SQ TID [facility] Last Admin: 12/07/18 06:00 Dose: 5,000 unit Sodium Chloride (Normal Saline -) 1,000 mls @ 125 mls/hr IV ASDIR RENATO Last Admin: 12/07/18 06:10 Dose: 125 mls/hr Doxycycline Hyclate 100 mg/ (Dextrose) 100 mls @ 50 mls/hr IVPB BID RENATO Last Admin: 12/06/18 21:00 Dose: 50 mls/hr Piperacillin Sod/Tazobactam (Sod 3.375 gm/ Dextrose) 50 mls @ 100 mls/hr IVPB Q8H-IV RENATO; Protocol Stop: 12/07/18 18:14 Last Admin: 12/07/18 09:40 Dose: 100 mls/hr Levetiracetam (Keppra -) 1,000 mg PO BID [facility] Last Admin: 12/07/18 09:40 Dose: 1,000 mg Metoclopramide HCl (Reglan Injection -) 10 mg IVPUSH Q6H PRN PRN Reason: NAUSEA AND/OR VOMITING Last Admin: 12/06/18 17:38 Dose: 10 mg Morphine Sulfate (Morphine Sulfate) 2 mg IVPUSH Q4H PRN PRN Reason: PAIN LEVEL 7 - 10 Last Admin: 12/06/18 17:48 Dose: 2 mg Ondansetron HCl (Zofran Injection) 4 mg IVPUSH Q6H PRN PRN Reason: NAUSEA AND/OR VOMITING Last Admin: 12/06/18 15:33 Dose: 4 mg Family Disease History - Family Disease History Family Disease History: Diabetes: Father, Mother, Heart Disease: Father, Mother Review of Systems - Review of Systems Constitutional: reports: Chills, Fever, Lethargy, Loss of Appetite, Malaise, Weakness Eyes: reports: Blurred Vision, Photophobia HENT: reports: No Symptoms Neck: reports: Decreased ROM, Pain on Movement, Stiffness Cardiovascular: reports: Palpitations Respiratory: reports: SOB, SOB on Exertion Genitourinary: reports: No Symptoms Breasts: reports: No Symptoms Reported Musculoskeletal: reports: Back Pain, Extremity Pain, Joint Pain, Muscle Pain Integumentary: reports: No Symptoms Neurological: reports: Dizziness, Headache, Weakness Endocrine: reports: No Symptoms Hematology/Lymphatic: reports: No Symptoms Psychiatric: reports: No Symptoms Physical Examination Vital Signs: Vital Signs Temperature 102.5 F H 12/05/18 18:32 Pulse Rate 88 12/05/18 18:32 Respiratory Rate 20 12/05/18 18:32 Blood Pressure 97/66 12/05/18 18:32 O2 Sat by Pulse Oximetry (%) 95 12/05/18 18:47 Constitutional: Yes: Well Nourished, Moderate Distress Eyes: Yes: WNL, Conjunctiva Clear, EOM Intact HENT: Yes: WNL, Atraumatic, Normocephalic Neck: Yes: WNL, Supple, Trachea Midline Cardiovascular: Yes: WNL, Tachycardia Respiratory: Yes: Regular, CTA Bilaterally, SOB on Exertion Gastrointestinal: Yes: WNL, Normal Bowel Sounds, Soft, Tenderness (to RLQ/LLQ) ...Rectal Exam: Yes: Deferred Renal/: Yes: WNL Breast(s): Yes: WNL Musculoskeletal: Yes: Muscle Pain, Muscle Weakness Extremities: Yes: WNL Edema: No Peripheral Pulses WNL: Yes Integumentary: Yes: WNL Neurological: AWake, alert, conversive, moves all extremities equally, sensory intact, gait defered CBCD WBC 2.4 K/mm3 (4.0-10.0) L 12/07/18 09:13 RBC 3.87 M/mm3 (3.60-5.2) 12/07/18 09:13 Hgb 12.3 GM/dL (10.7-15.3) 12/07/18 09:13 Hct 35.3 % (32.4-45.2) 12/07/18 09:13 MCV 91.3 fl (80-96) 12/07/18 09:13 MCHC 34.8 g/dl (32.0-36.0) 12/07/18 09:13 RDW 11.9 % (11.6-15.6) 12/07/18 09:13 Plt Count 120 K/MM3 (134-434) L 12/07/18 09:13 MPV 7.9 fl (7.5-11.1) 12/07/18 09:13 CMP Sodium 137 mmol/L (136-145) 12/06/18 07:38 Potassium 3.4 mmol/L (3.5-5.1) L 12/06/18 07:38 Chloride 108 mmol/L (98-107) H 12/06/18 07:38 Carbon Dioxide 21 mmol/L (21-32) 12/06/18 07:38 Anion Gap 8 MMOL/L (8-16) 12/06/18 07:38 BUN 7.4 mg/dL (7-18) 12/06/18 07:38 Creatinine 0.8 mg/dL (0.55-1.3) 12/06/18 07:38 Random Glucose 106 mg/dL (74-106) 12/06/18 07:38 Calcium 7.6 mg/dL (8.5-10.1) L 12/06/18 07:38 Total Bilirubin 0.3 mg/dL (0.2-1) 12/06/18 07:38 AST 44 U/L (15-37) H 12/06/18 07:38 ALT 57 U/L (13-61) 12/06/18 07:38 Alkaline Phosphatase 56 U/L (45-117) 12/06/18 07:38 Total Protein 6.3 g/dl (6.4-8.2) L 12/06/18 07:38 Albumin 3.1 g/dl (3.4-5.0) L 12/06/18 07:38 CARDIAC ENZYMES Troponin I < 0.02 ng/ml (0.00-0.05) 12/05/18 12:13 Imaging - Results Chest X-ray: Image Reviewed (NO EFFSUION/INFILTARTES) Cat Scan: Report Reviewed (no acute pathology) Plan 48yo F with PMH of Epilepsy, Migraines presenting to ED with family with complaints of fever, body aches and headache since yesterday. Pt returned from a 15 day trip to [place] yesterday and since the return she has had fevers, body aches and headache. She took 4 Advil yesterday with out much relief and 2 Motrin today. She says she was bitten by mosquitos. She also states that there were 4 people that she knew in the area that were sick with Dengue Fever. She states that the headache is all around her head, associated with photophobia and pain in her neck. She also endorses abdominal pain (only when touched), nausea, joint pains. She also notes dysuria, frequency and urgency. Denies rashes, diarrhea, constipation, vomiting, cough, sore throat, congestion. Denies history of STDs, Herpes, HIV. Consulted for headache which she reports h/ o migraines for over 12 years but this headache is different more diffuse and achy. Likely tension type due to underlying infection. She is on Keppra for seizures which can be continued. Will add topamax which may help with headache though may not get better until infection subsides. COntinue mgmt for Malaria vs Babesia, discussed with ID doctor. Supportive care, IV abx as needed. Cognitive rest recommended. Continue home seizure medications. Maintain adequate hydration.
[2018-12-07 10:11] LABS: ALBUMIN 3.2 g/dl (3.4-5.0); BILIRUBIN,TOTAL 0.3 mg/dL (0.2-1); BLOOD UREA NITROGEN 7.7 mg/dL (7-18); CREATININE 0.8 mg/dL (0.55-1.3); MAGNESIUM 2.1 mg/dL (1.8-2.4); POTASSIUM 3.7 mmol/L (3.5-5.1); TOT PROT 6.7 g/dl (6.4-8.2)
--- NOTE | 2018-12-07 10:28 | PN ---
Progress Note, Physician History of Present Illness: patient stable afebrile this morning spiked fevers yesterday awaiting for the parasite smear - Current Medication List Current Medications: Active Medications Acetaminophen (Tylenol -) 650 mg PO Q6H PRN PRN Reason: FEVER Last Admin: 12/07/18 08:49 Dose: 650 mg Acetaminophen/Butalbital/Caffeine (Fioricet -) 1 tablet PO Q6H PRN PRN Reason: HEADACHE Last Admin: 12/07/18 06:00 Dose: 1 tablet Heparin Sodium (Porcine) (Heparin -) 5,000 unit SQ TID [facility] Last Admin: 12/07/18 06:00 Dose: 5,000 unit Sodium Chloride (Normal Saline -) 1,000 mls @ 125 mls/hr IV ASDIR RENATO Last Admin: 12/07/18 06:10 Dose: 125 mls/hr Doxycycline Hyclate 100 mg/ (Dextrose) 100 mls @ 50 mls/hr IVPB BID [facility] Last Admin: 12/06/18 21:00 Dose: 50 mls/hr Piperacillin Sod/Tazobactam (Sod 3.375 gm/ Dextrose) 50 mls @ 100 mls/hr IVPB Q8H-IV RENATO; Protocol Stop: 12/07/18 18:14 Last Admin: 12/07/18 09:40 Dose: 100 mls/hr Levetiracetam (Keppra -) 1,000 mg PO BID [facility] Last Admin: 12/07/18 09:40 Dose: 1,000 mg Metoclopramide HCl (Reglan Injection -) 10 mg IVPUSH Q6H PRN PRN Reason: NAUSEA AND/OR VOMITING Last Admin: 12/06/18 17:38 Dose: 10 mg Morphine Sulfate (Morphine Sulfate) 2 mg IVPUSH Q4H PRN PRN Reason: PAIN LEVEL 7 - 10 Last Admin: 12/06/18 17:48 Dose: 2 mg Ondansetron HCl (Zofran Injection) 4 mg IVPUSH Q6H PRN PRN Reason: NAUSEA AND/OR VOMITING Last Admin: 12/06/18 15:33 Dose: 4 mg Topiramate (Topamax -) 25 mg PO BID [facility] - Objective Vital Signs: Vital Signs Temperature 99 F 12/07/18 07:00 Pulse Rate 46 L 12/07/18 07:00 Respiratory Rate 18 12/07/18 07:00 Blood Pressure 128/70 12/07/18 07:00 O2 Sat by Pulse Oximetry (%) 94 L 12/06/18 21:00 Constitutional: Yes: No Distress, Calm Cardiovascular: Yes: Regular Rate and Rhythm Respiratory: Yes: Regular, CTA Bilaterally Gastrointestinal: Yes: Normal Bowel Sounds, Soft Musculoskeletal: Yes: WNL Extremities: Yes: WNL Neurological: Yes: Alert, Oriented Psychiatric: Yes: Alert, Oriented Labs: CBC, BMP 12/07/18 09:13 12/07/18 09:13 INR, PTT INR 1.13 (0.83-1.09) H 12/05/18 12:00 Assessment/Plan Problem List - Problems (1) Dengue fever Code(s): A90 - DENGUE FEVER [CLASSICAL DENGUE] (2) Malaria Code(s): B54 - UNSPECIFIED MALARIA (3) Abdominal pain Code(s): R10.9 - UNSPECIFIED ABDOMINAL PAIN Qualifiers: Abdominal location: left lower quadrant Qualified Code(s): R10.32 - Left lower quadrant pain (4) Epilepsy Code(s): G40.909 - EPILEPSY, UNSP, NOT INTRACTABLE, WITHOUT STATUS EPILEPTICUS (5) Prophylactic measure Code(s): Z29.9 - ENCOUNTER FOR PROPHYLACTIC MEASURES, UNSPECIFIED (6) Fever Code(s): R50.9 - FEVER, UNSPECIFIED (7) SIRS (systemic inflammatory response syndrome Code(s): R65.10 - SIRS OF NON-INFECTIOUS ORIGIN W/O ACUTE ORGAN DYSFUNCTION plan will continue to watch only on doxy await for the smear cx to be back monitor fevers rest as per the team close watch on platelets
--- NOTE | 2018-12-07 10:36 | PN ---
Progress Note, Physician History of Present Illness: Patient is a 48 year old female with a significant past medical history of epilepsy, migraines. She presents to the ED on 12/05/18 with c/o of fever, general malaise, body aches and headaches since 12/04/18. She had a recently traveled to [place] and returned to 2 days ago. On admission, she stated she was bitten by mosquitos. She also states that there were 4 people that she knew in the area that were sick with Dengue Fever. She is being followed by ID and discussed on starting patient on doxycline, vanco and zosyn pending blood cultures. She was given solumedrol 60mg x 1 last night for periorbital edema and mild facial swelling. Todays lab with leukopenia, but not neutropenic (anc 1800), her platelets are trending down. - Current Medication List Current Medications: Active Medications Acetaminophen (Tylenol -) 650 mg PO Q6H PRN PRN Reason: FEVER Last Admin: 12/07/18 08:49 Dose: 650 mg Acetaminophen/Butalbital/Caffeine (Fioricet -) 1 tablet PO Q6H PRN PRN Reason: HEADACHE Last Admin: 12/07/18 06:00 Dose: 1 tablet Heparin Sodium (Porcine) (Heparin -) 5,000 unit SQ TID [facility] Last Admin: 12/07/18 06:00 Dose: 5,000 unit Sodium Chloride (Normal Saline -) 1,000 mls @ 125 mls/hr IV ASDIR [facility] Last Admin: 12/07/18 06:10 Dose: 125 mls/hr Doxycycline Hyclate 100 mg/ (Dextrose) 100 mls @ 50 mls/hr IVPB BID [facility] Last Admin: 12/06/18 21:00 Dose: 50 mls/hr Piperacillin Sod/Tazobactam (Sod 3.375 gm/ Dextrose) 50 mls @ 100 mls/hr IVPB Q8H-IV [facility]; Protocol Stop: 12/07/18 18:14 Last Admin: 12/07/18 09:40 Dose: 100 mls/hr Levetiracetam (Keppra -) 1,000 mg PO BID [facility] Last Admin: 12/07/18 09:40 Dose: 1,000 mg Metoclopramide HCl (Reglan Injection -) 10 mg IVPUSH Q6H PRN PRN Reason: NAUSEA AND/OR VOMITING Last Admin: 12/06/18 17:38 Dose: 10 mg Morphine Sulfate (Morphine Sulfate) 2 mg IVPUSH Q4H PRN PRN Reason: PAIN LEVEL 7 - 10 Last Admin: 12/06/18 17:48 Dose: 2 mg Ondansetron HCl (Zofran Injection) 4 mg IVPUSH Q6H PRN PRN Reason: NAUSEA AND/OR VOMITING Last Admin: 12/06/18 15:33 Dose: 4 mg Topiramate (Topamax -) 25 mg PO BID [facility] - Objective Vital Signs: Vital Signs Temperature 99 F 12/07/18 07:00 Pulse Rate 46 L 12/07/18 07:00 Respiratory Rate 18 12/07/18 07:00 Blood Pressure 128/70 12/07/18 07:00 O2 Sat by Pulse Oximetry (%) 94 L 12/06/18 21:00 Constitutional: Yes: Well Nourished, No Distress, Calm HENT: Yes: Atraumatic Cardiovascular: Yes: Regular Rate and Rhythm Respiratory: Yes: CTA Bilaterally Gastrointestinal: Yes: Normal Bowel Sounds ...Rectal Exam: Yes: Deferred Genitourinary: Yes: WNL Musculoskeletal: Yes: WNL Extremities: Yes: WNL Edema: No Wound/Incision: Yes: Clean/Dry (multiple mosquito bites on inner ankles.) Neurological: Yes: WNL, Alert, Oriented Psychiatric: Yes: WNL Labs: CBC, BMP 12/07/18 09:13 12/07/18 09:13 INR, PTT INR 1.13 (0.83-1.09) H 12/05/18 12:00 Problem List - Problems (1) Severe sepsis Assessment/Plan: Patient presents with fever, tachycardia, leukopenia and lactic acidosis started on zosyn, vanco and doxycline pending blood and urine cultures. Seen by ID today, antibiotics to be placed on hold. awaiting blood smears. Doxy to be changed to oral no confirmed source of infection, CXR without effusion/infiltrates supportive therapy, continue IVF hydration Code(s): A41.9 - SEPSIS, UNSPECIFIED ORGANISM; R65.20 - SEVERE SEPSIS WITHOUT SEPTIC SHOCK (2) Epilepsy Assessment/Plan: on keppra bid seen and followed by neuro. recommendations appreciated. Code(s): G40.909 - EPILEPSY, UNSP, NOT INTRACTABLE, WITHOUT STATUS EPILEPTICUS (3) Dengue fever Assessment/Plan: patient with recent contact in household with multiple people with know Dengue fever, multiple bites noted on lower extremities presently refusing LP. blood smear, lymes and viral workup up per ID is pending monitor fever curve Code(s): A90 - DENGUE FEVER [CLASSICAL DENGUE] (4) Fever Assessment/Plan: on tylenol prn. Code(s): R50.9 - FEVER, UNSPECIFIED (5) Malaria Assessment/Plan: in endemic tropical area c/w supportive treatment, IVF, antiemetics, tylenol Code(s): B54 - UNSPECIFIED MALARIA (6) Periorbital edema Assessment/Plan: no airway compromise given solumedrol 60mg x 1 dose with good results as periorbital edema resolved. Code(s): R60.0 - LOCALIZED EDEMA (7) Thrombocytopenia Assessment/Plan: platelets 90 today monitor daily on doxycycline Code(s): D69.6 - THROMBOCYTOPENIA, UNSPECIFIED (8) Prophylactic measure Assessment/Plan: fen ns @ 125 monitor electrolytes low salt diet heparin tid Code(s): Z29.9 - ENCOUNTER FOR PROPHYLACTIC MEASURES, UNSPECIFIED Visit type - Emergency Visit Emergency Visit: Yes ED Registration Date: 12/05/18 Care time: The patient presented to the Emergency Department on the above date and was hospitalized for further evaluation of their emergent condition. - New Patient This patient is new to me today: No - Critical Care Critical Care patient: No - Discharge Referral Referred to [facility] Med P.C.: No
[2018-12-07] MEDS: DOXYCYCLINE INJECTION 100 MG in DEXTROSE 5%-WATER 100 ML IVPB SCH (11:36)
[2018-12-07] MEDS: TOPIRAMATE 25 MG TABLET (FP) PO SCH ×2 (12:12→21:54)
[2018-12-07] MEDS ORDERED: ACETAMINOPHEN 1000 MG/100 ML VIAL (NON FORMULARY) IVPB ONE (13:35)
[2018-12-07] MEDS: METOCLOPRAMIDE HCL INJECTION 10 MG/2 ML VIAL IVPUSH PRN (14:01)
[2018-12-07] MEDS: DOXYCYCLINE HYCLATE 100 MG CAPSULE PO SCH (17:29)
[2018-12-08] MEDS: ONDANSETRON 4 MG/2 ML VIAL IVPUSH PRN ×2 (05:38→23:10)
[2018-12-08] MEDS: HEPARIN NA (PORCINE) 5,000 UNITS/ML 1ML VIAL SQ SCH ×3 (06:42→22:30)
[2018-12-08] MEDS: ACETAMINOPHEN 325 MG TABLET (FP) PO PRN ×3 (07:29→23:07)
--- NOTE | 2018-12-08 08:12 | PN ---
Progress Note (short form) - Note Progress Note: Neurology Chief Complaint: body aches & body aches x 2 days, fever x 1 day. Recently in [place]-2 days ago History of Present Illness: 48yo F with PMH of Epilepsy, Migraines presenting to ED with family with complaints of fever, body aches and headache since day prior to admission. Pt returned from a 15 day trip to [place] day prior to admission and since the return , she has had fevers, body aches and headache. She took 4 Advil day prior to admission without much relief and 2 Motrin day of admission. She says she was bitten by mosquitos. She also states that there were 4 people that she knew in the area that were sick with Dengue Fever. She stated that the headache is all around her head, associated with photophobia and pain in her neck. She also endorsed abdominal pain (only when touched), nausea, joint pains. She also notes dysuria, frequency and urgency. Denies rashes, diarrhea, constipation, vomiting, cough, sore throat, congestion. Denied history of STDs, Herpes, HIV. Consulted for headache which she reports h/o migraines for over 12 years but this headache is different more diffuse and achy. Likely tension type due to underlying infection. patient on Keppra for herseizure disorder and this morning reportedly with atypical Involuntary movement possibly seizure although ddid not seem stereotypic. Discussed with nurse at bedside and hospitalist, Keppra increased to 1000 mg twice a day. Patient was given Ativan.. Noncontrast head CT reviewed and did not show any acute changes. Allergies Allergy/AdvReac Type Severity Reaction Status Date / Time Iodinated Contrast Media Allergy Hives Verified 12/05/18 11:49 [Iodinated Contrast Media - IV Dye] Active Medications Acetaminophen (Tylenol -) 650 mg PO Q6H PRN PRN Reason: FEVER Last Admin: 12/08/18 07:29 Dose: 650 mg Acetaminophen/Butalbital/Caffeine (Fioricet -) 1 tablet PO Q6H PRN PRN Reason: HEADACHE Last Admin: 12/07/18 23:58 Dose: 1 tablet Doxycycline Hyclate (Vibramycin -) 100 mg PO BID@1000,1800 [facility] Last Admin: 12/07/18 17:29 Dose: 100 mg Heparin Sodium (Porcine) (Heparin -) 5,000 unit SQ TID [facility] Last Admin: 12/08/18 06:42 Dose: 5,000 unit Sodium Chloride (Normal Saline -) 1,000 mls @ 125 mls/hr IV ASDIR [facility] Last Admin: 12/07/18 23:53 Dose: 125 mls/hr Levetiracetam (Keppra -) 1,000 mg PO BID [facility] Last Admin: 12/07/18 21:54 Dose: 1,000 mg Metoclopramide HCl (Reglan Injection -) 10 mg IVPUSH Q6H PRN PRN Reason: NAUSEA AND/OR VOMITING Last Admin: 12/07/18 14:01 Dose: 10 mg Morphine Sulfate (Morphine Sulfate) 2 mg IVPUSH Q4H PRN PRN Reason: PAIN LEVEL 7 - 10 Last Admin: 12/06/18 17:48 Dose: 2 mg Ondansetron HCl (Zofran Injection) 4 mg IVPUSH Q6H PRN PRN Reason: NAUSEA AND/OR VOMITING Last Admin: 12/08/18 05:38 Dose: 4 mg Topiramate (Topamax -) 25 mg PO BID [facility] Last Admin: 12/07/18 21:54 Dose: 25 mg Physical Examination Vital Signs: Vital Signs Period Temp Pulse Resp BP Sys/Davis Pulse Ox Last 24 Hr 98.0 F-98.6 F 43-47 18-18 100-133/59-72 93-93 Constitutional: Yes: Well Nourished, Moderate Distress Eyes: Yes: WNL, Conjunctiva Clear, EOM Intact HENT: Yes: WNL, Atraumatic, Normocephalic Neck: Yes: WNL, Supple, Trachea Midline Cardiovascular: Yes: WNL, Tachycardia Respiratory: Yes: Regular, CTA Bilaterally, SOB on Exertion Gastrointestinal: Yes: WNL, Normal Bowel Sounds, Soft, Tenderness (to RLQ/LLQ) ...Rectal Exam: Yes: Deferred Renal/: Yes: WNL Breast(s): Yes: WNL Musculoskeletal: Yes: Muscle Pain, Muscle Weakness Extremities: Yes: WNL Edema: No Peripheral Pulses WNL: Yes Integumentary: Yes: WNL Neurological: AWake, alert, conversive, moves all extremities equally, sensory intact, gait defered CBCD WBC 2.4 K/mm3 (4.0-10.0) L 12/07/18 09:13 RBC 3.87 M/mm3 (3.60-5.2) 12/07/18 09:13 Hgb 12.3 GM/dL (10.7-15.3) 12/07/18 09:13 Hct 35.3 % (32.4-45.2) 12/07/18 09:13 MCV 91.3 fl (80-96) 12/07/18 09:13 MCHC 34.8 g/dl (32.0-36.0) 12/07/18 09:13 RDW 11.9 % (11.6-15.6) 12/07/18 09:13 Plt Count 120 K/MM3 (134-434) L 12/07/18 09:13 MPV 7.9 fl (7.5-11.1) 12/07/18 09:13 CMP Sodium 137 mmol/L (136-145) 12/07/18 09:13 Potassium 3.7 mmol/L (3.5-5.1) 12/07/18 09:13 Chloride 103 mmol/L (98-107) 12/07/18 09:13 Carbon Dioxide 24 mmol/L (21-32) 12/07/18 09:13 Anion Gap 11 MMOL/L (8-16) 12/07/18 09:13 BUN 7.7 mg/dL (7-18) 12/07/18 09:13 Creatinine 0.8 mg/dL (0.55-1.3) 12/07/18 09:13 Random Glucose 135 mg/dL (74-106) H 12/07/18 09:13 Calcium 8.0 mg/dL (8.5-10.1) L 12/07/18 09:13 Total Bilirubin 0.3 mg/dL (0.2-1) 12/07/18 09:13 AST 77 U/L (15-37) H 12/07/18 09:13 ALT 92 U/L (13-61) H 12/07/18 09:13 Alkaline Phosphatase 72 U/L (45-117) 12/07/18 09:13 Total Protein 6.7 g/dl (6.4-8.2) 12/07/18 09:13 Albumin 3.2 g/dl (3.4-5.0) L 12/07/18 09:13 CARDIAC ENZYMES Troponin I < 0.02 ng/ml (0.00-0.05) 12/05/18 12:13 Imaging - Results Chest X-ray: Image Reviewed (NO EFFSUION/INFILTARTES) Cat Scan: Report Reviewed (no acute pathology) Plan 48yo F with PMH of Epilepsy, Migraines presenting to ED with family with complaints of fever, body aches and headache since day prior to admission. Pt returned from a 15 day trip to [place] day prior to admission and since the return , she has had fevers, body aches and headache. She took 4 Advil day prior to admission without much relief and 2 Motrin day of admission. She says she was bitten by mosquitos. She also states that there were 4 people that she knew in the area that were sick with Dengue Fever. She stated that the headache is all around her head, associated with photophobia and pain in her neck. She also endorsed abdominal pain (only when touched), nausea, joint pains. She also notes dysuria, frequency and urgency. Denies rashes, diarrhea, constipation, vomiting, cough, sore throat, congestion. Denied history of STDs, Herpes, HIV. Consulted for headache which she reports h/o migraines for over 12 years but this headache is different more diffuse and achy. Likely tension type due to underlying infection. Topamax 25mg BID being given, which may help with headache though may not get better until infection subsides. patient on Keppra for herseizure disorder and this morning reportedly with atypical Involuntary movement possibly seizure although ddid not seem stereotypic. Discussed with nurse at bedside and hospitalist, Keppra increased to 1000 mg twice a day. Patient was given Ativan.. Noncontrast head CT reviewed and did not show any acute changes. COntinue mgmt for Malaria vs Babesia, discussed with ID doctor. Supportive care, IV abx as needed. Cognitive rest recommended. Continue home seizure medications. Maintain adequate hydration. Infection can lower seizure threshold, recommend aggressive management of underlying infection, followed by the recommendations.
[2018-12-08] MEDS ORDERED: LORazepam 2 MG/ML SDV VIAL ONE (08:23)
[2018-12-08] MEDS ORDERED: LORazepam 2 MG/ML SDV VIAL IVPUSH PRN (08:26)
--- NOTE | 2018-12-08 08:32 | PN ---
Progress Note, Physician Chief Complaint: headache. History of Present Illness: Patient is a 48 year old female with a significant past medical history of epilepsy, migraines. She presents to the ED on 12/05/18 with c/o of fever, general malaise, body aches and headaches since 12/04/18. She had a recently traveled to [place]. On admission, she stated she was bitten by mosquitos. She also states that there were 4 people that she knew in the area that were sick with Dengue Fever. Called by nurse that patient was having a seizure. on exam, patient is laying in bed, eyes open, but not responding to commands. Her lower extremities are stiff and she was witnessed to be shaking by staff. Appears that she is post- ictal on my exam. She also has a fever of 101.6 Oxygen applied @ 2 liters as patient is desating. chest xray pending. Neuro on board and assessed patient after seizure. will order - keppra level - ativan for breakthrough seizure - given 1mg ativan now - zosyn one time, will discuss further antibiotics with id - panculture - chest xray - ofrimev x 1 - Current Medication List Current Medications: Active Medications Acetaminophen (Tylenol -) 650 mg PO Q6H PRN PRN Reason: FEVER Last Admin: 12/08/18 07:29 Dose: 650 mg Acetaminophen (Ofirmev Injection -) 1,000 mg IVPB ONCE ONE Stop: 12/08/18 08:31 Acetaminophen/Butalbital/Caffeine (Fioricet -) 1 tablet PO Q6H PRN PRN Reason: HEADACHE Last Admin: 12/07/18 23:58 Dose: 1 tablet Doxycycline Hyclate (Vibramycin -) 100 mg PO BID@1000,1800 [facility] Last Admin: 12/07/18 17:29 Dose: 100 mg Heparin Sodium (Porcine) (Heparin -) 5,000 unit SQ TID [facility] Last Admin: 12/08/18 06:42 Dose: 5,000 unit Sodium Chloride (Normal Saline -) 1,000 mls @ 125 mls/hr IV ASDIR [facility] Last Admin: 12/07/18 23:53 Dose: 125 mls/hr Piperacillin Sod/Tazobactam (Sod 3.375 gm/ Dextrose) 50 mls @ 100 mls/hr IVPB ONCE ONE; Protocol Stop: 12/08/18 08:59 Levetiracetam (Keppra -) 1,000 mg PO BID [facility] Last Admin: 12/07/18 21:54 Dose: 1,000 mg Levetiracetam (Keppra Injection -) 1,000 mg IVPB ONCE ONE Stop: 12/08/18 08:28 Lorazepam (Ativan Injection -) 1 mg IVPUSH ONCE ONE Stop: 12/08/18 08:27 Lorazepam (Ativan Injection -) 1 mg IVPUSH Q4H PRN PRN Reason: seizure Metoclopramide HCl (Reglan Injection -) 10 mg IVPUSH Q6H PRN PRN Reason: NAUSEA AND/OR VOMITING Last Admin: 12/07/18 14:01 Dose: 10 mg Morphine Sulfate (Morphine Sulfate) 2 mg IVPUSH Q4H PRN PRN Reason: PAIN LEVEL 7 - 10 Last Admin: 12/06/18 17:48 Dose: 2 mg Ondansetron HCl (Zofran Injection) 4 mg IVPUSH Q6H PRN PRN Reason: NAUSEA AND/OR VOMITING Last Admin: 12/08/18 05:38 Dose: 4 mg Topiramate (Topamax -) 25 mg PO BID [facility] Last Admin: 12/07/18 21:54 Dose: 25 mg - Objective Vital Signs: Vital Signs Temperature 101.6 F H 12/08/18 07:00 Pulse Rate 59 L 12/08/18 07:00 Respiratory Rate 18 12/08/18 07:00 Blood Pressure 116/71 12/08/18 07:00 O2 Sat by Pulse Oximetry (%) 93 L 12/07/18 21:00 Constitutional: Yes: No Distress, Calm HENT: Yes: Atraumatic Neck: Yes: Supple Cardiovascular: Yes: Regular Rate and Rhythm Respiratory: Yes: CTA Bilaterally Gastrointestinal: Yes: Normal Bowel Sounds ...Rectal Exam: Yes: WNL Genitourinary: Yes: WNL Breast(s): Yes: WNL Musculoskeletal: Yes: WNL Extremities: Yes: WNL Edema: No Integumentary: Yes: WNL Neurological: Yes: Seizure Psychiatric: Yes: Alert, Oriented Labs: CBC, BMP 12/07/18 09:13 12/07/18 09:13 INR, PTT INR 1.13 (0.83-1.09) H 12/05/18 12:00 - ....Imaging Chest X-ray: Report Reviewed EKG: Report Reviewed Problem List - Problems (1) Severe sepsis Assessment/Plan: Patient presents with fever, tachycardia, leukopenia and lactic acidosis. pancultured again today for fevers of 101.6F today and shaking chills. Re started on Zosyn. no confirmed source of infection, CXR with congestive changes and IV lasix given x 1. IVF discontinued. await blood cultures. Code(s): A41.9 - SEPSIS, UNSPECIFIED ORGANISM; R65.20 - SEVERE SEPSIS WITHOUT SEPTIC SHOCK (2) Epilepsy Assessment/Plan: patient with two witnessed seizures today. on keppra bid, topamax 25 bid, started on vimpat per neuro recommendations for EEG today seen and followed by neuro. recommendations appreciated. Code(s): G40.909 - EPILEPSY, UNSP, NOT INTRACTABLE, WITHOUT STATUS EPILEPTICUS (3) Dengue fever Assessment/Plan: patient with recent contact in household with multiple people with know Dengue fever, multiple bites noted on lower extremities presently refusing LP. blood smear, lymes and viral workup up per ID is pending monitor fever curve Code(s): A90 - DENGUE FEVER [CLASSICAL DENGUE] (4) Fever Assessment/Plan: on tylenol prn. Code(s): R50.9 - FEVER, UNSPECIFIED (5) Malaria Assessment/Plan: in endemic tropical area c/w supportive treatment, IVF, antiemetics, tylenol Code(s): B54 - UNSPECIFIED MALARIA (6) Periorbital edema Assessment/Plan: resolved. Code(s): R60.0 - LOCALIZED EDEMA (7) Thrombocytopenia Assessment/Plan: platelets improving today. monitor. on doxycycline Code(s): D69.6 - THROMBOCYTOPENIA, UNSPECIFIED (8) Prophylactic measure Assessment/Plan: fen d/c ivf monitor electrolytes low salt diet heparin tid Code(s): Z29.9 - ENCOUNTER FOR PROPHYLACTIC MEASURES, UNSPECIFIED (9) DVT prophylaxis Assessment/Plan: on heparin Code(s): Z29.9 - ENCOUNTER FOR PROPHYLACTIC MEASURES, UNSPECIFIED Visit type - Emergency Visit Emergency Visit: Yes ED Registration Date: 12/05/18 Care time: The patient presented to the Emergency Department on the above date and was hospitalized for further evaluation of their emergent condition. - New Patient This patient is new to me today: No - Critical Care Critical Care patient: No - Discharge Referral Referred to [facility] Med P.C.: No
[2018-12-08] MEDS ORDERED: ACETAMINOPHEN 1000 MG/100 ML VIAL (NON FORMULARY) IVPB ONE (08:45)
[2018-12-08] MEDS ORDERED: LORazepam 2 MG/ML SDV VIAL IVPUSH ONE ×2 (08:45→14:00)
[2018-12-08] MEDS ORDERED: levETIRAcetam 500 MG/5 ML INJECTION VIAL IVPB ONE ×2 (08:45→09:20)
[2018-12-08] MEDS ORDERED: PIPERACILLIN/TAZOB 3.375 GM 3.375 GM in DEXTROSE 5%-WATER - 50 ML IVPB ONE (08:45)
[2018-12-08] MEDS ORDERED: FUROSEMIDE 40 MG/4 ML INJECTABLE VIAL IVPUSH ONE ×2 (09:02→09:30)
[2018-12-08 09:08] LABS: BASO % 0.5 % (0-2.0); HEMATOCRIT 32.9 % (32.4-45.2); HEMOGLOBIN 11.6 GM/dL (10.7-15.3); LYMPH % 22.9 % (8-40); MCH 32.1 pg (25.7-33.7); MCHC 35.4 g/dl (32.0-36.0); MEAN CELL VOLUME 90.8 fl (80-96); MEAN PLT VOLUME 7.9 fl (7.5-11.1); MONO % 9.2 % (3.8-10.2); NEUT % 67.4 % (42.8-82.8); PLATELET COUNT 105 K/MM3 (134-434); RBC 3.62 M/mm3 (3.60-5.2); RDW 11.9 % (11.6-15.6); WHITE BLOOD COUNT 3.1 K/mm3 (4.0-10.0)
[2018-12-08 09:27] LABS: ALBUMIN 3.1 g/dl (3.4-5.0); BILIRUBIN,TOTAL 0.3 mg/dL (0.2-1); BLOOD UREA NITROGEN 8.5 mg/dL (7-18); CALCIUM 7.8 mg/dL (8.5-10.1); CREATININE 0.9 mg/dL (0.55-1.3); MAGNESIUM 2.1 mg/dL (1.8-2.4); POTASSIUM 3.7 mmol/L (3.5-5.1); TOT PROT 6.4 g/dl (6.4-8.2)
[2018-12-08] MEDS ORDERED: PIPERACILLIN/TAZOBACTAM 3.375 GM VIAL IVPB ONE ×2 (10:05→17:52)
[2018-12-08] MEDS ORDERED: DEXTROSE 5%-WATER - 50 ML IVPB ONE ×2 (10:05→17:52)
--- NOTE | 2018-12-08 11:37 | EKG ---
Test Reason : Blood Pressure : / mmHG Vent. Rate : 064 BPM Atrial Rate : 064 BPM P-R Int : 146 ms QRS Dur : 080 ms QT Int : 418 ms P-R-T Axes : 038 074 053 degrees QTc Int : 431 ms NORMAL SINUS RHYTHM NORMAL ECG WHEN COMPARED WITH ECG OF 05-DEC-2018 12:31, VENT. RATE HAS DECREASED BY 44 BPM Confirmed by JACE KAPLAN MD ([id number]) on 12/08/2018 11:36:41 AM Referred By: CRISTIANA SINCLAIR Confirmed By:JACE KAPLAN MD
[2018-12-08 12:04] LABS: BASO % 0.6 % (0-2.0); HEMATOCRIT 33.3 % (32.4-45.2); HEMOGLOBIN 11.8 GM/dL (10.7-15.3); LYMPH % 20.3 % (8-40); MCH 31.9 pg (25.7-33.7); MCHC 35.6 g/dl (32.0-36.0); MEAN CELL VOLUME 89.7 fl (80-96); MEAN PLT VOLUME 8.1 fl (7.5-11.1); MONO % 8.1 % (3.8-10.2); PLATELET COUNT 128 K/MM3 (134-434); RBC 3.71 M/mm3 (3.60-5.2); RDW 12.1 % (11.6-15.6); WHITE BLOOD COUNT 3.3 K/mm3 (4.0-10.0)
[2018-12-08 12:17] LABS: ALBUMIN 3.3 g/dl (3.4-5.0); BILIRUBIN,TOTAL 0.4 mg/dL (0.2-1); BLOOD UREA NITROGEN 7.9 mg/dL (7-18); CALCIUM 7.8 mg/dL (8.5-10.1); CREATININE 0.9 mg/dL (0.55-1.3); TOT PROT 6.7 g/dl (6.4-8.2)
[2018-12-08] MEDS: levETIRAcetam 500 MG TABLET (FP) PO SCH ×2 (12:25→22:30)
[2018-12-08] MEDS: DOXYCYCLINE HYCLATE 100 MG CAPSULE PO SCH ×2 (12:48→18:45)
[2018-12-08] MEDS: TOPIRAMATE 25 MG TABLET (FP) PO SCH ×2 (12:48→22:30)
[2018-12-08] MEDS: POTASSIUM CHLORIDE TABS 20 MEQ TABLET.ER (FP) PO ONE ×2 (13:18→13:39)
[2018-12-08 13:26] LABS: PH,URINE 7.5 (5.0-8.0); URINE APPEARANCE CLEAR; URINE BILIRUBIN NEGATIVE (NEGATIVE); URINE COLOR YELLOW; URINE GLUCOSE (UA) NEGATIVE (NEGATIVE); URINE KETONE NEGATIVE (NEGATIVE); URINE LEUK ESTERASE NEGATIVE (NEGATIVE); URINE NITRITE NEGATIVE (NEGATIVE); URINE PROTEIN NEGATIVE (NEGATIVE); URINE UROBILINOGEN 0.2 mg/dL (0.2-1.0)
--- NOTE | 2018-12-08 14:17 | PN ---
Progress Note, Physician History of Present Illness: patient still spiking fevers some suspicion of pseudo seizures pittman cultured got one dose of abx all cx negative so far - Current Medication List Current Medications: Active Medications Acetaminophen (Tylenol -) 650 mg PO Q6H PRN PRN Reason: FEVER Last Admin: 12/08/18 07:29 Dose: 650 mg Acetaminophen/Butalbital/Caffeine (Fioricet -) 1 tablet PO Q6H PRN PRN Reason: HEADACHE Last Admin: 12/07/18 23:58 Dose: 1 tablet Doxycycline Hyclate (Vibramycin -) 100 mg PO BID@1000,1800 [facility] Last Admin: 12/08/18 12:48 Dose: 100 mg Heparin Sodium (Porcine) (Heparin -) 5,000 unit SQ TID [facility] Last Admin: 12/08/18 13:21 Dose: 5,000 unit Potassium Chloride (Potassium Chloride 10 Meq Premix Ivpb -) 10 meq in 100 mls @ 100 mls/hr IVPB Q60M [facility] Stop: 12/08/18 16:14 Piperacillin Sod/Tazobactam (Sod 3.375 gm/ Dextrose) 50 mls @ 100 mls/hr IVPB Q8H-IV [facility]; Protocol Levetiracetam (Keppra -) 1,000 mg PO BID [facility] Last Admin: 12/08/18 12:25 Dose: Not Given Lorazepam (Ativan Injection -) 1 mg IVPUSH Q4H PRN PRN Reason: seizure Metoclopramide HCl (Reglan Injection -) 10 mg IVPUSH Q6H PRN PRN Reason: NAUSEA AND/OR VOMITING Last Admin: 12/07/18 14:01 Dose: 10 mg Morphine Sulfate (Morphine Sulfate) 2 mg IVPUSH Q4H PRN PRN Reason: PAIN LEVEL 7 - 10 Last Admin: 12/06/18 17:48 Dose: 2 mg Ondansetron HCl (Zofran Injection) 4 mg IVPUSH Q6H PRN PRN Reason: NAUSEA AND/OR VOMITING Last Admin: 12/08/18 05:38 Dose: 4 mg Topiramate (Topamax -) 25 mg PO BID [facility] Last Admin: 12/08/18 12:48 Dose: 25 mg - Objective Vital Signs: Vital Signs Temperature 99.3 F 12/08/18 13:55 Pulse Rate 80 12/08/18 13:55 Respiratory Rate 20 12/08/18 13:55 Blood Pressure 107/67 12/08/18 13:55 O2 Sat by Pulse Oximetry (%) 93 L 12/07/18 21:00 Constitutional: Yes: Calm Cardiovascular: Yes: S1, S2 Respiratory: Yes: Regular, CTA Bilaterally Gastrointestinal: Yes: Normal Bowel Sounds, Soft Musculoskeletal: Yes: WNL Extremities: Yes: WNL Neurological: Yes: Alert, Oriented Psychiatric: Yes: Alert, Oriented Labs: CBC, BMP 12/08/18 11:00 12/08/18 11:00 INR, PTT INR 1.13 (0.83-1.09) H 12/05/18 12:00 Assessment/Plan Problem List - Problems (1) Dengue fever Code(s): A90 - DENGUE FEVER [CLASSICAL DENGUE] (2) Malaria Code(s): B54 - UNSPECIFIED MALARIA (3) Abdominal pain Code(s): R10.9 - UNSPECIFIED ABDOMINAL PAIN Qualifiers: Abdominal location: left lower quadrant Qualified Code(s): R10.32 - Left lower quadrant pain (4) Epilepsy Code(s): G40.909 - EPILEPSY, UNSP, NOT INTRACTABLE, WITHOUT STATUS EPILEPTICUS (5) Prophylactic measure Code(s): Z29.9 - ENCOUNTER FOR PROPHYLACTIC MEASURES, UNSPECIFIED (6) Fever Code(s): R50.9 - FEVER, UNSPECIFIED (7) SIRS (systemic inflammatory response syndrome Code(s): R65.10 - SIRS OF NON-INFECTIOUS ORIGIN W/O ACUTE ORGAN DYSFUNCTION plan will start on empiric zosyn will watch on abx await for all cx reports rest as per the team
--- NOTE | 2018-12-08 15:02 | CONSULT ---
Consultation: REQUESTING PROVIDER: Allison Suggs CONSULT REQUEST: We have been asked to medically evaluate this patient for breakthrough seizures. HISTORY OF PRESENT ILLNESS: Kenyon Madrigal is a 48 year old female with a past medical history of epilepsy and migraines presented to the ED on 12/05 with a one day history of fevers, body aches, and headaches. She had returned from a 15 day trip to [place] where she was exposed to numerous people with Dengue fever as well as having multiple mosquito bites. She stated that the headache was unlike her migraine headaches and was associated with photophobia and phonobia. She was started on empiric antibiotics and was titrated down to Zosyn and doxycycline as per ID. While admitted, she had multiple episodes of reported seizures as per the nursing staff. Her home Keppra dose was continued and Topamax 25mg bid and Vimpat 50mg bid were added as per neurology. Patient and son were spoken to at bedside. The patient had a seizure in [place] a week prior and prior to that it is uncertain when she had a seizure but the son had noted that "it had been a while" and endorsed that she had been taking her AEDs regularly and as prescribed. The patient was alert and oriented when spoken to and stated that her headache was unlike her migraine headaches that this pain was more frontal and bilateral in nature. She endorsed photophobia, neck pain and stiffness, fever, chills, dizziness, nausea, vomiting. Kernig sign both positive. She denied chest pain, shortness of breath, abdominal pain, numbness, tingling, weakness. She previously refused lumbar puncture stating that she was very scared of it. Currently, she continues to refuse LP but states she will think about it. Surgical History: appendectomy, hysterectomy Social: recent travel to [place], denies alcohol use REVIEW OF SYSTEMS: CONSTITUTIONAL: fever, chills, malaise Absent: diaphoresis, generalized weakness, loss of appetite, weight change HEENT: Absent: rhinorrhea, nasal congestion, throat pain, throat swelling, difficulty swallowing, mouth swelling, ear pain, eye pain, visual changes CARDIOVASCULAR: Absent: chest pain, syncope, palpitations, irregular heart rate, lightheadedness , peripheral edema RESPIRATORY: Absent: cough, shortness of breath, dyspnea with exertion, orthopnea, wheezing, stridor, hemoptysis GASTROINTESTINAL: nausea, vomiting Absent: abdominal pain, abdominal distension, diarrhea, constipation, melena, hematochezia GENITOURINARY: Absent: dysuria, frequency, urgency, hesitancy, hematuria, flank pain, genital pain MUSCULOSKELETAL: neck pain Absent: myalgia, arthralgia, joint swelling, back pain, SKIN: Absent: rash, itching, pallor HEMATOLOGIC/IMMUNOLOGIC: Absent: easy bleeding, easy bruising, lymphadenopathy, frequent infections ENDOCRINE: Absent: unexplained weight gain, unexplained weight loss, heat intolerance, cold intolerance NEUROLOGIC: headache, dizziness, seizure Absent: focal weakness or paresthesias, unsteady gait, mental status changes, bladder or bowel incontinence PSYCHIATRIC: Absent: anxiety, depression, suicidal or homicidal ideation, hallucinations. PHYSICAL EXAMINATION Vital Signs - 24 hr 12/07/18 12/07/18 12/07/18 19:35 21:00 23:00 Temperature 98.6 F 98.5 F Pulse Rate 43 L 47 L Respiratory 18 18 18 Rate Blood Pressure 133/72 100/59 L O2 Sat by Pulse 93 L Oximetry (%) 12/08/18 12/08/18 12/08/18 03:00 07:00 08:15 Temperature 99.6 F 101.6 F H 101 F H Pulse Rate 58 L 59 L 63 Respiratory 18 18 25 H Rate Blood Pressure 103/56 L 116/71 133/75 O2 Sat by Pulse Oximetry (%) 12/08/18 12/08/18 12/08/18 08:45 09:00 11:45 Temperature 99.3 F 99.0 F Pulse Rate 64 77 Respiratory 22 H 20 Rate Blood Pressure 127/68 100/66 O2 Sat by Pulse 96 Oximetry (%) 12/08/18 12/08/18 12/08/18 13:30 13:55 14:52 Temperature 101 F H 99.3 F 101 F H Pulse Rate 83 80 80 Respiratory 25 H 20 20 Rate Blood Pressure 107/67 107/67 118/80 O2 Sat by Pulse Oximetry (%) GENERAL: Awake, alert, and fully oriented, in moderate acute distress. HEAD: Normal with no signs of trauma. EYES: Pupils equal, round and reactive to light, extraocular movements intact, sclera anicteric, conjunctiva clear. NECK: Decreased range of motion secondary to pain. LUNGS: Breath sounds equal, clear to auscultation bilaterally. No wheezes, and no crackles. No accessory muscle use. HEART: Regular rate and rhythm, normal S1 and S2 without murmur, rub or gallop. ABDOMEN: Soft, nontender, not distended, normoactive bowel sounds, no guarding, no rebound, no masses. MUSCULOSKELETAL: Normal range of motion at all joints. No bony deformities or tenderness. UPPER EXTREMITIES: 2+ pulses, warm, well-perfused. No cyanosis. No clubbing. Cap refill <2 seconds. No peripheral edema. LOWER EXTREMITIES: 2+ pulses, warm, well-perfused. No calf tenderness. No peripheral edema. NEUROLOGICAL: Cranial nerves II-XII intact. 4/5 muscle strength bilaterally upper and lower extremities. Sensation intact to gross touch bilaterally upper and lower extremities. Finger to nose intact, heel to figueroa intact. Kernig sign positive. PSYCHIATRIC: Cooperative. Good eye contact. Anxious mood and affect. SKIN: Warm, dry, normal turgor, no rashes or lesions noted. Laboratory Results - last 24 hr 12/06/18 12/08/18 12/08/18 12:20 07:50 07:50 WBC 3.1 L RBC 3.62 Hgb 11.6 Hct 32.9 MCV 90.8 MCH 32.1 MCHC 35.4 RDW 11.9 Plt Count 105 L MPV 7.9 Absolute Neuts (auto) 2.1 Neutrophils % 67.4 Lymphocytes % 22.9 Monocytes % 9.2 D Eosinophils % 0.0 Basophils % 0.5 Nucleated RBC % 0 Sodium 140 Potassium 3.7 Chloride 107 Carbon Dioxide 25 Anion Gap 8 BUN 8.5 Creatinine 0.9 Est GFR (CKD-EPI)AfAm 88.87 Est GFR (CKD-EPI)NonAf 76.68 Random Glucose 102 Lactic Acid Calcium 7.8 L Magnesium 2.1 Total Bilirubin 0.3 AST 66 H ALT 85 H Alkaline Phosphatase 62 Total Protein 6.4 Albumin 3.1 L Urine Color Urine Appearance Urine pH Ur Specific [place] Urine Protein Urine Glucose (UA) Urine Ketones Urine Blood Urine Nitrite Urine Bilirubin Urine Urobilinogen Ur Leukocyte Esterase Lyme Screen IgG & IgM <0.91 12/08/18 12/08/18 12/08/18 11:00 11:00 11:00 WBC 3.3 L RBC 3.71 Hgb 11.8 Hct 33.3 MCV 89.7 MCH 31.9 MCHC 35.6 RDW 12.1 Plt Count 128 L D MPV 8.1 Absolute Neuts (auto) 2.3 Neutrophils % 71.0 Lymphocytes % 20.3 Monocytes % 8.1 Eosinophils % 0.0 Basophils % 0.6 Nucleated RBC % 0 Sodium 140 Potassium 3.0 L Chloride 106 Carbon Dioxide 22 Anion Gap 11 BUN 7.9 Creatinine 0.9 Est GFR (CKD-EPI)AfAm 88.87 Est GFR (CKD-EPI)NonAf 76.68 Random Glucose 111 H Lactic Acid 1.2 Calcium 7.8 L Magnesium 2.0 Total Bilirubin 0.4 AST 64 H ALT 84 H Alkaline Phosphatase 63 Total Protein 6.7 Albumin 3.3 L Urine Color Urine Appearance Urine pH Ur Specific [place] Urine Protein Urine Glucose (UA) Urine Ketones Urine Blood Urine Nitrite Urine Bilirubin Urine Urobilinogen Ur Leukocyte Esterase Lyme Screen IgG & IgM 12/08/18 11:45 WBC RBC Hgb Hct MCV MCH MCHC RDW Plt Count MPV Absolute Neuts (auto) Neutrophils % Lymphocytes % Monocytes % Eosinophils % Basophils % Nucleated RBC % Sodium Potassium Chloride Carbon Dioxide Anion Gap BUN Creatinine Est GFR (CKD-EPI)AfAm Est GFR (CKD-EPI)NonAf Random Glucose Lactic Acid Calcium Magnesium Total Bilirubin AST ALT Alkaline Phosphatase Total Protein Albumin Urine Color Yellow Urine Appearance Clear Urine pH 7.5 Ur Specific [place] 1.006 L Urine Protein Negative Urine Glucose (UA) Negative Urine Ketones Negative Urine Blood Negative Urine Nitrite Negative Urine Bilirubin Negative Urine Urobilinogen 0.2 Ur Leukocyte Esterase Negative Lyme Screen IgG & IgM Active Medications Generic Name Dose Route Start Last Admin Trade Name Jasonq PRN Reason Stop Dose Admin Acetaminophen 650 mg 12/05/18 21:35 12/08/18 07:29 Tylenol - PO 650 mg Q6H PRN Administration FEVER Acetaminophen/Butalbital/Caffeine 1 tablet 12/06/18 12:18 12/07/18 23:58 Fioricet - PO 1 tablet Q6H PRN Administration HEADACHE Doxycycline Hyclate 100 mg 12/07/18 18:00 12/08/18 12:48 Vibramycin - PO 100 mg BID@1000,1800 [facility] Administration Heparin Sodium (Porcine) 5,000 unit 12/06/18 22:00 12/08/18 13:21 Heparin - SQ 5,000 unit TID [facility]ENATO Administration Potassium Chloride 10 meq in 100 mls @ 100 mls/hr 12/08/18 14:15 Potassium Chloride 10 Meq Premix Ivpb - IVPB 12/08/18 16:14 Q60M RENATO Piperacillin Sod/Tazobactam 50 mls @ 100 mls/hr 12/08/18 18:00 Sod 3.375 gm/ Dextrose IVPB Q8H-IV [facility] Protocol Lacosamide 50 mg 12/08/18 14:42 Vimpat Injection - IVPB BID [facility] Levetiracetam 1,000 mg 12/05/18 22:00 12/08/18 12:25 Keppra - PO Not Given BID [facility] Lorazepam 1 mg 12/08/18 08:26 Ativan Injection - IVPUSH Q4H PRN seizure Metoclopramide HCl 10 mg 12/05/18 22:27 12/07/18 14:01 Reglan Injection - IVPUSH 10 mg Q6H PRN Administration NAUSEA AND/OR VOMITING Morphine Sulfate 2 mg 12/06/18 17:43 12/06/18 17:48 Morphine Sulfate IVPUSH 2 mg Q4H PRN Administration PAIN LEVEL 7 - 10 Ondansetron HCl 4 mg 12/05/18 18:35 12/08/18 05:38 Zofran Injection IVPUSH 4 mg Q6H PRN Administration NAUSEA AND/OR VOMITING Topiramate 25 mg 12/07/18 10:00 12/08/18 12:48 Topamax - PO 25 mg BID [facility] Administration ASSESSMENT/PLAN: Kenyon Madrigal is a 48 year old female with a past medical history of epilepsy and migraines who was consulted for due to repeated seizures likely to infection from Dengue fever. Dengue Fever Epilepsy Thrombocytopenia Elevated LFTs NEUROLOGIC - head CT with no acute pathology - recommending continue treatment of infectious source to control seizure activity - LP of good utility, presently patient refusing, if patient continues to refuse can consider LP under IR guidance, if LP is refused under all condition can consider MRI - Dr. Barroso consulted, recs appreciated - continue AEDs as per neurology - EEG, Keppra levels, labs as per primary team and neurology - pain control as per primary team RESPIRATORY - continue NC as needed GASTROINTESTINAL - elevated LFTs, - recommending to trend LFTs and abdominal U/S if not improving - recommending Hep B/C panels - Zofran, Reglan as needed for nausea as per primary team INFECTIOUS DISEASE - Dr. Meadows consulted, recs appreciated - blood cultures negative, repeat pending, parasite smear negative - continue antibiotics doxycycline and Zosyn as per ID - monitor for fevers and white count - recommending LP for further evaluation of infectious source - recommend Dengue serology, HIV, HSV, Hepatitis panels - consider ceftriaxone if central source is likely for bacterial infection HEMATOLOGY - mildly thrombocytopenic, likely from infection F/E/N - as per primary team PROPHYLAXIS - heparin subq as per primary CODE - full code DISPO - can monitor on floors - call back if patient's condition changes Thank you for this consultative opportunity. CASE DISCUSSED WITH DR. COLLINS AND PRIMARY TEAM RICCO MCKEON DO - PGY-1 INTERNAL MEDICINE Visit type - Emergency Visit Emergency Visit: No - New Patient This patient is new to me today: Yes Date on this admission: 12/08/18 - Critical Care Critical Care patient: No
[2018-12-08] MEDS: KCL 10 MEQ IVPB 10 MEQ/100 ML INFUS.BAG IVPB SCH ×3 (15:11→16:00)
[2018-12-08] MEDS ORDERED: PT OWN MED DRAWER 7, Y5N ONE ×2 (15:15→15:19)
[2018-12-08] MEDS ORDERED: POTASSIUM CHLORIDE TABS 20 MEQ TABLET.ER (FP) PO ONE ×2 (15:46→21:37)
[2018-12-08] MEDS: Lacosamide 200 MG/20 ML VIAL IVPB SCH ×2 (15:47→22:30)
[2018-12-08] MEDS: ACETAMINOPHEN/CAFFEINE/BUTALBITAL 1 TAB PO PRN (15:53)
[2018-12-08] MEDS: PIPERACILLIN/TAZOB 3.375 GM 3.375 GM in DEXTROSE 5%-WATER - 50 ML IVPB SCH (17:59)
[2018-12-09] MEDS ORDERED: DEXTROSE 5%-WATER - 50 ML IVPB ONE ×3 (01:43→17:07)
[2018-12-09] MEDS ORDERED: PIPERACILLIN/TAZOBACTAM 3.375 GM VIAL IVPB ONE ×3 (01:43→17:07)
[2018-12-09] MEDS: PIPERACILLIN/TAZOB 3.375 GM 3.375 GM in DEXTROSE 5%-WATER - 50 ML IVPB SCH ×3 (02:20→18:23)
[2018-12-09] MEDS: HEPARIN NA (PORCINE) 5,000 UNITS/ML 1ML VIAL SQ SCH ×3 (06:51→21:38)
[2018-12-09 08:16] LABS: BASO % 0.6 % (0-2.0); EOS % 0.3 % (0-4.5); HEMOGLOBIN 12.8 GM/dL (10.7-15.3); LYMPH % 31.5 % (8-40); MCH 32.2 pg (25.7-33.7); MCHC 35.5 g/dl (32.0-36.0); MEAN CELL VOLUME 90.7 fl (80-96); MEAN PLT VOLUME 8.1 fl (7.5-11.1); MONO % 26.7 % (3.8-10.2); NEUT % 40.9 % (42.8-82.8); PLATELET COUNT 112 K/MM3 (134-434); RBC 3.97 M/mm3 (3.60-5.2); WHITE BLOOD COUNT 2.9 K/mm3 (4.0-10.0)
--- NOTE | 2018-12-09 09:02 | PN ---
Progress Note, Physician History of Present Illness: clinically patient looks much better than yesterday still says she is not feeling that well still spiking fevers cx all have been negative so far - Current Medication List Current Medications: Active Medications Acetaminophen (Tylenol -) 650 mg PO Q6H PRN PRN Reason: FEVER Last Admin: 12/08/18 23:07 Dose: 650 mg Acetaminophen/Butalbital/Caffeine (Fioricet -) 1 tablet PO Q6H PRN PRN Reason: HEADACHE Last Admin: 12/08/18 15:53 Dose: 1 tablet Doxycycline Hyclate (Vibramycin -) 100 mg PO BID@1000,1800 [facility] Last Admin: 12/08/18 18:45 Dose: 100 mg Heparin Sodium (Porcine) (Heparin -) 5,000 unit SQ TID [facility] Last Admin: 12/09/18 06:51 Dose: 5,000 unit Piperacillin Sod/Tazobactam (Sod 3.375 gm/ Dextrose) 50 mls @ 100 mls/hr IVPB Q8H-IV [facility]; Protocol Last Admin: 12/09/18 02:20 Dose: 100 mls/hr Lacosamide (Vimpat Injection -) 50 mg IVPB BID [facility] Last Admin: 12/08/18 22:30 Dose: 50 mg Levetiracetam (Keppra -) 1,000 mg PO BID [facility] Last Admin: 12/08/18 22:30 Dose: 1,000 mg Lorazepam (Ativan Injection -) 1 mg IVPUSH Q4H PRN PRN Reason: seizure Metoclopramide HCl (Reglan Injection -) 10 mg IVPUSH Q6H PRN PRN Reason: NAUSEA AND/OR VOMITING Last Admin: 12/07/18 14:01 Dose: 10 mg Morphine Sulfate (Morphine Sulfate) 2 mg IVPUSH Q4H PRN PRN Reason: PAIN LEVEL 7 - 10 Last Admin: 12/06/18 17:48 Dose: 2 mg Ondansetron HCl (Zofran Injection) 4 mg IVPUSH Q6H PRN PRN Reason: NAUSEA AND/OR VOMITING Last Admin: 12/08/18 23:10 Dose: 4 mg Topiramate (Topamax -) 25 mg PO BID [facility] Last Admin: 12/08/18 22:30 Dose: 25 mg - Objective Vital Signs: Vital Signs Temperature 99.2 F 12/09/18 06:00 Pulse Rate 52 L 12/09/18 06:00 Respiratory Rate 20 12/09/18 06:00 Blood Pressure 100/52 L 12/09/18 06:00 O2 Sat by Pulse Oximetry (%) 98 12/08/18 21:00 Constitutional: Yes: Well Nourished, Calm, Mild Distress Neck: Yes: Supple Cardiovascular: Yes: Regular Rate and Rhythm Respiratory: Yes: Regular, CTA Bilaterally Gastrointestinal: Yes: Normal Bowel Sounds, Soft Genitourinary: Yes: WNL Musculoskeletal: Yes: WNL Extremities: Yes: WNL Neurological: Yes: Alert, Oriented Labs: CBC, BMP 12/09/18 07:25 INR, PTT INR 1.13 (0.83-1.09) H 12/05/18 12:00 Assessment/Plan Problem List - Problems (1) Dengue fever Code(s): A90 - DENGUE FEVER [CLASSICAL DENGUE] (2) Malaria Code(s): B54 - UNSPECIFIED MALARIA (3) Abdominal pain Code(s): R10.9 - UNSPECIFIED ABDOMINAL PAIN Qualifiers: Abdominal location: left lower quadrant Qualified Code(s): R10.32 - Left lower quadrant pain (4) Epilepsy Code(s): G40.909 - EPILEPSY, UNSP, NOT INTRACTABLE, WITHOUT STATUS EPILEPTICUS (5) Prophylactic measure Code(s): Z29.9 - ENCOUNTER FOR PROPHYLACTIC MEASURES, UNSPECIFIED (6) Fever Code(s): R50.9 - FEVER, UNSPECIFIED (7) SIRS (systemic inflammatory response syndrome Code(s): R65.10 - SIRS OF NON-INFECTIOUS ORIGIN W/O ACUTE ORGAN DYSFUNCTION plan conitnue current mgmt monitor wbc monitor platelets monitor fever supportive measures for now await for repeat blood cx
[2018-12-09 09:11] LABS: ALBUMIN 3.4 g/dl (3.4-5.0); BILIRUBIN,TOTAL 0.4 mg/dL (0.2-1); BLOOD UREA NITROGEN 9.4 mg/dL (7-18); CALCIUM 8.5 mg/dL (8.5-10.1); CREATININE 1.1 mg/dL (0.55-1.3); MAGNESIUM 2.2 mg/dL (1.8-2.4); TOT PROT 7.3 g/dl (6.4-8.2)
[2018-12-09] MEDS ORDERED: ACETAMINOPHEN 500 MG TABLET (FP) PO PRN (09:13)
[2018-12-09] MEDS: VANCOMYCIN 1 GM in D5W (PRE-DOCKED) 1,000 MG/250 ML IVPB SCH ×2 (09:20→09:21)
--- NOTE | 2018-12-09 09:32 | PN ---
Progress Note (short form) - Note Progress Note: Neurology Chief Complaint: body aches & body aches x 2 days, fever x 1 day. Recently in [place]-2 days ago History of Present Illness: 48yo F with PMH of Epilepsy, Migraines presenting to ED with family with complaints of fever, body aches and headache since day prior to admission. Pt returned from a 15 day trip to [place] day prior to admission and since the return , she has had fevers, body aches and headache. She took 4 Advil day prior to admission without much relief and 2 Motrin day of admission. She says she was bitten by mosquitos. She also states that there were 4 people that she knew in the area that were sick with Dengue Fever. She stated that the headache is all around her head, associated with photophobia and pain in her neck. She also endorsed abdominal pain (only when touched), nausea, joint pains. She also notes dysuria, frequency and urgency. Denies rashes, diarrhea, constipation, vomiting, cough, sore throat, congestion. Denied history of STDs, Herpes, HIV. Consulted for headache which she reports h/o migraines for over 12 years but this headache is different more diffuse and achy. Likely tension type due to underlying infection. patient on Keppra and no seizures overnight, still awaiting EEG completion. Yesterday, had second event during the day and therefore I had started her on Vimpat 50 mg twice a day. Was notified by the hospitalist that she sees Dr. Delgado as outpatient were contacted and we discussed the case. He asked that I continue to follow the patient. spoke with ID this morning and continues to get treatment for underlying infection. Also spoke with hospitalist yesterday and this AM. Spoke to son at bedside today and updated him on the case. Allergies Allergy/AdvReac Type Severity Reaction Status Date / Time Iodinated Contrast Media Allergy Hives Verified 12/05/18 11:49 [Iodinated Contrast Media - IV Dye] Active Medications Acetaminophen (Tylenol -) 500 mg PO Q6H PRN PRN Reason: FEVER Acetaminophen/Butalbital/Caffeine (Fioricet -) 1 tablet PO Q6H PRN PRN Reason: HEADACHE Last Admin: 12/08/18 15:53 Dose: 1 tablet Heparin Sodium (Porcine) (Heparin -) 5,000 unit SQ TID [facility] Last Admin: 12/09/18 06:51 Dose: 5,000 unit Piperacillin Sod/Tazobactam (Sod 3.375 gm/ Dextrose) 50 mls @ 100 mls/hr IVPB Q8H-IV [facility]; Protocol Last Admin: 12/09/18 02:20 Dose: 100 mls/hr Lacosamide (Vimpat Injection -) 50 mg IVPB BID [facility] Last Admin: 12/08/18 22:30 Dose: 50 mg Levetiracetam (Keppra -) 1,000 mg PO BID [facility] Last Admin: 12/08/18 22:30 Dose: 1,000 mg Lorazepam (Ativan Injection -) 1 mg IVPUSH Q4H PRN PRN Reason: seizure Metoclopramide HCl (Reglan Injection -) 10 mg IVPUSH Q6H PRN PRN Reason: NAUSEA AND/OR VOMITING Last Admin: 12/07/18 14:01 Dose: 10 mg Morphine Sulfate (Morphine Sulfate) 2 mg IVPUSH Q4H PRN PRN Reason: PAIN LEVEL 7 - 10 Last Admin: 12/06/18 17:48 Dose: 2 mg Ondansetron HCl (Zofran Injection) 4 mg IVPUSH Q6H PRN PRN Reason: NAUSEA AND/OR VOMITING Last Admin: 12/08/18 23:10 Dose: 4 mg Topiramate (Topamax -) 25 mg PO BID [facility] Last Admin: 12/08/18 22:30 Dose: 25 mg Physical Examination Vital Signs: Vital Signs Period Temp Pulse Resp BP Sys/Davis Pulse Ox Last 24 Hr 99.0 F-101.3 F 52-83 20-25 95-118/49-80 98 Constitutional: Yes: Well Nourished, Moderate Distress Eyes: Yes: WNL, Conjunctiva Clear, EOM Intact HENT: Yes: WNL, Atraumatic, Normocephalic Neck: Yes: WNL, Supple, Trachea Midline Cardiovascular: Yes: WNL, Tachycardia Respiratory: Yes: Regular, CTA Bilaterally, SOB on Exertion Gastrointestinal: Yes: WNL, Normal Bowel Sounds, Soft, Tenderness (to RLQ/LLQ) ...Rectal Exam: Yes: Deferred Renal/: Yes: WNL Breast(s): Yes: WNL Musculoskeletal: Yes: Muscle Pain, Muscle Weakness Extremities: Yes: WNL Edema: No Peripheral Pulses WNL: Yes Integumentary: Yes: WNL Neurological: AWake, alert, conversive, moves all extremities equally, sensory intact, gait defered CBCD WBC 2.9 K/mm3 (4.0-10.0) L 12/09/18 07:25 RBC 3.97 M/mm3 (3.60-5.2) 12/09/18 07:25 Hgb 12.8 GM/dL (10.7-15.3) 12/09/18 07:25 Hct 36.0 % (32.4-45.2) 12/09/18 07:25 MCV 90.7 fl (80-96) 12/09/18 07:25 MCHC 35.5 g/dl (32.0-36.0) 12/09/18 07:25 RDW 12.0 % (11.6-15.6) 12/09/18 07:25 Plt Count 112 K/MM3 (134-434) L 12/09/18 07:25 MPV 8.1 fl (7.5-11.1) 12/09/18 07:25 CMP Sodium 142 mmol/L (136-145) 12/09/18 07:25 Potassium 4.0 mmol/L (3.5-5.1) 12/09/18 07:25 Chloride 109 mmol/L (98-107) H 12/09/18 07:25 Carbon Dioxide 23 mmol/L (21-32) 12/09/18 07:25 Anion Gap 10 MMOL/L (8-16) 12/09/18 07:25 BUN 9.4 mg/dL (7-18) 12/09/18 07:25 Creatinine 1.1 mg/dL (0.55-1.3) 12/09/18 07:25 Random Glucose 100 mg/dL (74-106) 12/09/18 07:25 Calcium 8.5 mg/dL (8.5-10.1) 12/09/18 07:25 Total Bilirubin 0.4 mg/dL (0.2-1) 12/09/18 07:25 AST 112 U/L (15-37) H 12/09/18 07:25 ALT 108 U/L (13-61) H 12/09/18 07:25 Alkaline Phosphatase 63 U/L (45-117) 12/09/18 07:25 Total Protein 7.3 g/dl (6.4-8.2) 12/09/18 07:25 Albumin 3.4 g/dl (3.4-5.0) 12/09/18 07:25 CARDIAC ENZYMES Troponin I < 0.02 ng/ml (0.00-0.05) 12/05/18 12:13 Imaging - Results Chest X-ray: Image Reviewed (NO EFFSUION/INFILTARTES) Cat Scan: Report Reviewed (no acute pathology) Plan 48yo F with PMH of Epilepsy, Migraines presenting to ED with family with complaints of fever, body aches and headache since day prior to admission. Pt returned from a 15 day trip to [place] day prior to admission and since the return , she has had fevers, body aches and headache. She took 4 Advil day prior to admission without much relief and 2 Motrin day of admission. She says she was bitten by mosquitos. She also states that there were 4 people that she knew in the area that were sick with Dengue Fever. She stated that the headache is all around her head, associated with photophobia and pain in her neck. She also endorsed abdominal pain (only when touched), nausea, joint pains. She also notes dysuria, frequency and urgency. Denies rashes, diarrhea, constipation, vomiting, cough, sore throat, congestion. Denied history of STDs, Herpes, HIV. Consulted for headache which she reports h/o migraines for over 12 years but this headache is different more diffuse and achy. Likely tension type due to underlying infection. patient on Keppra and no seizures overnight, still awaiting EEG completion. Yesterday, had second event during the day and therefore I had started her on Vimpat 50 mg twice a day. Was notified by the hospitalist that she sees Dr. Delgado as outpatient were contacted and we discussed the case. He asked that I continue to follow the patient. spoke with ID this morning and continues to get treatment for underlying infection. Also spoke with hospitalist yesterday and this AM. Spoke to son at bedside today and updated him on the case.. COntinue mgmt for Malaria vs Babesia, discussed with ID doctor. Supportive care, IV abx as needed. Cognitive rest recommended. Continue home seizure medications. Maintain adequate hydration. Infection can lower seizure threshold, recommend aggressive management of underlying infection.
[2018-12-09] MEDS: levETIRAcetam 500 MG TABLET (FP) PO SCH ×2 (09:57→21:37)
[2018-12-09] MEDS: TOPIRAMATE 25 MG TABLET (FP) PO SCH ×2 (10:01→21:38)
[2018-12-09] MEDS: METOCLOPRAMIDE HCL INJECTION 10 MG/2 ML VIAL IVPUSH PRN (10:05)
--- NOTE | 2018-12-09 11:23 | PN ---
Progress Note, Physician Chief Complaint: weakness but feels better today History of Present Illness: Patient is a 48 year old female with a significant past medical history of epilepsy, migraines. She presents to the ED on 12/05/18 with c/o of fever, general malaise, body aches and headaches since 12/04/18. She had a recently traveled to [place]. On admission, she stated she was bitten by mosquitos. She also states that there were 4 people that she knew in the area that were sick with Dengue Fever. Patient with two possible seizure episodes yesterday, none overnight. EEG done and pending read Pancultured yesterday, on zosyn now - Current Medication List Current Medications: Active Medications Acetaminophen (Tylenol -) 500 mg PO Q6H PRN PRN Reason: FEVER Acetaminophen/Butalbital/Caffeine (Fioricet -) 1 tablet PO Q6H PRN PRN Reason: HEADACHE Last Admin: 12/08/18 15:53 Dose: 1 tablet Heparin Sodium (Porcine) (Heparin -) 5,000 unit SQ TID [facility] Last Admin: 12/09/18 06:51 Dose: 5,000 unit Piperacillin Sod/Tazobactam (Sod 3.375 gm/ Dextrose) 50 mls @ 100 mls/hr IVPB Q8H-IV [facility]; Protocol Last Admin: 12/09/18 02:20 Dose: 100 mls/hr Lacosamide (Vimpat Injection -) 50 mg IVPB BID [facility] Last Admin: 12/08/18 22:30 Dose: 50 mg Levetiracetam (Keppra -) 1,000 mg PO BID [facility] Last Admin: 12/09/18 09:57 Dose: 1,000 mg Lorazepam (Ativan Injection -) 1 mg IVPUSH Q4H PRN PRN Reason: seizure Metoclopramide HCl (Reglan Injection -) 10 mg IVPUSH Q6H PRN PRN Reason: NAUSEA AND/OR VOMITING Last Admin: 12/09/18 10:05 Dose: 10 mg Morphine Sulfate (Morphine Sulfate) 2 mg IVPUSH Q4H PRN PRN Reason: PAIN LEVEL 7 - 10 Last Admin: 12/06/18 17:48 Dose: 2 mg Ondansetron HCl (Zofran Injection) 4 mg IVPUSH Q6H PRN PRN Reason: NAUSEA AND/OR VOMITING Last Admin: 12/08/18 23:10 Dose: 4 mg Topiramate (Topamax -) 25 mg PO BID [facility] Last Admin: 12/09/18 10:01 Dose: 25 mg - Objective Vital Signs: Vital Signs Temperature 99.3 F 12/09/18 09:42 Pulse Rate 53 L 12/09/18 09:42 Respiratory Rate 16 12/09/18 09:42 Blood Pressure 108/60 12/09/18 09:42 O2 Sat by Pulse Oximetry (%) 98 12/08/18 21:00 Constitutional: Yes: No Distress, Calm Eyes: Yes: WNL HENT: Yes: Atraumatic Neck: Yes: Supple Cardiovascular: Yes: Regular Rate and Rhythm Respiratory: Yes: CTA Bilaterally Gastrointestinal: Yes: Normal Bowel Sounds, Soft ...Rectal Exam: Yes: Deferred Musculoskeletal: Yes: WNL Edema: No Peripheral Pulses WNL: No Integumentary: Yes: WNL Neurological: Yes: Alert, Oriented ...Motor Strength: WNL Psychiatric: Yes: WNL Labs: CBC, BMP 12/09/18 07:25 12/09/18 07:25 INR, PTT INR 1.13 (0.83-1.09) H 12/05/18 12:00 - ....Imaging Chest X-ray: Report Reviewed, Image Reviewed Ultrasound: Report Reviewed, Image Reviewed EKG: Report Reviewed, Image Reviewed Problem List - Problems (1) Severe sepsis Assessment/Plan: Patient presents with fever, tachycardia, leukopenia and lactic acidosis. pancultured yesterday for fevers of 101.6F and shaking chills. Re started on Zosyn. no confirmed source of infection, CXR with congestive changes and IV lasix given x 1 with good response. IVF discontinued. await blood cultures, if negative will d/c antibiotics and monitor. Code(s): A41.9 - SEPSIS, UNSPECIFIED ORGANISM; R65.20 - SEVERE SEPSIS WITHOUT SEPTIC SHOCK (2) Epilepsy Assessment/Plan: patient with two witnessed seizures on 12/08/18 on keppra bid, topamax 25 bid, started on vimpat per neuro recommendations EEG pending read seen and followed by neuro. recommendations appreciated. Code(s): G40.909 - EPILEPSY, UNSP, NOT INTRACTABLE, WITHOUT STATUS EPILEPTICUS (3) Dengue fever Assessment/Plan: patient with recent contact in household with multiple people with know Dengue fever, multiple bites noted on lower extremities presently refusing LP. blood smear, lymes and viral workup up per ID is pending monitor fever curve Code(s): A90 - DENGUE FEVER [CLASSICAL DENGUE] (4) Fever Assessment/Plan: on tylenol prn. Code(s): R50.9 - FEVER, UNSPECIFIED (5) Malaria Assessment/Plan: in endemic tropical area c/w supportive treatment, IVF, antiemetics, tylenol Code(s): B54 - UNSPECIFIED MALARIA (6) Periorbital edema Assessment/Plan: resolved. Code(s): R60.0 - LOCALIZED EDEMA (7) Thrombocytopenia Assessment/Plan: platelets improving today. monitor. on doxycycline Code(s): D69.6 - THROMBOCYTOPENIA, UNSPECIFIED (8) Abnormal AST and ALT Assessment/Plan: liver u/s show fatty liver. no other acute pathology minimize use of tylenol Code(s): R74.8 - ABNORMAL LEVELS OF OTHER SERUM ENZYMES (9) DVT prophylaxis Assessment/Plan: on heparin Code(s): Z29.9 - ENCOUNTER FOR PROPHYLACTIC MEASURES, UNSPECIFIED (10) Prophylactic measure Assessment/Plan: fen d/c ivf monitor electrolytes low salt diet heparin tid Code(s): Z29.9 - ENCOUNTER FOR PROPHYLACTIC MEASURES, UNSPECIFIED Visit type - Emergency Visit Emergency Visit: Yes ED Registration Date: 12/05/18 Care time: The patient presented to the Emergency Department on the above date and was hospitalized for further evaluation of their emergent condition. - New Patient This patient is new to me today: No - Critical Care Critical Care patient: No - Discharge Referral Referred to [facility] No
[2018-12-09] MEDS: Lacosamide 200 MG/20 ML VIAL IVPB SCH ×2 (11:36→21:38)
[2018-12-09 11:48] LABS: ANISOCYTOSIS 2+; MACROCYTOSIS 0; OVALOCYTE 1+; PLATELET ESTIMATE DECREASED
[2018-12-09] MEDS ORDERED: PT OWN MED DRAWER 7, Y5N ONE (13:58)
[2018-12-10] MEDS ORDERED: PIPERACILLIN/TAZOBACTAM 3.375 GM VIAL IVPB ONE ×2 (02:45→09:40)
[2018-12-10] MEDS ORDERED: DEXTROSE 5%-WATER - 50 ML IVPB ONE ×2 (02:45→09:40)
[2018-12-10] MEDS: PIPERACILLIN/TAZOB 3.375 GM 3.375 GM in DEXTROSE 5%-WATER - 50 ML IVPB SCH ×2 (02:52→10:02)
[2018-12-10] MEDS: HEPARIN NA (PORCINE) 5,000 UNITS/ML 1ML VIAL SQ SCH ×3 (05:58→21:26)
[2018-12-10] MEDS: ACETAMINOPHEN/CAFFEINE/BUTALBITAL 1 TAB PO PRN ×2 (06:28→14:12)
[2018-12-10] MEDS: METOCLOPRAMIDE HCL INJECTION 10 MG/2 ML VIAL IVPUSH PRN ×2 (06:28→14:06)
[2018-12-10 07:32] LABS: BASO % 0.5 % (0-2.0); EOS % 0.6 % (0-4.5); HEMATOCRIT 36.1 % (32.4-45.2); LYMPH % 39.3 % (8-40); MCH 32.2 pg (25.7-33.7); MCHC 35.9 g/dl (32.0-36.0); MEAN CELL VOLUME 89.6 fl (80-96); MEAN PLT VOLUME 8.5 fl (7.5-11.1); MONO % 43.9 % (3.8-10.2); NEUT % 15.7 % (42.8-82.8); PLATELET COUNT 108 K/MM3 (134-434); RBC 4.03 M/mm3 (3.60-5.2); WHITE BLOOD COUNT 5.3 K/mm3 (4.0-10.0)
[2018-12-10 07:37] LABS: ALBUMIN 3.2 g/dl (3.4-5.0); BILIRUBIN,TOTAL 0.4 mg/dL (0.2-1); BLOOD UREA NITROGEN 9.4 mg/dL (7-18); CALCIUM 8.5 mg/dL (8.5-10.1); MAGNESIUM 2.3 mg/dL (1.8-2.4); POTASSIUM 3.8 mmol/L (3.5-5.1); TOT PROT 7.2 g/dl (6.4-8.2)
[2018-12-10] MEDS: levETIRAcetam 500 MG TABLET (FP) PO SCH ×2 (10:01→21:26)
[2018-12-10] MEDS: TOPIRAMATE 25 MG TABLET (FP) PO SCH ×2 (10:01→21:26)
--- NOTE | 2018-12-10 10:28 | PN ---
Progress Note (short form) - Note Progress Note: Neurology Chief Complaint: body aches & body aches x 2 days, fever x 1 day. Recently in [place]-2 days ago History of Present Illness: 48yo F with PMH of Epilepsy, Migraines presenting to ED with family with complaints of fever, body aches and headache since day prior to admission. Pt returned from a 15 day trip to [place] day prior to admission and since the return , she has had fevers, body aches and headache. She took 4 Advil day prior to admission without much relief and 2 Motrin day of admission. She says she was bitten by mosquitos. She also states that there were 4 people that she knew in the area that were sick with Dengue Fever. She stated that the headache is all around her head, associated with photophobia and pain in her neck. She also endorsed abdominal pain (only when touched), nausea, joint pains. She also notes dysuria, frequency and urgency. Denies rashes, diarrhea, constipation, vomiting, cough, sore throat, congestion. Denied history of STDs, Herpes, HIV. Consulted for headache which she reports h/o migraines for over 12 years but this headache is different more diffuse and achy. Likely tension type due to underlying infection. patient on Keppra and no seizures overnight, still awaiting EEG completion. Yesterday, had second event during the day and therefore I had started her on Vimpat 50 mg twice a day. Was notified by the hospitalist that she sees Dr. Delgado as outpatient were contacted and we discussed the case. He asked that I continue to follow the patient. spoke with ID this morning and continues to get treatment for underlying infection. Feeling better today and no seizure recurrence. More responsive though still slightly ill appearing. Neurologically stable. Allergies Allergy/AdvReac Type Severity Reaction Status Date / Time Iodinated Contrast Media Allergy Hives Verified 12/05/18 11:49 [Iodinated Contrast Media - IV Dye] Active Medications Acetaminophen (Tylenol -) 500 mg PO Q6H PRN PRN Reason: FEVER Acetaminophen/Butalbital/Caffeine (Fioricet -) 1 tablet PO Q6H PRN PRN Reason: HEADACHE Last Admin: 12/10/18 06:28 Dose: 1 tablet Heparin Sodium (Porcine) (Heparin -) 5,000 unit SQ TID [facility] Last Admin: 12/10/18 05:58 Dose: Not Given Piperacillin Sod/Tazobactam (Sod 3.375 gm/ Dextrose) 50 mls @ 100 mls/hr IVPB Q8H-IV [facility]; Protocol Last Admin: 12/10/18 10:02 Dose: 100 mls/hr Lacosamide (Vimpat Injection -) 50 mg IVPB BID [facility] Last Admin: 12/09/18 21:38 Dose: 50 mg Levetiracetam (Keppra -) 1,000 mg PO BID [facility] Last Admin: 12/10/18 10:01 Dose: 1,000 mg Lorazepam (Ativan Injection -) 1 mg IVPUSH Q4H PRN PRN Reason: seizure Metoclopramide HCl (Reglan Injection -) 10 mg IVPUSH Q6H PRN PRN Reason: NAUSEA AND/OR VOMITING Last Admin: 12/10/18 06:28 Dose: 10 mg Ondansetron HCl (Zofran Injection) 4 mg IVPUSH Q6H PRN PRN Reason: NAUSEA AND/OR VOMITING Last Admin: 12/08/18 23:10 Dose: 4 mg Topiramate (Topamax -) 25 mg PO BID [facility] Last Admin: 12/10/18 10:01 Dose: 25 mg Physical Examination Vital Signs: Vital Signs Temperature 97.8 F 12/10/18 08:15 Pulse Rate 49 L 12/10/18 08:55 Respiratory Rate 18 12/10/18 08:55 Blood Pressure 104/59 L 12/10/18 08:55 O2 Sat by Pulse Oximetry (%) 98 12/09/18 21:00 Constitutional: Yes: Well Nourished, Moderate Distress Eyes: Yes: WNL, Conjunctiva Clear, EOM Intact HENT: Yes: WNL, Atraumatic, Normocephalic Neck: Yes: WNL, Supple, Trachea Midline Cardiovascular: Yes: WNL, Tachycardia Respiratory: Yes: Regular, CTA Bilaterally, SOB on Exertion Gastrointestinal: Yes: WNL, Normal Bowel Sounds, Soft, Tenderness (to RLQ/LLQ) ...Rectal Exam: Yes: Deferred Renal/: Yes: WNL Breast(s): Yes: WNL Musculoskeletal: Yes: Muscle Pain, Muscle Weakness Extremities: Yes: WNL Edema: No Peripheral Pulses WNL: Yes Integumentary: Yes: WNL Neurological: AWake, alert, conversive, moves all extremities equally, sensory intact, gait defered CBCD WBC 5.3 K/mm3 (4.0-10.0) 12/10/18 06:00 RBC 4.03 M/mm3 (3.60-5.2) 12/10/18 06:00 Hgb 13.0 GM/dL (10.7-15.3) 12/10/18 06:00 Hct 36.1 % (32.4-45.2) 12/10/18 06:00 MCV 89.6 fl (80-96) 12/10/18 06:00 MCHC 35.9 g/dl (32.0-36.0) 12/10/18 06:00 RDW 12.0 % (11.6-15.6) 12/10/18 06:00 Plt Count 108 K/MM3 (134-434) L 12/10/18 06:00 MPV 8.5 fl (7.5-11.1) 12/10/18 06:00 CMP Sodium 138 mmol/L (136-145) 12/10/18 06:00 Potassium 3.8 mmol/L (3.5-5.1) 12/10/18 06:00 Chloride 107 mmol/L (98-107) 12/10/18 06:00 Carbon Dioxide 22 mmol/L (21-32) 12/10/18 06:00 Anion Gap 9 MMOL/L (8-16) 12/10/18 06:00 BUN 9.4 mg/dL (7-18) 12/10/18 06:00 Creatinine 1.0 mg/dL (0.55-1.3) 12/10/18 06:00 Random Glucose 108 mg/dL (74-106) H 12/10/18 06:00 Calcium 8.5 mg/dL (8.5-10.1) 12/10/18 06:00 Total Bilirubin 0.4 mg/dL (0.2-1) 12/10/18 06:00 AST 95 U/L (15-37) H 12/10/18 06:00 ALT 110 U/L (13-61) H 12/10/18 06:00 Alkaline Phosphatase 62 U/L (45-117) 12/10/18 06:00 Total Protein 7.2 g/dl (6.4-8.2) 12/10/18 06:00 Albumin 3.2 g/dl (3.4-5.0) L 12/10/18 06:00 CARDIAC ENZYMES Troponin I < 0.02 ng/ml (0.00-0.05) 12/05/18 12:13 Imaging - Results Chest X-ray: Image Reviewed (NO EFFSUION/INFILTARTES) Cat Scan: Report Reviewed (no acute pathology) Plan 48yo F with PMH of Epilepsy, Migraines presenting to ED with family with complaints of fever, body aches and headache since day prior to admission. Pt returned from a 15 day trip to [place] day prior to admission and since the return , she has had fevers, body aches and headache. She took 4 Advil day prior to admission without much relief and 2 Motrin day of admission. She says she was bitten by mosquitos. She also states that there were 4 people that she knew in the area that were sick with Dengue Fever. She stated that the headache is all around her head, associated with photophobia and pain in her neck. She also endorsed abdominal pain (only when touched), nausea, joint pains. She also notes dysuria, frequency and urgency. Denies rashes, diarrhea, constipation, vomiting, cough, sore throat, congestion. Denied history of STDs, Herpes, HIV. Consulted for headache which she reports h/o migraines for over 12 years but this headache is different more diffuse and achy. Likely tension type due to underlying infection. patient on Keppra and no seizures overnight, still awaiting EEG completion. Yesterday, had second event during the day and therefore I had started her on Vimpat 50 mg twice a day. Was notified by the hospitalist that she sees Dr. Delgado as outpatient were contacted and we discussed the case. He asked that I continue to follow the patient. spoke with ID this morning and continues to get treatment for underlying infection. Feeling better today and no seizure recurrence. More responsive though still slightly ill appearing. Neurologically stable. COntinue mgmt for Malaria vs Babesia, discussed with ID doctor. Supportive care, IV abx as needed. Cognitive rest recommended. Continue home seizure medications. Maintain adequate hydration. Infection can lower seizure threshold, recommend aggressive management of underlying infection.
--- NOTE | 2018-12-10 10:30 | PN ---
Progress Note, Physician History of Present Illness: patient stable now remaining afebrile - Current Medication List Current Medications: Active Medications Acetaminophen (Tylenol -) 500 mg PO Q6H PRN PRN Reason: FEVER Acetaminophen/Butalbital/Caffeine (Fioricet -) 1 tablet PO Q6H PRN PRN Reason: HEADACHE Last Admin: 12/10/18 06:28 Dose: 1 tablet Heparin Sodium (Porcine) (Heparin -) 5,000 unit SQ TID [facility] Last Admin: 12/10/18 05:58 Dose: Not Given Lacosamide (Vimpat Injection -) 50 mg IVPB BID [facility] Last Admin: 12/09/18 21:38 Dose: 50 mg Levetiracetam (Keppra -) 1,000 mg PO BID [facility] Last Admin: 12/10/18 10:01 Dose: 1,000 mg Lorazepam (Ativan Injection -) 1 mg IVPUSH Q4H PRN PRN Reason: seizure Metoclopramide HCl (Reglan Injection -) 10 mg IVPUSH Q6H PRN PRN Reason: NAUSEA AND/OR VOMITING Last Admin: 12/10/18 06:28 Dose: 10 mg Ondansetron HCl (Zofran Injection) 4 mg IVPUSH Q6H PRN PRN Reason: NAUSEA AND/OR VOMITING Last Admin: 12/08/18 23:10 Dose: 4 mg Topiramate (Topamax -) 25 mg PO BID [facility] Last Admin: 12/10/18 10:01 Dose: 25 mg - Objective Vital Signs: Vital Signs Temperature 97.8 F 12/10/18 08:15 Pulse Rate 49 L 12/10/18 08:55 Respiratory Rate 18 12/10/18 08:55 Blood Pressure 104/59 L 12/10/18 08:55 O2 Sat by Pulse Oximetry (%) 98 12/09/18 21:00 Constitutional: Yes: No Distress, Calm Cardiovascular: Yes: S1, S2 Respiratory: Yes: Regular, CTA Bilaterally Gastrointestinal: Yes: Normal Bowel Sounds, Soft Musculoskeletal: Yes: WNL Extremities: Yes: WNL Neurological: Yes: Alert, Oriented Psychiatric: Yes: Alert, Oriented Labs: CBC, BMP 12/10/18 06:00 12/10/18 06:00 INR, PTT INR 1.13 (0.83-1.09) H 12/05/18 12:00 Assessment/Plan Problem List - Problems (1) Dengue fever Code(s): A90 - DENGUE FEVER [CLASSICAL DENGUE] (2) Malaria Code(s): B54 - UNSPECIFIED MALARIA (3) Abdominal pain Code(s): R10.9 - UNSPECIFIED ABDOMINAL PAIN Qualifiers: Abdominal location: left lower quadrant Qualified Code(s): R10.32 - Left lower quadrant pain (4) Epilepsy Code(s): G40.909 - EPILEPSY, UNSP, NOT INTRACTABLE, WITHOUT STATUS EPILEPTICUS (5) Prophylactic measure Code(s): Z29.9 - ENCOUNTER FOR PROPHYLACTIC MEASURES, UNSPECIFIED (6) Fever Code(s): R50.9 - FEVER, UNSPECIFIED (7) SIRS (systemic inflammatory response syndrome Code(s): R65.10 - SIRS OF NON-INFECTIOUS ORIGIN W/O ACUTE ORGAN DYSFUNCTION plan continue current mgmt will stop adelina
[2018-12-10] MEDS: Lacosamide 200 MG/20 ML VIAL IVPB SCH (10:37)
--- NOTE | 2018-12-10 11:57 | PN ---
Progress Note, Physician Chief Complaint: weakness but feels better today and is able to ambulate in hallways wants to shower History of Present Illness: Patient is a 48 year old female with a significant past medical history of epilepsy, migraines. She presents to the ED on 12/05/18 with c/o of fever, general malaise, body aches and headaches since 12/04/18. She had a recently traveled to [place]. On admission, she stated she was bitten by mosquitos. She also states that there were 4 people that she knew in the area that were sick with Dengue Fever. - Current Medication List Current Medications: Active Medications Acetaminophen (Tylenol -) 500 mg PO Q6H PRN PRN Reason: FEVER Acetaminophen/Butalbital/Caffeine (Fioricet -) 1 tablet PO Q6H PRN PRN Reason: HEADACHE Last Admin: 12/10/18 06:28 Dose: 1 tablet Heparin Sodium (Porcine) (Heparin -) 5,000 unit SQ TID [facility] Last Admin: 12/10/18 05:58 Dose: Not Given Lacosamide (Vimpat Injection -) 50 mg IVPB BID [facility] Last Admin: 12/10/18 10:37 Dose: 50 mg Levetiracetam (Keppra -) 1,000 mg PO BID [facility] Last Admin: 12/10/18 10:01 Dose: 1,000 mg Lorazepam (Ativan Injection -) 1 mg IVPUSH Q4H PRN PRN Reason: seizure Metoclopramide HCl (Reglan Injection -) 10 mg IVPUSH Q6H PRN PRN Reason: NAUSEA AND/OR VOMITING Last Admin: 12/10/18 06:28 Dose: 10 mg Ondansetron HCl (Zofran Injection) 4 mg IVPUSH Q6H PRN PRN Reason: NAUSEA AND/OR VOMITING Last Admin: 12/08/18 23:10 Dose: 4 mg Topiramate (Topamax -) 25 mg PO BID [facility] Last Admin: 12/10/18 10:01 Dose: 25 mg - Objective Vital Signs: Vital Signs Temperature 97.8 F 12/10/18 08:15 Pulse Rate 49 L 12/10/18 08:55 Respiratory Rate 18 12/10/18 08:55 Blood Pressure 104/59 L 12/10/18 08:55 O2 Sat by Pulse Oximetry (%) 98 12/09/18 21:00 Constitutional: Yes: No Distress, Calm HENT: Yes: Atraumatic Neck: Yes: Supple Cardiovascular: Yes: Regular Rate and Rhythm Respiratory: Yes: Regular Gastrointestinal: Yes: Normal Bowel Sounds, Soft ...Rectal Exam: Yes: Deferred Genitourinary: Yes: WNL Musculoskeletal: Yes: WNL Labs: CBC, BMP 12/10/18 06:00 12/10/18 06:00 INR, PTT INR 1.13 (0.83-1.09) H 12/05/18 12:00 Problem List - Problems (1) Severe sepsis Assessment/Plan: resolved discontinue antibiotics per ID monitor fever curve Code(s): A41.9 - SEPSIS, UNSPECIFIED ORGANISM; R65.20 - SEVERE SEPSIS WITHOUT SEPTIC SHOCK (2) Epilepsy Assessment/Plan: patient with two witnessed seizures on 12/08/18, non since on keppra bid, topamax 25 bid and vimpat 50bid neuro following. eeg pending official read. Code(s): G40.909 - EPILEPSY, UNSP, NOT INTRACTABLE, WITHOUT STATUS EPILEPTICUS (3) Dengue fever Assessment/Plan: patient with recent contact in household with multiple people with know Dengue fever, multiple bites noted on lower extremities presently refusing LP. blood smear, lymes and viral workup up per ID is pending monitor fever curve Code(s): A90 - DENGUE FEVER [CLASSICAL DENGUE] (4) Fever Assessment/Plan: on tylenol prn. Code(s): R50.9 - FEVER, UNSPECIFIED (5) Malaria Assessment/Plan: in endemic tropical area c/w supportive treatment, IVF, antiemetics, tylenol Code(s): B54 - UNSPECIFIED MALARIA (6) Periorbital edema Assessment/Plan: resolved. Code(s): R60.0 - LOCALIZED EDEMA (7) Thrombocytopenia Assessment/Plan: platelets improving Code(s): D69.6 - THROMBOCYTOPENIA, UNSPECIFIED (8) Abnormal AST and ALT Assessment/Plan: liver u/s show fatty liver. no other acute pathology minimize use of tylenol Code(s): R74.8 - ABNORMAL LEVELS OF OTHER SERUM ENZYMES (9) DVT prophylaxis Assessment/Plan: on heparin Code(s): Z29.9 - ENCOUNTER FOR PROPHYLACTIC MEASURES, UNSPECIFIED (10) Prophylactic measure Assessment/Plan: fen d/c ivf monitor electrolytes low salt diet heparin tid Code(s): Z29.9 - ENCOUNTER FOR PROPHYLACTIC MEASURES, UNSPECIFIED Visit type - Emergency Visit Emergency Visit: Yes ED Registration Date: 12/05/18 Care time: The patient presented to the Emergency Department on the above date and was hospitalized for further evaluation of their emergent condition. - New Patient This patient is new to me today: No - Critical Care Critical Care patient: No - Discharge Referral Referred to [facility] No
[2018-12-10 12:13] LABS: ANISOCYTOSIS 0; MACROCYTOSIS 0; PLATELET ESTIMATE DECREASED
[2018-12-10] MEDS ORDERED: MECLIZINE HCL 12.5 MG TABLET PO ONE (13:20)
[2018-12-10] MEDS: MECLIZINE HCL 25 MG TABLET (FP) PO SCH ×2 (17:17→23:49)
[2018-12-10] MEDS: LACOSAMIDE 50 MG TABLET PO SCH (21:26)
[2018-12-11] MEDS: MECLIZINE HCL 25 MG TABLET (FP) PO SCH ×2 (05:44→13:19)
[2018-12-11] MEDS: HEPARIN NA (PORCINE) 5,000 UNITS/ML 1ML VIAL SQ SCH ×2 (05:44→13:19)
[2018-12-11 07:56] LABS: BASO % 0.7 % (0-2.0); EOS % 1.4 % (0-4.5); HEMATOCRIT 35.8 % (32.4-45.2); HEMOGLOBIN 12.7 GM/dL (10.7-15.3); LYMPH % 48.8 % (8-40); MCHC 35.4 g/dl (32.0-36.0); MEAN CELL VOLUME 90.4 fl (80-96); MEAN PLT VOLUME 8.7 fl (7.5-11.1); MONO % 23.6 % (3.8-10.2); NEUT % 25.5 % (42.8-82.8); PLATELET COUNT 115 K/MM3 (134-434); RBC 3.96 M/mm3 (3.60-5.2); RDW 12.2 % (11.6-15.6); WHITE BLOOD COUNT 3.9 K/mm3 (4.0-10.0)
[2018-12-11 08:19] LABS: ALBUMIN 3.2 g/dl (3.4-5.0); BILIRUBIN,TOTAL 0.4 mg/dL (0.2-1); CALCIUM 8.6 mg/dL (8.5-10.1); MAGNESIUM 2.5 mg/dL (1.8-2.4)
[2018-12-11] MEDS: TOPIRAMATE 25 MG TABLET (FP) PO SCH (09:52)
[2018-12-11] MEDS: LACOSAMIDE 50 MG TABLET PO SCH (09:52)
[2018-12-11] MEDS: levETIRAcetam 500 MG TABLET (FP) PO SCH (09:52)
--- NOTE | 2018-12-11 09:53 | PN ---
Progress Note, Physician History of Present Illness: patient stable no new issues has been afebrile now - Current Medication List Current Medications: Active Medications Acetaminophen (Tylenol -) 500 mg PO Q6H PRN PRN Reason: FEVER Acetaminophen/Butalbital/Caffeine (Fioricet -) 1 tablet PO Q6H PRN PRN Reason: HEADACHE Last Admin: 12/10/18 14:12 Dose: 1 tablet Heparin Sodium (Porcine) (Heparin -) 5,000 unit SQ TID [facility] Last Admin: 12/11/18 05:44 Dose: Not Given Lacosamide (Vimpat -) 50 mg PO BID [facility] Last Admin: 12/10/18 21:26 Dose: 50 mg Levetiracetam (Keppra -) 1,000 mg PO BID [facility] Last Admin: 12/10/18 21:26 Dose: 1,000 mg Lorazepam (Ativan Injection -) 1 mg IVPUSH Q4H PRN PRN Reason: seizure Meclizine HCl (Antivert -) 25 mg PO Q6HPO [facility] Last Admin: 12/11/18 05:44 Dose: 25 mg Metoclopramide HCl (Reglan Injection -) 10 mg IVPUSH Q6H PRN PRN Reason: NAUSEA AND/OR VOMITING Last Admin: 12/10/18 14:06 Dose: 10 mg Ondansetron HCl (Zofran Injection) 4 mg IVPUSH Q6H PRN PRN Reason: NAUSEA AND/OR VOMITING Last Admin: 12/08/18 23:10 Dose: 4 mg Topiramate (Topamax -) 25 mg PO BID [facility] Last Admin: 12/10/18 21:26 Dose: 25 mg - Objective Vital Signs: Vital Signs Temperature 97.6 F 12/11/18 09:00 Pulse Rate 57 L 12/11/18 09:00 Respiratory Rate 18 12/11/18 09:00 Blood Pressure 103/66 12/11/18 09:00 O2 Sat by Pulse Oximetry (%) 97 12/10/18 21:00 Constitutional: Yes: No Distress, Calm Cardiovascular: Yes: Regular Rate and Rhythm Respiratory: Yes: Regular, CTA Bilaterally Gastrointestinal: Yes: Normal Bowel Sounds, Soft Musculoskeletal: Yes: WNL Extremities: Yes: WNL Neurological: Yes: Alert, Oriented Psychiatric: Yes: Alert, Oriented Labs: CBC, BMP 12/11/18 07:15 12/11/18 07:15 INR, PTT INR 1.13 (0.83-1.09) H 12/05/18 12:00 Assessment/Plan Problem List - Problems (1) Dengue fever Code(s): A90 - DENGUE FEVER [CLASSICAL DENGUE] (2) Malaria Code(s): B54 - UNSPECIFIED MALARIA (3) Abdominal pain Code(s): R10.9 - UNSPECIFIED ABDOMINAL PAIN Qualifiers: Abdominal location: left lower quadrant Qualified Code(s): R10.32 - Left lower quadrant pain (4) Epilepsy Code(s): G40.909 - EPILEPSY, UNSP, NOT INTRACTABLE, WITHOUT STATUS EPILEPTICUS (5) Prophylactic measure Code(s): Z29.9 - ENCOUNTER FOR PROPHYLACTIC MEASURES, UNSPECIFIED (6) Fever Code(s): R50.9 - FEVER, UNSPECIFIED (7) SIRS (systemic inflammatory response syndrome Code(s): R65.10 - SIRS OF NON-INFECTIOUS ORIGIN W/O ACUTE ORGAN DYSFUNCTION plan continue current mgmt rest as per the team
[2018-12-11 09:58] LABS: ANISOCYTOSIS 0; MACROCYTOSIS 0; PLATELET ESTIMATE DECREASED
--- NOTE | 2018-12-11 11:08 | PN ---
Progress Note (short form) - Note Progress Note: Neurology Chief Complaint: body aches & body aches x 2 days, fever x 1 day. Recently in [place]-2 days prior to admission History of Present Illness: 48yo F with PMH of Epilepsy, Migraines presenting to ED with family with complaints of fever, body aches and headache since day prior to admission. Pt returned from a 15 day trip to [place] day prior to admission and since the return , she has had fevers, body aches and headache. She took 4 Advil day prior to admission without much relief and 2 Motrin day of admission. She says she was bitten by mosquitos. She also states that there were 4 people that she knew in the area that were sick with Dengue Fever. She stated that the headache is all around her head, associated with photophobia and pain in her neck. She also endorsed abdominal pain (only when touched), nausea, joint pains. She also notes dysuria, frequency and urgency. Denies rashes, diarrhea, constipation, vomiting, cough, sore throat, congestion. Denied history of STDs, Herpes, HIV. Consulted for headache which she reports h/o migraines for over 12 years but this headache is different more diffuse and achy. Likely tension type due to underlying infection. patient on Keppra and no seizures overnight, still awaiting EEG completion. On Wednesday, had second event during the day and therefore I had started her on Vimpat 50 mg twice a day. No seizure since and patient wants to go home, defer to ID regarding this. Neurologically stable and should continue her current medication regiment and have outpatient follow up. Allergies Allergy/AdvReac Type Severity Reaction Status Date / Time Iodinated Contrast Media Allergy Hives Verified 12/05/18 11:49 [Iodinated Contrast Media - IV Dye] Active Medications Acetaminophen (Tylenol -) 500 mg PO Q6H PRN PRN Reason: FEVER Acetaminophen/Butalbital/Caffeine (Fioricet -) 1 tablet PO Q6H PRN PRN Reason: HEADACHE Last Admin: 12/10/18 14:12 Dose: 1 tablet Heparin Sodium (Porcine) (Heparin -) 5,000 unit SQ TID [facility] Last Admin: 12/11/18 05:44 Dose: Not Given Lacosamide (Vimpat -) 50 mg PO BID [facility] Last Admin: 12/11/18 09:52 Dose: 50 mg Levetiracetam (Keppra -) 1,000 mg PO BID [facility] Last Admin: 12/11/18 09:52 Dose: 1,000 mg Lorazepam (Ativan Injection -) 1 mg IVPUSH Q4H PRN PRN Reason: seizure Meclizine HCl (Antivert -) 25 mg PO Q6HPO [facility] Last Admin: 12/11/18 05:44 Dose: 25 mg Metoclopramide HCl (Reglan Injection -) 10 mg IVPUSH Q6H PRN PRN Reason: NAUSEA AND/OR VOMITING Last Admin: 12/10/18 14:06 Dose: 10 mg Ondansetron HCl (Zofran Injection) 4 mg IVPUSH Q6H PRN PRN Reason: NAUSEA AND/OR VOMITING Last Admin: 12/08/18 23:10 Dose: 4 mg Topiramate (Topamax -) 25 mg PO BID [facility] Last Admin: 12/11/18 09:52 Dose: 25 mg Physical Examination Vital Signs: Vital Signs Period Temp Pulse Resp BP Sys/Davis Pulse Ox Last 24 Hr 97.4 F-98.9 F 44-67 18-20 90-112/55-66 97-97 Constitutional: Yes: Well Nourished, Moderate Distress Eyes: Yes: WNL, Conjunctiva Clear, EOM Intact HENT: Yes: WNL, Atraumatic, Normocephalic Neck: Yes: WNL, Supple, Trachea Midline Cardiovascular: Yes: WNL, Tachycardia Respiratory: Yes: Regular, CTA Bilaterally, SOB on Exertion Gastrointestinal: Yes: WNL, Normal Bowel Sounds, Soft, Tenderness (to RLQ/LLQ) ...Rectal Exam: Yes: Deferred Renal/: Yes: WNL Breast(s): Yes: WNL Musculoskeletal: Yes: Muscle Pain, Muscle Weakness Extremities: Yes: WNL Edema: No Peripheral Pulses WNL: Yes Integumentary: Yes: WNL Neurological: AWake, alert, conversive, moves all extremities equally, sensory intact, gait defered CBCD WBC 3.9 K/mm3 (4.0-10.0) L 12/11/18 07:15 RBC 3.96 M/mm3 (3.60-5.2) 12/11/18 07:15 Hgb 12.7 GM/dL (10.7-15.3) 12/11/18 07:15 Hct 35.8 % (32.4-45.2) 12/11/18 07:15 MCV 90.4 fl (80-96) 12/11/18 07:15 MCHC 35.4 g/dl (32.0-36.0) 12/11/18 07:15 RDW 12.2 % (11.6-15.6) 12/11/18 07:15 Plt Count 115 K/MM3 (134-434) L 12/11/18 07:15 MPV 8.7 fl (7.5-11.1) 12/11/18 07:15 CMP Sodium 139 mmol/L (136-145) 12/11/18 07:15 Potassium 4.0 mmol/L (3.5-5.1) 12/11/18 07:15 Chloride 107 mmol/L (98-107) 12/11/18 07:15 Carbon Dioxide 24 mmol/L (21-32) 12/11/18 07:15 Anion Gap 8 MMOL/L (8-16) 12/11/18 07:15 BUN 12.0 mg/dL (7-18) 12/11/18 07:15 Creatinine 1.0 mg/dL (0.55-1.3) 12/11/18 07:15 Random Glucose 89 mg/dL (74-106) 12/11/18 07:15 Calcium 8.6 mg/dL (8.5-10.1) 12/11/18 07:15 Total Bilirubin 0.4 mg/dL (0.2-1) 12/11/18 07:15 AST 103 U/L (15-37) H 12/11/18 07:15 ALT 124 U/L (13-61) H 12/11/18 07:15 Alkaline Phosphatase 70 U/L (45-117) 12/11/18 07:15 Total Protein 7.0 g/dl (6.4-8.2) 12/11/18 07:15 Albumin 3.2 g/dl (3.4-5.0) L 12/11/18 07:15 CARDIAC ENZYMES Troponin I < 0.02 ng/ml (0.00-0.05) 12/05/18 12:13 Imaging - Results Chest X-ray: Image Reviewed (NO EFFSUION/INFILTARTES) Cat Scan: Report Reviewed (no acute pathology) Plan 48yo F with PMH of Epilepsy, Migraines presenting to ED with family with complaints of fever, body aches and headache since day prior to admission. Pt returned from a 15 day trip to [place] day prior to admission and since the return , she has had fevers, body aches and headache. She took 4 Advil day prior to admission without much relief and 2 Motrin day of admission. She says she was bitten by mosquitos. She also states that there were 4 people that she knew in the area that were sick with Dengue Fever. She stated that the headache is all around her head, associated with photophobia and pain in her neck. She also endorsed abdominal pain (only when touched), nausea, joint pains. She also notes dysuria, frequency and urgency. Denies rashes, diarrhea, constipation, vomiting, cough, sore throat, congestion. Denied history of STDs, Herpes, HIV. Consulted for headache which she reports h/o migraines for over 12 years but this headache is different more diffuse and achy. Likely tension type due to underlying infection. patient on Keppra and no seizures overnight, still awaiting EEG completion. On Wednesday, had second event during the day and therefore I had started her on Vimpat 50 mg twice a day. Was notified by the hospitalist that she sees Dr. Delgado as outpatient were contacted and we discussed the case. He asked that I continue to follow the patient. spoke with ID Wednesday, and continue to get treatment for underlying infection. Feeling better today and no seizure recurrence. Supportive care, IV abx as needed. Cognitive rest recommended. Continue home seizure medications. Maintain adequate hydration. Infection can lower seizure threshold, recommend aggressive management of underlying infection. Neurologically stable and should continue her current medication regiment and have outpatient follow up
--- NOTE | 2018-12-11 11:22 | PN ---
Progress Note, Physician Chief Complaint: feels better, wants to go home asking her to ambulate before we discharge her History of Present Illness: Patient is a 48 year old female with a significant past medical history of epilepsy, migraines. She presents to the ED on 12/05/18 with c/o of fever, general malaise, body aches and headaches since 12/04/18. She had a recently traveled to [place]. On admission, she stated she was bitten by mosquitos. She also states that there were 4 people that she knew in the area that were sick with Dengue Fever. - Current Medication List Current Medications: Active Medications Acetaminophen/Butalbital/Caffeine (Fioricet -) 1 tablet PO Q6H PRN PRN Reason: HEADACHE Last Admin: 12/10/18 14:12 Dose: 1 tablet Heparin Sodium (Porcine) (Heparin -) 5,000 unit SQ TID [facility] Last Admin: 12/11/18 05:44 Dose: Not Given Lacosamide (Vimpat -) 50 mg PO BID [facility] Last Admin: 12/11/18 09:52 Dose: 50 mg Levetiracetam (Keppra -) 1,000 mg PO BID [facility] Last Admin: 12/11/18 09:52 Dose: 1,000 mg Lorazepam (Ativan Injection -) 1 mg IVPUSH Q4H PRN PRN Reason: seizure Meclizine HCl (Antivert -) 25 mg PO Q6HPO [facility] Last Admin: 12/11/18 05:44 Dose: 25 mg Metoclopramide HCl (Reglan Injection -) 10 mg IVPUSH Q6H PRN PRN Reason: NAUSEA AND/OR VOMITING Last Admin: 12/10/18 14:06 Dose: 10 mg Ondansetron HCl (Zofran Injection) 4 mg IVPUSH Q6H PRN PRN Reason: NAUSEA AND/OR VOMITING Last Admin: 12/08/18 23:10 Dose: 4 mg Topiramate (Topamax -) 25 mg PO BID [facility] Last Admin: 12/11/18 09:52 Dose: 25 mg - Objective Vital Signs: Vital Signs Temperature 97.6 F 12/11/18 09:00 Pulse Rate 57 L 12/11/18 09:00 Respiratory Rate 18 12/11/18 09:00 Blood Pressure 103/66 12/11/18 09:00 O2 Sat by Pulse Oximetry (%) 97 12/11/18 09:00 Constitutional: Yes: Well Nourished, No Distress Eyes: Yes: WNL HENT: Yes: Atraumatic Neck: Yes: Supple Cardiovascular: Yes: Regular Rate and Rhythm Respiratory: Yes: Regular Gastrointestinal: Yes: Normal Bowel Sounds ...Rectal Exam: Yes: WNL Musculoskeletal: Yes: WNL Extremities: Yes: WNL Peripheral Pulses WNL: No Integumentary: Yes: WNL Neurological: Yes: WNL, Alert, Oriented Psychiatric: Yes: Alert, Oriented Labs: CBC, BMP 12/11/18 07:15 12/11/18 07:15 INR, PTT INR 1.13 (0.83-1.09) H 12/05/18 12:00 Problem List - Problems (1) Severe sepsis Assessment/Plan: resolved discontinue antibiotics per ID monitor fever curve Code(s): A41.9 - SEPSIS, UNSPECIFIED ORGANISM; R65.20 - SEVERE SEPSIS WITHOUT SEPTIC SHOCK (2) Epilepsy Assessment/Plan: patient with two witnessed seizures on 12/08/18, non since on keppra bid, topamax 25 bid and vimpat 50bid neuro following. eeg pending official read. Code(s): G40.909 - EPILEPSY, UNSP, NOT INTRACTABLE, WITHOUT STATUS EPILEPTICUS (3) Dengue fever Assessment/Plan: patient with recent contact in household with multiple people with know Dengue fever, multiple bites noted on lower extremities presently refusing LP. blood smear, lymes and viral workup up per ID is pending monitor fever curve Code(s): A90 - DENGUE FEVER [CLASSICAL DENGUE] (4) Fever Assessment/Plan: on tylenol prn. Code(s): R50.9 - FEVER, UNSPECIFIED (5) Malaria Assessment/Plan: in endemic tropical area c/w supportive treatment, IVF, antiemetics, tylenol Code(s): B54 - UNSPECIFIED MALARIA (6) Periorbital edema Assessment/Plan: resolved. Code(s): R60.0 - LOCALIZED EDEMA (7) Thrombocytopenia Assessment/Plan: platelets improving Code(s): D69.6 - THROMBOCYTOPENIA, UNSPECIFIED (8) Abnormal AST and ALT Assessment/Plan: liver u/s show fatty liver. no other acute pathology minimize use of tylenol Code(s): R74.8 - ABNORMAL LEVELS OF OTHER SERUM ENZYMES (9) DVT prophylaxis Assessment/Plan: on heparin Code(s): Z29.9 - ENCOUNTER FOR PROPHYLACTIC MEASURES, UNSPECIFIED (10) Prophylactic measure Assessment/Plan: fen d/c ivf monitor electrolytes low salt diet heparin tid Code(s): Z29.9 - ENCOUNTER FOR PROPHYLACTIC MEASURES, UNSPECIFIED Visit type - Emergency Visit Emergency Visit: Yes ED Registration Date: 12/05/18 Care time: The patient presented to the Emergency Department on the above date and was hospitalized for further evaluation of their emergent condition. - New Patient This patient is new to me today: No - Critical Care Critical Care patient: No - Discharge Referral Referred to [facility] Med P.C.: No
[2018-12-11 14:51] VITALS: BP 96/52; PULSE 50; TEMP 98.9
--- NOTE | 2018-12-11 15:18 | DS ---
Physical Exam: SUBJECTIVE: Patient seen and examined at the bedside. wants to go home. son wants to take her home. patient denies any dizziness, shortness of breath. OBJECTIVE: Patient is a 48 year old female with a significant past medical history of epilepsy, migraines. She presents to the ED on 12/05/18 with c/o of fever, general malaise, body aches and headaches since 12/04/18. She had a recently traveled to [place]. On admission, she stated she was bitten by mosquitos. She also states that there were 4 people that she knew in the area that were sick with Dengue Fever. Vital Signs Period Temp Pulse Resp BP Sys/Davis Pulse Ox Last 24 Hr 97.4 F-98.9 F 44-69 18-20 90-108/52-69 97-97 PHYSICAL EXAM GENERAL: The patient is awake, alert, and fully oriented, in no acute distress. HEAD: Normal with no signs of trauma. EYES: PERRL, extraocular movements intact, sclera anicteric, conjunctiva clear. ENT: Ears normal, nares patent, oropharynx clear without exudates, moist mucous membranes. NECK: Trachea midline, full range of motion, supple. LUNGS: Breath sounds equal, clear to auscultation bilaterally HEART: Regular rate and rhythm ABDOMEN: Soft, nontender, nondistended, normoactive bowel sounds, no guarding, no rebound, no hepatosplenomegaly, no masses. EXTREMITIES: no edema. NEUROLOGICAL Normal speech, gait steady but RW ordered as patient c/o of dizziness with ambulation. PSYCH: Normal mood, normal affect. SKIN: Warm, dry, normal turgor, no rashes or lesions noted. LABS Laboratory Results - last 24 hr 12/08/18 12/11/18 12/11/18 11:00 07:15 07:15 WBC 3.9 L RBC 3.96 Hgb 12.7 Hct 35.8 MCV 90.4 MCH 32.0 MCHC 35.4 RDW 12.2 Plt Count 115 L MPV 8.7 Absolute Neuts (auto) 1.0 L Neutrophils % 25.5 L D Neutrophils % (Manual) 38.0 L Band Neutrophils % 0.0 Lymphocytes % 48.8 H D Lymphocytes % (Manual) 44.0 H Monocytes % 23.6 H Monocytes % (Manual) 5 Eosinophils % 1.4 D Eosinophils % (Manual) 2.0 D Basophils % 0.7 Basophils % (Manual) 1.0 Myelocytes % (Man) 0 Promyelocytes % (Man) 0 Nucleated RBC % 0 Metamyelocytes 0 Hypochromia 0 Platelet Estimate Decreased Polychromasia 0 Poikilocytosis 0 Anisocytosis 0 Microcytosis 0 Macrocytosis 0 Sodium 139 Potassium 4.0 Chloride 107 Carbon Dioxide 24 Anion Gap 8 BUN 12.0 Creatinine 1.0 Est GFR (CKD-EPI)AfAm 78.24 Est GFR (CKD-EPI)NonAf 67.51 Random Glucose 89 Calcium 8.6 Magnesium 2.5 H Total Bilirubin 0.4 AST 103 H ALT 124 H Alkaline Phosphatase 70 Total Protein 7.0 Albumin 3.2 L Levetiracetam 34.7 HOSPITAL COURSE: Date of Admission:12/05/18 Date of Discharge: 12/11/18 Minutes to complete discharge: 60 Discharge Summary Reason For Visit: FEVER, HEADACHE Current Active Problems Abnormal AST and ALT (Acute) DVT prophylaxis (Acute) Dengue fever (Acute) Fever (Acute) Malaria (Acute) Periorbital edema (Acute) Prophylactic measure (Acute) SIRS (systemic inflammatory response syndrome) (Acute) Sepsis (Acute) Severe sepsis (Acute) Thrombocytopenia (Acute) Condition: Improved - Instructions Diet, Activity, Other Instructions: Mrs Madrigal: You were admitted for possible dengue fever or malaria. You were treated with antibiotics and intravenous fluids. While you were in the hospital we increased your seizure medications. Continue to hydrate adequately and have your blood work repeated with your primary doctor by calling for an appointment. Here are our recommendations: Seizure: Please call Dr. Delgado for results of the EEG that you had done here. Here is your new medication list: -Keppra 1000mg TWICE PER DAY -Vimpat 50mg TWICE PER DAY -Topamax 25mg TWICE PER DAY -Antivert, take every 6 hours as needed for dizziness A rolling walker has been called into your pharmacy. Please call me with any questions. Balbina Suggs [employer] [phone] [facility] Thank you for allowing us to care for you. Referrals: Tony Delgado DO [Staff Physician] - (call for an appointment ) Disposition: HOME - Home Medications Comprehensive Discharge Medication List: Ambulatory Orders Levetiracetam [Keppra] 1,000 mg PO BID 03/17/15 Lacosamide [Vimpat -] 50 mg PO BID #120 tab MDD 2 tabs 12/11/18 Meclizine HCl [Antivert -] 25 mg PO Q6HPO #60 tablet 12/11/18 Topiramate [Topamax -] 25 mg PO BID #120 tablet 12/11/18 Walker [Ultra-Light Rollator] 1 each [facility] DAILY #1 each 12/11/18 levETIRAcetam [Keppra -] 1,000 mg PO BID #0 tablet 12/11/18 levETIRAcetam [Keppra -] 1,000 mg PO BID #120 tablet 12/11/18 Problem List - Problems (1) Severe sepsis Assessment/Plan: resolved discontinue antibiotics per ID no fevers, vitals stable. Code(s): A41.9 - SEPSIS, UNSPECIFIED ORGANISM; R65.20 - SEVERE SEPSIS WITHOUT SEPTIC SHOCK (2) Epilepsy Assessment/Plan: patient with two witnessed seizures on 12/08/18, none since on keppra bid, topamax 25 bid and vimpat 50bid. Medications called into her pharmacy. She will follow up with Dr. Delgado for results of the EEG. Code(s): G40.909 - EPILEPSY, UNSP, NOT INTRACTABLE, WITHOUT STATUS EPILEPTICUS (3) Dengue fever Assessment/Plan: patient with recent contact in household with multiple people with know Dengue fever, multiple bites noted on lower extremities She is refusing LP. blood smear, lymes and viral workup up per ID is pending Code(s): A90 - DENGUE FEVER [CLASSICAL DENGUE] (4) Fever Assessment/Plan: on tylenol prn. Code(s): R50.9 - FEVER, UNSPECIFIED (5) Malaria Assessment/Plan: in endemic tropical area c/w supportive treatment, given IVF, antiemetics, tylenol Code(s): B54 - UNSPECIFIED MALARIA (6) Periorbital edema Assessment/Plan: resolved. Code(s): R60.0 - LOCALIZED EDEMA (7) Thrombocytopenia Assessment/Plan: platelets improving Code(s): D69.6 - THROMBOCYTOPENIA, UNSPECIFIED (8) Abnormal AST and ALT Assessment/Plan: liver u/s show fatty liver. no other acute pathology minimize use of tylenol and have labs repeated as an outpatient. Code(s): R74.8 - ABNORMAL LEVELS OF OTHER SERUM ENZYMES (9) DVT prophylaxis Assessment/Plan: on heparin Code(s): Z29.9 - ENCOUNTER FOR PROPHYLACTIC MEASURES, UNSPECIFIED (10) Prophylactic measure Code(s): Z29.9 - ENCOUNTER FOR PROPHYLACTIC MEASURES, UNSPECIFIED This patient is new to me today: No Emergency Visit: Yes ED Registration Date: 12/05/18 Care time: The patient presented to the Emergency Department on the above date and was hospitalized for further evaluation of their emergent condition. Critical Care patient: No - Discharge Referral Referred to [facility] Med P.C.: No
== END 2018-12-11 17:16 | disposition home or self-care (01) | DRG 720 ==
LOC: JER 11:41 → JERBED 15:20 → J5S 21:19
PROVIDERS: ATTEND Nurse Practitioner Family
DX: A41.9 Sepsis, unspecified organism (principal); R65.20 Severe sepsis without septic shock; G40.909 Epilepsy, unspecified, not intractable, without status epilepticus; G43.909 Migraine, unspecified, not intractable, without status migrainosus; R10.9 Unspecified abdominal pain; H05.229 Edema of unspecified orbit; R50.9 Fever, unspecified; D72.819 Decreased white blood cell count, unspecified; R51 Headache; H53.149 Visual discomfort, unspecified; R11.0 Nausea; M54.2 Cervicalgia; R60.0 Localized edema; D69.6 Thrombocytopenia, unspecified; R94.5 Abnormal results of liver function studies; K76.0 Fatty (change of) liver, not elsewhere classified; A90 Dengue fever [classical dengue]; B54 Unspecified malaria; E87.2 Acidosis
CPT/HCPCS: 36415; 70450-TC; 71045-TC-FY; 76705-TC; 80053; 80177; 81003; 82803; 83605; 83735; 84132; 84484; 84703; 85025; 85610; 85730; 86618; 86708; 86790; 87040; 87086; 87207; 93005; 93010; 95816; 97116-GP; 97161-GP; 99283-25; J0131; J1644; J7030

== ENCOUNTER 2018-12-16 21:08 | Emergency (ER) | payer OTHER ==
[2018-12-16 21:30] VITALS: BP 138/89; PULSE 101; TEMP 98.8; BMI 28.6
--- NOTE | 2018-12-16 21:31 | PDOC ---
Rapid Medical Evaluation Chief Complaint: Pain Time Seen by Provider: 12/16/18 21:26 Medical Evaluation: Allergies Allergy/AdvReac Type Severity Reaction Status Date / Time Iodinated Contrast Media Allergy Hives Verified 12/05/18 11:49 [Iodinated Contrast Media - IV Dye] 12/16/18 21:29 I have performed a brief in-person evaluation of this patient. The patient presents with a chief complaint of: Lower abd pain w/ nausea and [place] since yesterday. Admitted to [facility] for dengue fever after travelling to [place] and discharged 3 days ago. H/o epilepsy Pertinent physical exam findings:stable I have ordered the following:labs The patient will proceed to the ED for further evaluation. Discharge Disposition - Diagnosis Lower abdominal pain - Referrals - Patient Instructions - Post Discharge Activity
[2018-12-16 22:19] LABS: PH,URINE 6.5 (5.0-8.0); URINE APPEARANCE CLEAR; URINE BILIRUBIN NEGATIVE (NEGATIVE); URINE COLOR YELLOW; URINE GLUCOSE (UA) NEGATIVE (NEGATIVE); URINE KETONE NEGATIVE (NEGATIVE); URINE LEUK ESTERASE NEGATIVE (NEGATIVE); URINE NITRITE NEGATIVE (NEGATIVE); URINE PROTEIN NEGATIVE (NEGATIVE); URINE UROBILINOGEN 0.2 mg/dL (0.2-1.0)
[2018-12-16 22:21] LABS: BASO % 0.5 % (0-2.0); EOS % 1.5 % (0-4.5); HEMATOCRIT 36.6 % (32.4-45.2); HEMOGLOBIN 12.6 GM/dL (10.7-15.3); LYMPH % 34.8 % (8-40); MCH 31.4 pg (25.7-33.7); MCHC 34.3 g/dl (32.0-36.0); MEAN CELL VOLUME 91.7 fl (80-96); MEAN PLT VOLUME 7.6 fl (7.5-11.1); MONO % 12.2 % (3.8-10.2); PLATELET COUNT 311 K/MM3 (134-434); RDW 12.4 % (11.6-15.6); WHITE BLOOD COUNT 5.9 K/mm3 (4.0-10.0)
[2018-12-16 22:49] LABS: ALBUMIN 3.8 g/dl (3.4-5.0); BILIRUBIN,TOTAL 0.2 mg/dL (0.2-1); CALCIUM 9.2 mg/dL (8.5-10.1); CREATININE 0.7 mg/dL (0.55-1.3); POTASSIUM 4.1 mmol/L (3.5-5.1); TOT PROT 7.7 g/dl (6.4-8.2)
[2018-12-16] MEDS ORDERED: SODIUM CHLORIDE 0.9% 500 ML INFUS.BAG IV ONE (23:25)
[2018-12-16] MEDS ORDERED: ACETAMINOPHEN 1000 MG/100 ML VIAL (NON FORMULARY) IVPB ONE (23:25)
[2018-12-16] MEDS ORDERED: MECLIZINE HCL 25 MG TABLET (FP) PO ONE (23:25)
--- NOTE | 2018-12-16 23:33 | PDOC ---
History of Present Illness - General Chief Complaint: Pain Stated Complaint: ABD PAIN Time Seen by Provider: 12/16/18 21:26 - History of Present Illness Initial Comments: Ms. Madrigal is a 48 y/o female with hx of epilepsy and dengue fever (d/c 3 days ago), presenting today with 1 day of left sided flank pain, diffuse abdominal pain, low grade fever without chills, nausea without vomiting, mild shortness of breath. Reports that she was in [place] and had dengue fever. Treated here and d/c 3 days ago without symptoms. Reports that these symptoms started 1 day ago. Denies chest pain, headache, dysuria/hematuria, hematochezia. PMH: epilepsy, dengue fever SurgHx: bilateral salpingo-oopherectomy, hysterectomy, appendectomy Meds: keppra, topamax Past History - Past Medical History Allergies/Adverse Reactions: Allergies Allergy/AdvReac Type Severity Reaction Status Date / Time Iodinated Contrast Media Allergy Hives Verified 12/16/18 21:30 [Iodinated Contrast Media - IV Dye] Home Medications: Ambulatory Orders Levetiracetam [Keppra] 1,000 mg PO BID 03/17/15 Lacosamide [Vimpat -] 50 mg PO BID #120 tab MDD 2 tabs 12/11/18 Meclizine HCl [Antivert -] 25 mg PO Q6HPO #60 tablet 12/11/18 Topiramate [Topamax -] 25 mg PO BID #120 tablet 12/11/18 Walker [Ultra-Light Rollator] 1 each MC DAILY #1 each 12/11/18 levETIRAcetam [Keppra -] 1,000 mg PO BID #0 tablet 12/11/18 levETIRAcetam [Keppra -] 1,000 mg PO BID #120 tablet 12/11/18 Anemia: No Asthma: No Cancer: No Cardiac Disorders: No CVA: No COPD: No CHF: No DVT: No Dementia: No Diabetes: No GI Disorders: No Disorders: No HTN: No Hypercholesterolemia: No Liver Disease: No Seizures: Yes (EPILEPSY) Thyroid Disease: No - Surgical History Abdominal Surgery: No Appendectomy: Yes Cardiac Surgery: No Cholecystectomy: No Lung Surgery: No Neurologic Surgery: No Orthopedic Surgery: No - Immunization History Immunization Up to Date: Yes - Suicide/Smoking/Psychosocial Hx Smoking Status: No Smoking History: Never smoked Have you smoked in the past 12 months: No Number of Cigarettes Smoked Daily: 0 Information on smoking cessation initiated: No Hx Alcohol Use: No Drug/Substance Use Hx: No Substance Use Type: None Hx Substance Use Treatment: No Review of Systems - Review of Systems Comments:: GENERAL/CONSTITUTIONAL: Reports fever, no chills. No weakness._ HEAD, EYES, EARS, NOSE AND THROAT: No change in vision. No change in hearing. No sore throat._ CARDIOVASCULAR: No chest pain or shortness of breath_ RESPIRATORY: Denies cough, hemoptysis_ GASTROINTESTINAL: Reports nausea, no vomiting. No hematochezia. GENITOURINARY: No dysuria, frequency, or change in urination. MUSCULOSKELETAL: No joint or muscle swelling or pain. No neck pain. Reports left flank pain. SKIN: No rash. NEUROLOGIC: Reports mild headache and dizziness. No loss of consciousness, or change in strength/sensation. ENDOCRINE: No increased thirst. No abnormal weight change. HEMATOLOGIC/LYMPHATIC: No anemia, easy bleeding, or history of blood clots. ALLERGIC/IMMUNOLOGIC: No hives or skin allergy. *Physical Exam - Vital Signs Last Vital Signs Temp Pulse Resp BP Pulse Ox 98.8 F 101 H 17 138/89 100 12/16/18 21:28 12/16/18 21:28 12/16/18 21:28 12/16/18 21:28 12/16/18 21:28 - Physical Exam Comments: GENERAL: Awake, alert, and oriented to person/place/time, in no acute distress_ HEAD: No signs of trauma, normocephalic, atraumatic _ EYES: PERRLA, EOMI, sclera anicteric, conjunctiva clear_ ENT: Hearing grossly normal, nares patent, oropharynx clear without exudates. No uvular deviation. Moist mucosa_ NECK: Normal ROM, supple, no lymphadenopathy, JVD, or masses_ LUNGS: No distress, speaks in full sentences, clear to auscultation bilaterally _ HEART: Regular rate and rhythm, normal S1 and S2, no murmurs appreciated, peripheral pulses normal and equal bilaterally._ ABDOMEN: Soft, diffuse tenderness worse in the RUQ/LUQ, normoactive bowel sounds. No guarding, no rebound. No masses_ BACK: Left sided CVA tenderness, no right sided tenderness EXTREMITIES: Normal inspection, Normal range of motion, no edema. No clubbing or cyanosis_ NEUROLOGICAL: Cranial nerves II through XII grossly intact. Normal speech, normal gait, no focal sensorimotor deficits _ SKIN: Warm, Dry, normal turgor, no rashes or lesions noted_ ED Treatment Course - LABORATORY CBC & Chemistry Diagram: 12/16/18 21:51 12/16/18 21:51 - ADDITIONAL ORDERS Additional order review: Laboratory Results 12/16/18 12/16/18 12/16/18 21:51 21:51 21:30 Sodium 139 Potassium 4.1 Chloride 108 H Carbon Dioxide 26 Anion Gap 5 L BUN 12.0 Creatinine 0.7 Est GFR (CKD-EPI)AfAm 120.43 Est GFR (CKD-EPI)NonAf 103.90 Random Glucose 109 H Calcium 9.2 Total Bilirubin 0.2 AST 92 H ALT 180 H Alkaline Phosphatase 83 Total Protein 7.7 Albumin 3.8 Lipase Cancelled 131 Urine Color Yellow Urine Appearance Clear Urine pH 6.5 Ur Specific [place] 1.026 Urine Protein Negative Urine Glucose (UA) Negative Urine Ketones Negative Urine Blood Negative Urine Nitrite Negative Urine Bilirubin Negative Urine Urobilinogen 0.2 Ur Leukocyte Esterase Negative Urine HCG, Qual 12/16/18 21:30 Sodium Potassium Chloride Carbon Dioxide Anion Gap BUN Creatinine Est GFR (CKD-EPI)AfAm Est GFR (CKD-EPI)NonAf Random Glucose Calcium Total Bilirubin AST ALT Alkaline Phosphatase Total Protein Albumin Lipase Urine Color Urine Appearance Urine pH Ur Specific [place] Urine Protein Urine Glucose (UA) Urine Ketones Urine Blood Urine Nitrite Urine Bilirubin Urine Urobilinogen Ur Leukocyte Esterase Urine HCG, Qual Negative 12/16/18 21:51 RBC 4.00 MCV 91.7 MCHC 34.3 RDW 12.4 MPV 7.6 D Neutrophils % 51.0 D Lymphocytes % 34.8 D Monocytes % 12.2 H Eosinophils % 1.5 Basophils % 0.5 - RADIOLOGY Radiology Studies Ordered: Category Date Time Status ABDOMEN & PELVIS CT WITH CONTR [CT] Stat CT Scan 12/16/18 23:25 Ordered Medical Decision Making - Medical Decision Making 48F with hx of epilepsy (keppra, topamax) and dengue fever. Presenting with 1 day of low grade fever, diffuse abdominal pain, left sided flank pain. AST/ALT elevated, otherwise labs wnl. UA negative. -CT abd/pelv -tylenol, antivert, fluids 12/17/18 00:29 Pt reports that she is feeling better after IV tylenol. Does not want a CT of the abd anymore. She does not have an elevated white count and her UA is negative. Plan to d/c home and f/u PCP. Strict return precautions given. *DC/Admit/Observation/Transfer Diagnosis at time of Disposition: Lower abdominal pain - Discharge Dispostion Disposition: HOME Condition at time of disposition: Stable - Referrals Referrals: Burt Mas MD [Primary Care Provider] - - Patient Instructions Printed Discharge Instructions: DI for Abdominal Pain-Adult Additional Instructions: Please make an appointment with your primary care doctor to follow up from today 's visit. Please take Tylenol as needed for pain (follow instructions on the package). If you experience any new, worsening, or concerning symptoms, including severe nausea/vomiting, blood in the vomiting or stool, headache, chest pain, weakness , shortness of breath, or any other concerns, please return to the emergency department. - Post Discharge Activity
[2018-12-16] MEDS ORDERED: KETOROLAC TROMETHAMINE 30 MG/1 ML VIAL IVPUSH ONE (23:40)
[2018-12-16] MEDS ORDERED: MECLIZINE HCL 25 MG TABLET (FP) ONE (23:43)
[2018-12-16] MEDS ORDERED: KETOROLAC TROMETHAMINE 30 MG/1 ML VIAL ONE (23:44)
[2018-12-16] MEDS ORDERED: ACETAMINOPHEN INJECTION 100 ML IVPB ONE (23:44)
--- NOTE | 2018-12-24 06:56 | PDOC ---
Documentation entered by Ev Reeves SCRIBE, acting as scribe for Yarelis Hogue MD. Yarelis Hogue MD: This documentation has been prepared by the sigifredoibeLeandro Lincy, SCRIBE, under my direction and personally reviewed by me in its entirety. I confirm that the documentation accurately reflects all work, treatment, procedures, and medical decision making performed by me. Attending Attestation - Resident Resident Name: Chirag Chavez - ED Attending Attestation I have performed the following: I have examined & evaluated the patient, The case was reviewed & discussed with the resident, I agree w/resident's findings & plan - HPI HPI: 12/16/18 23:40 The patient is a 48-year-old female with a past medical history significant for epilepsy, Hep A and Dengue fever (admitted to [facility], d/c 12/11) presents to the emergency department with left-sided abdominal pain, associated with subjective fever and nausea. The patient reports she feels like her organs are inflamed, which is aggravated with coughing. Denies chest pain, cough, SOB, dysuria, hematuria, hematochezia, weakness, or leg swelling. - Physicial Exam PE: 12/16/18 23:45 GENERAL: Awake, alert, and fully oriented, in no acute distress LUNGS: Breath sounds equal, clear to auscultation bilaterally. No wheezes, and no crackles HEART: Regular rate and rhythm, normal S1 and S2, no murmurs, rubs or gallops ABDOMEN: +soft, minimally diffuse abdominal pain, minimal left flank pain very minimal rebound with lower quadrant pain bilaterally. Normoactive bowel sounds, no guarding. EXTREMITIES: Normal range of motion, no edema. NEUROLOGICAL: Cranial nerves II through XII grossly intact. Normal speech, normal gait. - Medical Decision Making 12/24/18 06:55 Pt is feeling better after treatment in the ER and she wants to go home and follow with her PMD. She understands that she must return for worsening condition.
== END 2018-12-17 00:38 | disposition home or self-care (01) ==
LOC: JER 21:08
PROC: 3E0333Z Introduction of Anti-inflammatory into Peripheral Vein, Percutaneous Approach (ICD-10-PCS; principal; 2018-12-16)
DX: R10.32 Left lower quadrant pain (principal); G40.909 Epilepsy, unspecified, not intractable, without status epilepticus
CPT/HCPCS: 36415; 80053; 81003; 83690; 84703; 85025; 96374; 99282-25

== ENCOUNTER 2019-01-26 09:59 | Emergency (ER) | payer OTHER ==
[2019-01-26 10:12] VITALS: BP 146/80; PULSE 83; TEMP 98.5; BMI 27.4
[2019-01-26] MEDS ORDERED: IBUPROFEN 400 MG TABLET (FP) PO ONE ×2 (10:53→11:02)
--- NOTE | 2019-01-26 11:09 | PDOC ---
History of Present Illness - General Chief Complaint: Pain Stated Complaint: PAIN Time Seen by Provider: 01/26/19 10:32 History Source: Patient Exam Limitations: Clinical Condition - History of Present Illness Initial Comments: 01/26/19 11:09 Patient with no significant past medical history presented with complaint of 2 weeks history of bilateral breast pain which has not been improving. Patient reports family history of breast cancer which she was seen by A[facility]ILI[facility] EQUIPMENT OPERATOR 6 years ago and breast biopsy done was normal. Patient has not had mammogram done in over 6 years. Patient did not take anything for pain. Denies nipple discharge, discoloration of the skin of breast. Patient reported seen PCP a week ago but did not mention breast pain as she thought it would go away by self. Denies any other symptoms Is this a multiple visit Asthma Patient?: No Timing/Duration: other (2 weeks) Past History - Past Medical History Allergies/Adverse Reactions: Allergies Allergy/AdvReac Type Severity Reaction Status Date / Time Iodinated Contrast Media Allergy Hives Verified 01/26/19 10:05 [Iodinated Contrast Media - IV Dye] Home Medications: Ambulatory Orders levETIRAcetam [Keppra -] 1,000 mg PO BID #0 tablet 12/11/18 Ibuprofen 600 mg PO Q8H PRN #20 tablet 01/26/19 Anemia: No Asthma: No Cancer: No Cardiac Disorders: No CVA: No COPD: No CHF: No DVT: No Dementia: No Diabetes: No Dialysis: No GI Disorders: No Disorders: No HTN: No Hypercholesterolemia: No Kidney Stones: No Liver Disease: No Psychiatric Problems: No Seizures: Yes (EPILEPSY) Thyroid Disease: No Lung CA: No - Surgical History Abdominal Surgery: No Appendectomy: Yes Cardiac Surgery: No Cholecystectomy: No Lung Surgery: No Neurologic Surgery: No Orthopedic Surgery: No - Immunization History Immunization Up to Date: Yes - Psycho Social/Smoking Cessation Hx Smoking Status: No Smoking History: Never smoked Have you smoked in the past 12 months: No Number of Cigarettes Smoked Daily: 0 Information on smoking cessation initiated: No Hx Alcohol Use: No Drug/Substance Use Hx: No Substance Use Type: None Hx Substance Use Treatment: No Review of Systems - Review of Systems Able to Perform ROS?: Yes Is the patient limited Moroccan proficient: No Constitutional: No: Chills, Fever, Malaise HEENTM: No: Symptoms Reported Respiratory: No: Symptoms reported Cardiac (ROS): No: Symptoms Reported : No: Symptoms Reported Musculoskeletal: Yes: Symptoms Reported, See HPI, Muscle Pain (b/l breast pain) Integumentary: No: Symptoms Reported Neurological: No: Symptoms reported All Other Systems: Reviewed and Negative *Physical Exam - Vital Signs Last Vital Signs Temp Pulse Resp BP Pulse Ox 98.5 F 83 16 146/80 98 01/26/19 10:05 01/26/19 10:05 01/26/19 10:05 01/26/19 10:05 01/26/19 10:05 - Physical Exam Comments: 01/26/19 11:13 GENERAL: Well developed, well nourished. Awake and alert. No acute distress. NECK: Supple. Full ROM. CARDIOVASCULAR: Regular rate and rhythm. No murmurs, rubs, or gallops. Distal pulses are 2+ and symmetric. PULMONARY: No evidence of respiratory distress. Lungs clear to auscultation bilaterally. No wheezing, rales or rhonchi. MUSCULOSKELETAL Normal range of motion at all joints. Moderate tenderness of bilateral breast with no palpable mass. No nipple inversion or discharge. SKIN: Warm and dry. Normal capillary refill. No rashes. No erythema or skin discoloration of bilateral breast. No nipple discharge or inverted nipples. NEUROLOGICAL: Alert, awake, appropriate. Gait is normal without ataxia. PSYCHIATRIC: Cooperative. Good eye contact. Appropriate mood General Appearance: Yes: Nourished, Appropriately Dressed. No: Apparent Distress Medical Decision Making - Medical Decision Making 01/26/19 11:11 Patient with no significant past medical history presented with complaint of 2 weeks history of bilateral breast pain which has not been improving. Patient reports family history of breast cancer which she was seen by A[facility]ILI[facility] EQUIPMENT OPERATOR 6 years ago and breast biopsy done was normal. Patient has not had mammogram done in over 6 years. Patient did not take anything for pain. Denies nipple discharge, discoloration of the skin of breast. Patient reported seen PCP a week ago but did not mention breast pain as she thought it would go away by self. Denies any other symptoms. Clinical exam significant for moderate tenderness to bilateral breast with no palpable mass. No skin discoloration or nipple discharge. No open wound to skin. Patient afebrile. Symptoms likely cavitary ovulatory pain versus mastodynia from breast cyst. Ibuprofen 800 mg given for pain. Patient advised to follow-up with her A[facility]ILI[employer] EQUIPMENT OPERATOR for mammogram and voice she will make appointment today to follow-up with A[facility]ILI[facility] EQUIPMENT OPERATOR. Patient stable for discharge Discharge - Discharge Information Problems reviewed: Yes Clinical Impression/Diagnosis: Mastalgia Condition: Stable Disposition: HOME - Admission No - Additional Discharge Information Prescriptions: Ibuprofen 600 mg PO Q8H PRN #20 tablet PRN Reason: pain - Follow up/Referral Referrals: Burt Mas MD [Primary Care Provider] - - Patient Discharge Instructions Patient Printed Discharge Instructions: Catherine, DI for Breast Pain ( Mastalgia) Additional Instructions: Take prescribed medications as needed for pain. Follow-up with your AUXILIARY EQUIPMENT OPERATOR as discussed for mammogram. No indication of breast cancer on breast exam - Post Discharge Activity
== END 2019-01-26 11:20 | disposition home or self-care (01) ==
LOC: JER 09:59
DX: N64.4 Mastodynia (principal); Z91.041 Radiographic dye allergy status; G40.909 Epilepsy, unspecified, not intractable, without status epilepticus
CPT/HCPCS: 99281-25

== ENCOUNTER 2019-03-10 21:05 | Emergency (ER) | payer OTHER ==
--- NOTE | 2019-03-10 21:27 | PDOC ---
History of Present Illness - General Chief Complaint: Seizure Stated Complaint: SEIZURE Time Seen by Provider: 03/10/19 21:09 - History of Present Illness Initial Comments: Ms. Madrigal is a 48 y/o female with PMH significant for epilepsy presenting today s/p seizure. Reports that she usually takes Keppra 1000 mg BID but forgot her evening dose. She was at [employer] today when there was a flashing light and she sat down because she felt she was about to have a seizure. Positive LOC. Witnessed seizure, with tonic clonic movements. No head trauma or fall. Denies tongue biting or urinary incontinence. Last seizure in November. She had post- ictal state per EMS. Neuro: Dr. Delgado TravelHx: hx of dengue fever Past History - Past Medical History Allergies/Adverse Reactions: Allergies Allergy/AdvReac Type Severity Reaction Status Date / Time Iodinated Contrast Media Allergy Intermediate Hives Verified 03/10/19 21:33 [Iodinated Contrast Media - IV Dye] Home Medications: Ambulatory Orders levETIRAcetam [Keppra -] 1,000 mg PO BID #0 tablet 12/11/18 Anemia: No Asthma: No Cancer: No Cardiac Disorders: No CVA: No COPD: No CHF: No DVT: No Dementia: No Diabetes: No Dialysis: No GI Disorders: No Disorders: No HTN: No Hypercholesterolemia: No Kidney Stones: No Liver Disease: No Psychiatric Problems: No Seizures: Yes (EPILEPSY) Thyroid Disease: No Lung CA: No - Surgical History Abdominal Surgery: No Appendectomy: Yes Cardiac Surgery: No Cholecystectomy: No Lung Surgery: No Neurologic Surgery: No Orthopedic Surgery: No - Immunization History Immunization Up to Date: Yes - Psycho Social/Smoking Cessation Hx Smoking Status: No Smoking History: Never smoked Have you smoked in the past 12 months: No Number of Cigarettes Smoked Daily: 0 Hx Alcohol Use: No Drug/Substance Use Hx: No Substance Use Type: None Hx Substance Use Treatment: No Neuro Specific PMHX - Complaint Specific PMHX Glaucoma: No Review of Systems - Review of Systems Comments:: GENERAL/CONSTITUTIONAL: No fever or chills. No weakness._ HEAD, EYES, EARS, NOSE AND THROAT: No change in vision. No change in hearing. No sore throat._ CARDIOVASCULAR: No chest pain or shortness of breath_ RESPIRATORY: Denies cough, hemoptysis_ GASTROINTESTINAL: No nausea, vomiting, diarrhea or constipation._ GENITOURINARY: No dysuria, frequency, or change in urination._ MUSCULOSKELETAL: Reports mild, diffuse muscle aches. No neck or back pain._ SKIN: No rash_ NEUROLOGIC: Reports seizure. Reports LOC. No headache, vertigo, or change in strength/sensation._ ENDOCRINE: No increased thirst. No abnormal weight change_ HEMATOLOGIC/LYMPHATIC: No anemia, easy bleeding, or history of blood clots._ ALLERGIC/IMMUNOLOGIC: No hives or skin allergy._ *Physical Exam - Physical Exam Comments: GENERAL: Awake, alert, and oriented to person/place/time, in no acute distress_ HEAD: No signs of trauma, normocephalic, atraumatic _ EYES: PERRLA, EOMI, sclera anicteric, conjunctiva clear_ ENT: Hearing grossly normal, nares patent, oropharynx clear without exudates. No uvular deviation. Moist mucosa_ NECK: Normal ROM, supple, no lymphadenopathy, JVD, or masses. No c-spine TTP. LUNGS: No distress, speaks in full sentences, clear to auscultation bilaterally _ HEART: Regular rate and rhythm, normal S1 and S2, no murmurs appreciated, peripheral pulses normal and equal bilaterally._ ABDOMEN: Soft, nontender, normoactive bowel sounds. No guarding, no rebound. No masses_ EXTREMITIES: Normal inspection, Normal range of motion, no edema. No clubbing or cyanosis. NEUROLOGICAL: Cranial nerves II through XII grossly intact. Normal speech, no focal sensorimotor deficits. 4/5 strength in bilateral lower extremities post- ictal in nature, no focal deficits. SKIN: Warm, Dry, normal turgor, no rashes or lesions noted_ Medical Decision Making - Medical Decision Making 03/10/19 21:45 48F hx of epilepsy missed evening dose of keppra, presenting with tonic clonic seizure. -keppra 1000 mg -IV fluids 03/10/19 23:35 Pt reassessed. Reports feeling better after fluids. Received evening dose of Keppra. Plan to d/c home, f/u PCP and neurologist within 72 hours. Patient and family verbalized agreement and understanding of plan. All questions answered. Discharge - Discharge Information Problems reviewed: Yes Clinical Impression/Diagnosis: Seizure Condition: Stable Disposition: HOME - Admission No - Follow up/Referral Referrals: Burt Mas MD [Primary Care Provider] - Tony Delgado DO [Staff Physician] - - Patient Discharge Instructions Patient Printed Discharge Instructions: DI for Seizure Disorder -- Adult Additional Instructions: Please return to the emergency department with any new or worsening symptoms or concerns. Please follow up with your neurologist and primary care physician within 72 hours. Please take Keppra 1000 mg twice a day as prescribed. - Post Discharge Activity
[2019-03-10 21:31] VITALS: BP 123/81; PULSE 85; TEMP 98.1; BMI 28.3
[2019-03-10] MEDS ORDERED: levETIRAcetam 500 MG/5 ML INJECTION VIAL IVPB ONE ×2 (21:38→22:00)
[2019-03-10] MEDS ORDERED: SODIUM CHLORIDE 0.9% 500 ML INFUS.BAG IV ONE (21:45)
--- NOTE | 2019-03-10 21:49 | PDOC ---
Attending Attestation - Resident Resident Name: Chirag Chavez - ED Attending Attestation I have performed the following: I have examined & evaluated the patient, The case was reviewed & discussed with the resident, I agree w/resident's findings & plan - HPI HPI: 03/10/19 23:11 Pt reports skipping her keppra; she had a seizure in [employer] today. No other complaints. - Physicial Exam PE: 03/10/19 23:12 Agree with resident exam - Medical Decision Making 03/10/19 23:12 Pt will be hydrated and loaded with keppra and she will be sent home. Follow with neurologist as an outpatient. No need for head CT imaging at this time.
== END 2019-03-10 23:47 | disposition home or self-care (01) ==
LOC: JER 21:05
PROC: 3E033GC Introduction of Other Therapeutic Substance into Peripheral Vein, Percutaneous Approach (ICD-10-PCS; principal; 2019-03-10)
DX: G40.909 Epilepsy, unspecified, not intractable, without status epilepticus (principal); Z91.041 Radiographic dye allergy status
CPT/HCPCS: 96374; 99282-25

== ENCOUNTER 2019-05-21 18:20 | Emergency (ER) | payer OTHER ==
[2019-05-21 18:28] VITALS: BP 125/85; PULSE 89; TEMP 98.4; BMI 28.3
--- NOTE | 2019-05-21 18:39 | PDOC ---
History of Present Illness - General Chief Complaint: Urinary Problem Stated Complaint: BACK PAIN Time Seen by Provider: 05/21/19 18:33 History Source: Patient - History of Present Illness Timing/Duration: reports: other (1 week) Abdominal Pain Onset Location: reports: flank Past History - Past Medical History Allergies/Adverse Reactions: Allergies Allergy/AdvReac Type Severity Reaction Status Date / Time Iodinated Contrast Media Allergy Intermediate Hives Verified 05/21/19 18:28 [Iodinated Contrast Media - IV Dye] Home Medications: Ambulatory Orders levETIRAcetam [Keppra -] 1,000 mg PO BID #0 tablet 12/11/18 levoFLOXacin [Levaquin] 750 mg PO DAILY #7 tab 05/21/19 Anemia: No Asthma: No Cancer: No Cardiac Disorders: No CVA: No COPD: No CHF: No DVT: No Dementia: No Diabetes: No Dialysis: No GI Disorders: No Disorders: No HTN: No Hypercholesterolemia: No Kidney Stones: No Liver Disease: No Psychiatric Problems: No Seizures: Yes (EPILEPSY) Thyroid Disease: No Lung CA: No - Surgical History Abdominal Surgery: No Appendectomy: Yes Cardiac Surgery: No Cholecystectomy: No Lung Surgery: No Neurologic Surgery: No Orthopedic Surgery: No - Immunization History Immunization Up to Date: Yes - Psycho Social/Smoking Cessation Hx Smoking Status: No Smoking History: Never smoked Have you smoked in the past 12 months: No Number of Cigarettes Smoked Daily: 0 Hx Alcohol Use: No Drug/Substance Use Hx: No Substance Use Type: None Hx Substance Use Treatment: No Review of Systems - Review of Systems Constitutional: Yes: Chills. No: Fever ABD/GI: No: Nausea, Vomiting, Abdominal cramping : Yes: Dysuria, Flank Pain. No: Discharge, Hematuria *Physical Exam - Vital Signs Last Vital Signs Temp Pulse Resp BP Pulse Ox 98.4 F 89 18 125/85 97 05/21/19 18:25 05/21/19 18:25 05/21/19 18:25 05/21/19 18:25 05/21/19 18:25 - Physical Exam General Appearance: Yes: Appropriately Dressed, Mild Distress HEENT: positive: Normal Voice Neck: positive: Supple Respiratory/Chest: negative: Respiratory Distress Gastrointestinal/Abdominal: positive: Soft. negative: Tender Musculoskeletal: positive: CVA Tenderness (R), CVA Tenderness (L) Integumentary: positive: Dry, Warm Neurologic: positive: Fully Oriented, Alert, Normal Mood/Affect Medical Decision Making - Medical Decision Making 05/21/19 18:38 49-year-old female history of UT, pyelo, here w/ dysuria with chills and lower back pain x1 week, similar to prior UTI. No nausea, vomiting, fever or chills. No history of renal stone see exam UTI, ? early pyelo Stable but appears uncomfortable w/ sig b/l CVAT -ua/ucx -will consider giving 1st dose of abx via IV in ER (prior ucx reviewed) 05/21/19 19:56 UA w/ 2+ LE, >100 wbc and >200 kenzie. Pt s/p dose of ceftriaxone here. States pain has since improved with dose of Toradol. No fever or vomiting in ER. Will dc w/ levaquin. To return to ER as needed Discharge - Discharge Information Problems reviewed: Yes Clinical Impression/Diagnosis: Flank pain UTI (urinary tract infection) Qualifiers: Urinary tract infection type: site unspecified Hematuria presence: without hematuria Qualified Code(s): N39.0 - Urinary tract infection, site not specified Condition: Good Disposition: HOME - Additional Discharge Information Prescriptions: levoFLOXacin [Levaquin] 750 mg PO DAILY #7 tab - Follow up/Referral Referrals: Axel Wood [Primary Care Provider] - - Patient Discharge Instructions Patient Printed Discharge Instructions: Urinary Tract Infection Additional Instructions: You were treated for UTI. Take antibiotics as directed. You can take Motrin or Tylenol for pain as needed Return to ER for any worsening of symptoms as discussed - Post Discharge Activity Work/Back to School Note: Back to Work
[2019-05-21] MEDS ORDERED: CEFTRIAXONE 1 GM in DEXTROSE 5%-WATER - 50 ML IVPB ONE (18:42)
[2019-05-21] MEDS ORDERED: KETOROLAC TROMETHAMINE 30 MG/1 ML VIAL IVPUSH ONE (18:44)
[2019-05-21] MEDS ORDERED: CEFTRIAXONE 1 GM/50 ML BAG ONE (18:53)
[2019-05-21] MEDS ORDERED: KETOROLAC TROMETHAMINE 30 MG/1 ML VIAL ONE (18:53)
[2019-05-21 19:42] LABS: EPI CELLS 8.7 /HPF (0-5/HPF); HYALINE CASTS 2 /lpf (0-8); PH,URINE 6.5 (5.0-8.0); URINE APPEARANCE CLOUDY; URINE BACTERIA 246.7 /hpf (NEGATIVE); URINE BILIRUBIN NEGATIVE (NEGATIVE); URINE COLOR YELLOW; URINE GLUCOSE (UA) NEGATIVE (NEGATIVE); URINE KETONE NEGATIVE (NEGATIVE); URINE LEUK ESTERASE 2+ (NEGATIVE); URINE NITRITE NEGATIVE (NEGATIVE); URINE PROTEIN NEGATIVE (NEGATIVE); URINE RBC 2 /hpf (0-4); URINE UROBILINOGEN 0.2 mg/dL (0.2-1.0); URINE WBC 103 /hpf (0-5)
== END 2019-05-21 20:02 | disposition home or self-care (01) ==
LOC: JERFT 18:20
DX: N39.0 Urinary tract infection, site not specified (principal); G40.909 Epilepsy, unspecified, not intractable, without status epilepticus; Z91.041 Radiographic dye allergy status
CPT/HCPCS: 81003; 84703; 87086; 87186; 99283-25

== ENCOUNTER 2019-11-22 20:08 | Emergency (ER) | payer OTHER ==
[2019-11-22 20:44] VITALS: BP 134/68; PULSE 84; TEMP 97.8; BMI 29.3
--- NOTE | 2019-11-22 21:11 | PDOC ---
History of Present Illness - General Chief Complaint: Pain Stated Complaint: NECK PAIN Time Seen by Provider: 11/22/19 20:51 - History of Present Illness Initial Comments: 11/22/19 21:07 49-year-old female denies comorbidities presents for evaluation of 3 days of left shoulder and neck pain after working out. No radicular symptoms. No systemic symptoms. No comorbidities. Past History - Medical History Allergies/Adverse Reactions: Allergies Allergy/AdvReac Type Severity Reaction Status Date / Time Iodinated Contrast Media Allergy Intermediate Hives Verified 05/21/19 18:28 [Iodinated Contrast Media - IV Dye] Home Medications: Ambulatory Orders levETIRAcetam [Keppra -] 1,000 mg PO BID #0 tablet 12/11/18 levoFLOXacin [Levaquin] 750 mg PO DAILY #7 tab 05/21/19 Cyclobenzaprine HCl [Flexeril 10 mg] 10 mg PO HS PRN #10 tablet 11/22/19 Ibuprofen [Motrin -] 600 mg PO TID #30 tablet 11/22/19 Anemia: No Asthma: No Cancer: No Cardiac Disorders: No CVA: No COPD: No CHF: No DVT: No Dementia: No Diabetes: No Dialysis: No GI Disorders: No Disorders: No HTN: No Hypercholesterolemia: No Kidney Stones: No Liver Disease: No Psychiatric Problems: No Seizures: Yes (EPILEPSY) Thyroid Disease: No Lung CA: No - Surgical History Abdominal Surgery: No Appendectomy: Yes Cardiac Surgery: No Cholecystectomy: No Lung Surgery: No Neurologic Surgery: No Orthopedic Surgery: No - Reproductive History Is Patient Now?: No - Immunization History Immunization Up to Date: Yes - Psycho-Social/Smoking History Smoking Status: No Smoking History: Never smoked Have you smoked in the past 12 months: No Number of Cigarettes Smoked Daily: 0 - Substance Abuse Hx (Audit-C & DAST Scrn) How often the patient has a drink containing alcohol: Never Score: In Men: 4 or > Positive; In Women: 3 or > Positive: 0 Screen Result (Pos requires Nsg. Audit-10AR): Negative In the last yr the pt used illegal drug/Rx for NonMed reason: No Score: Yes response is considered Positive: 0 Screen Result (Positive result requires Nsg. DAST-10): Negative Review of Systems - Review of Systems Musculoskeletal: Yes: Joint Pain, Neck Pain *Physical Exam - Vital Signs Last Vital Signs Temp Pulse Resp BP Pulse Ox 97.8 F 84 19 134/68 98 11/22/19 20:39 11/22/19 20:39 11/22/19 20:39 11/22/19 20:39 11/22/19 20:39 - Physical Exam 11/22/19 21:08 Cervical spine skin color and temperature normal range of motion is slightly limited. There is no midline tenderness. Mild bilateral paracervical musculature spasm and tenderness. 5 out of 5 strength bilateral upper extremities without gross sensorimotor deficits neurovascular intact. Left shoulder skin color and temperature normal range of motion is full supraspinatus isolation is 4 out of 5. Positive impingement maneuvers no gross sensorimotor deficits neurovascular intact Medical Decision Making - Medical Decision Making 11/22/19 21:08 Patient is taking large doses of ibuprofen at home. We will hold off on a shot of Toradol. I instructed her to discontinue her home ibuprofen given a prescription for Motrin at home which she can start tomorrow we will give 2 Percocet in the emergency room Flexeril and ibuprofen at home Orthopedic surgery follow-up advised. I have reviewed the pathophysiology with the patient. They are in agreement with the treatment plan all questions were answered to their satisfaction. Understanding for follow-up without fail was also conveyed to the patient. Again they are in agreement. Discharge - Discharge Information Problems reviewed: Yes Clinical Impression/Diagnosis: Cervical strain, Impingement syndrome, shoulder, left Condition: Stable Disposition: HOME - Admission No - Additional Discharge Information Prescriptions: Cyclobenzaprine HCl [Flexeril 10 mg] 10 mg PO HS PRN #10 tablet PRN Reason: Muscle Spasms Ibuprofen [Motrin -] 600 mg PO TID #30 tablet - Follow up/Referral Referrals: Burt Mas MD [Primary Care Provider] - Patel Kay DO [Staff Physician] - - Patient Discharge Instructions Additional Instructions: Please going forward only take the anti-inflammatories I have prescribed for you. Do not take any [id number] anti-inflammatories. Tomorrow you may take the anti-inflammatory which I have prescribed. Do not take anymore anti- inflammatories today. You may also start Tylenol tomorrow. You were given a dose of narcotic as well as Tylenol in the emergency room. Do not take anything else tonight except for one muscle relaxer as prescribed before bedtime. Return to the emergency room for worsening symptoms and without fail follow-up with orthopedic surgery in 1 to 2 days for further evaluation and treatment options. - Post Discharge Activity
== END 2019-11-22 21:24 | disposition home or self-care (01) ==
LOC: JERFT 20:08 → JER 20:08 → JERFT 21:24
DX: S16.1XXA Strain of muscle, fascia and tendon at neck level, initial encounter (principal); M75.42 Impingement syndrome of left shoulder; Y99.9 Unspecified external cause status
CPT/HCPCS: 99283-25

== ENCOUNTER 2020-05-19 12:53 | Emergency (ER) | payer OTHER ==
[2020-05-19 12:58] VITALS: BMI 28.3
[2020-05-19] MEDS ORDERED: SODIUM CHLORIDE 1,000 ML IV STA (14:52)
[2020-05-19] MEDS ORDERED: METOCLOPRAMIDE HCL INJECTION 10 MG/2 ML VIAL IVPB ONE (14:52)
[2020-05-19] MEDS ORDERED: ACETAMINOPHEN 1000 MG/100 ML VIAL (NON FORMULARY) IVPB ONE (14:52)
[2020-05-19] MEDS ORDERED: METOCLOPRAMIDE HCL INJECTION 10 MG/2 ML VIAL ONE (15:14)
[2020-05-19] MEDS ORDERED: KETOROLAC TROMETHAMINE 60 MG/2 ML VIAL IM ONE (15:21)
[2020-05-19] MEDS ORDERED: KETOROLAC TROMETHAMINE 60 MG/2 ML VIAL ONE (15:24)
[2020-05-19 15:58] VITALS: BP 118/76; PULSE 107; TEMP 97.8
== END 2020-05-19 15:58 | disposition home or self-care (01) ==
LOC: JER 12:53
PROC: 3E0333Z Introduction of Anti-inflammatory into Peripheral Vein, Percutaneous Approach (ICD-10-PCS; principal; 2020-05-19)
PROC: 3E0233Z Introduction of Anti-inflammatory into Muscle, Percutaneous Approach (ICD-10-PCS; 2020-05-19)
PROC: 3E033GC Introduction of Other Therapeutic Substance into Peripheral Vein, Percutaneous Approach (ICD-10-PCS; 2020-05-19)
PROC: 3E0337Z Introduction of Electrolytic and Water Balance Substance into Peripheral Vein, Percutaneous Approach (ICD-10-PCS; 2020-05-19)
DX: U07.1 COVID-19 (principal)
CPT/HCPCS: 71046-TC-FY; 99284-25; C9803; U0003

== ENCOUNTER 2020-05-21 04:20 | Emergency (ER) | payer OTHER ==
[2020-05-21 04:39] VITALS: TEMP 98.2; BMI 25.7
[2020-05-21] MEDS ORDERED: DEXAMETHASONE 4 MG TABLET (FP) PO ONE ×2 (04:53→04:56)
[2020-05-21] MEDS ORDERED: ACETAMINOPHEN 325 MG TABLET (FP) PO ONE (04:54)
[2020-05-21 05:14] VITALS: BP 115/86; PULSE 89
== END 2020-05-21 05:15 | disposition home or self-care (01) ==
LOC: JER 04:20
DX: U07.1 COVID-19 (principal)
CPT/HCPCS: 99283-25

== ENCOUNTER 2020-11-01 21:23 | Emergency (ER) | payer OTHER ==
[2020-11-01 21:55] VITALS: BMI 28.3
[2020-11-01] MEDS ORDERED: levETIRAcetam 500 MG TABLET (FP) PO ONE ×4 (22:41→22:58)
[2020-11-01 23:07] VITALS: BP 117/81; PULSE 80
== END 2020-11-01 23:09 | disposition home or self-care (01) ==
LOC: JER 21:23
DX: G40.89 Other seizures (principal)
CPT/HCPCS: 82962; 99284-25

== ENCOUNTER 2021-01-05 17:34 | Emergency (ER) | payer OTHER ==
[2021-01-05 17:43] VITALS: BMI 28.1
[2021-01-05] MEDS ORDERED: SODIUM CHLORIDE 0.9% 500 ML INFUS.BAG IV ONE (18:48)
[2021-01-05] MEDS ORDERED: ONDANSETRON 4 MG/2 ML VIAL IVPUSH ONE (18:48)
[2021-01-05] MEDS ORDERED: MECLIZINE HCL 25 MG TABLET (FP) PO ONE (18:54)
[2021-01-05] MEDS ORDERED: MECLIZINE HCL 25 MG TABLET (FP) ONE (19:06)
[2021-01-05] MEDS ORDERED: ONDANSETRON 4 MG/2 ML VIAL ONE (19:06)
[2021-01-05 19:15] LABS: BASO % 0.1 % (0-2.0); EOS % 1.8 % (0-4.5); HEMATOCRIT 37.6 % (32.4-45.2); HEMOGLOBIN 13.3 GM/dL (10.7-15.3); LYMPH % 42.9 % (8-40); MCH 32.8 pg (25.7-33.7); MCHC 35.4 g/dl (32.0-36.0); MEAN CELL VOLUME 92.6 fl (80-96); MEAN PLT VOLUME 7.3 fl (7.5-11.1); MONO % 5.3 % (3.8-10.2); NEUT % 49.9 % (42.8-82.8); PLATELET COUNT 225 10^3/uL (134-434); RBC 4.06 M/mm3 (3.60-5.2); RDW 12.3 % (11.6-15.6); WHITE BLOOD COUNT 6.6 K/mm3 (4.0-10.0)
[2021-01-05 19:31] LABS: CALCIUM 8.8 mg/dL (8.5-10.1)
[2021-01-05 19:32] LABS: ALBUMIN 3.9 g/dl (3.4-5.0)
[2021-01-05 19:37] LABS: BILIRUBIN,TOTAL 0.3 mg/dL (0.2-1); TOT PROT 7.9 g/dl (6.4-8.2)
[2021-01-05] MEDS ORDERED: ONDANSETRON *ODT* 4 MG TABLET SL ONE (22:20)
[2021-01-05] MEDS ORDERED: ONDANSETRON *ODT* 4 MG TABLET ONE (22:21)
[2021-01-05 22:36] VITALS: BP 110/68; PULSE 74; TEMP 98.6
== END 2021-01-05 22:37 | disposition home or self-care (01) ==
LOC: JER 17:34
PROC: 3E0333Z Introduction of Anti-inflammatory into Peripheral Vein, Percutaneous Approach (ICD-10-PCS; principal; 2021-01-05)
DX: R11.0 Nausea (principal); R42 Dizziness and giddiness
CPT/HCPCS: 36415; 74176-TC; 80053; 84703; 85025; 99284-25; Q0162

== ENCOUNTER 2021-09-22 05:44 | Emergency (ER) | payer OTHER ==
[2021-09-22 05:57] VITALS: TEMP 97.7; BMI 28.8
[2021-09-22] MEDS ORDERED: PROCHLORPERAZINE INJECTION 10 MG/2 ML VIAL IVPB ONE (07:31)
[2021-09-22] MEDS ORDERED: SODIUM CHLORIDE 0.9% 1000 ML INFUS.BAG IV ONE (07:31)
[2021-09-22] MEDS ORDERED: ACETAMINOPHEN 1000 MG/100 ML BAG IVPB ONE (07:31)
[2021-09-22] MEDS ORDERED: PROCHLORPERAZINE INJECTION 10 MG/2 ML VIAL ONE (07:36)
[2021-09-22] MEDS ORDERED: ACETAMINOPHEN INJECTION 100 ML IVPB ONE (07:37)
[2021-09-22] MEDS ORDERED: MECLIZINE HCL 25 MG TABLET (FP) PO ONE (08:09)
[2021-09-22] MEDS ORDERED: MECLIZINE HCL 25 MG TABLET (FP) ONE (10:09)
[2021-09-22 11:05] VITALS: BP 110/70; PULSE 78
== END 2021-09-22 10:30 | disposition home or self-care (01) ==
LOC: JER 05:44
PROC: 3E0333Z Introduction of Anti-inflammatory into Peripheral Vein, Percutaneous Approach (ICD-10-PCS; principal; 2021-09-22)
PROC: 3E033GC Introduction of Other Therapeutic Substance into Peripheral Vein, Percutaneous Approach (ICD-10-PCS; 2021-09-22)
PROC: 3E033GC Introduction of Other Therapeutic Substance into Peripheral Vein, Percutaneous Approach (ICD-10-PCS; 2021-09-22)
DX: G43.909 Migraine, unspecified, not intractable, without status migrainosus (principal)
CPT/HCPCS: 82962; 99284-25

== ENCOUNTER 2022-07-18 11:41 | Emergency (ER) | payer OTHER ==
[2022-07-18 11:53] VITALS: BP 136/74; PULSE 84; RESP 18; TEMP 97.7; BMI 28.3
[2022-07-18] MEDS ORDERED: levETIRAcetam 500 MG/5 ML INJECTION VIAL IVPB ONE ×2 (13:18→13:29)
[2022-07-18] MEDS ORDERED: ACETAMINOPHEN 1000 MG/100 ML BAG IVPB ONE (13:18)
[2022-07-18] MEDS ORDERED: METOCLOPRAMIDE HCL INJECTION 10 MG/2 ML VIAL IVPB ONE (13:20)
[2022-07-18 13:22] LABS: PH,URINE 5.5 (5.0-8.0); URINE APPEARANCE CLEAR; URINE BILIRUBIN NEGATIVE (NEGATIVE); URINE COLOR YELLOW; URINE GLUCOSE (UA) NEGATIVE (NEGATIVE); URINE KETONE NEGATIVE (NEGATIVE); URINE LEUK ESTERASE NEGATIVE (NEGATIVE); URINE NITRITE NEGATIVE (NEGATIVE); URINE PROTEIN TRACE (NEGATIVE)
[2022-07-18] MEDS ORDERED: METOCLOPRAMIDE HCL INJECTION 10 MG/2 ML VIAL ONE (13:29)
[2022-07-18] MEDS ORDERED: ACETAMINOPHEN INJECTION 100 ML IVPB ONE (13:30)
[2022-07-18 13:57] LABS: BASO % 0.6 % (0-2.0); EOS % 1.2 % (0-4.5); HEMATOCRIT 38.7 % (32.4-45.2); HEMOGLOBIN 13.4 GM/dL (10.7-15.3); LYMPH % 43.7 % (8-40); MCH 32.4 pg (25.7-33.7); MCHC 34.7 g/dl (32.0-36.0); MEAN CELL VOLUME 93.2 fl (80-96); MEAN PLT VOLUME 8.3 fl (7.5-11.1); MONO % 5.2 % (3.8-10.2); NEUT % 49.3 % (42.8-82.8); PLATELET COUNT 211 10^3/uL (134-434); RBC 4.15 M/mm3 (3.60-5.2); RDW 12.1 % (11.6-15.6); WHITE BLOOD COUNT 6.1 K/mm3 (4.0-10.0)
[2022-07-18 14:46] LABS: CALCIUM 9.3 mg/dL (8.5-10.1)
[2022-07-18 14:47] LABS: ALBUMIN 4.1 g/dl (3.4-5.0); BLOOD UREA NITROGEN 14.9 mg/dL (7-18)
[2022-07-18 14:50] LABS: CREATININE 0.8 mg/dL (0.55-1.3)
[2022-07-18 14:52] LABS: BILIRUBIN,TOTAL 0.5 mg/dL (0.2-1); TOT PROT 7.9 g/dl (6.4-8.2)
== END 2022-07-18 16:30 | disposition home or self-care (01) ==
LOC: JER 11:41
PROC: 3E033NZ Introduction of Analgesics, Hypnotics, Sedatives into Peripheral Vein, Percutaneous Approach (ICD-10-PCS; principal; 2022-07-18)
PROC: 3E033GC Introduction of Other Therapeutic Substance into Peripheral Vein, Percutaneous Approach (ICD-10-PCS; 2022-07-18)
PROC: 3E033GC Introduction of Other Therapeutic Substance into Peripheral Vein, Percutaneous Approach (ICD-10-PCS; 2022-07-18)
DX: G40.89 Other seizures (principal); Z91.198 Patient's noncompliance with other medical treatment and regimen for other reason; Z20.822 Contact with and (suspected) exposure to COVID-19
CPT/HCPCS: 0241U-QW; 36415; 70450-TC; 80053; 81003; 84484; 84703; 85025; 87086; 93005; 93010; 99285-25